=== PATIENT | female | born 1950 | race Caucasian/White ===

== ENCOUNTER 2020-05-18 09:02 | Inpatient (IN) | payer MEDICARE, SELFPAY ==
[2020-05-18] VITALS (15 sets, daily range): BP systolic 73–100; BP diastolic 46–66; PULSE 64–98; RESP 16–19; TEMP 36.2–36.8; O2SAT 96–100; BMI 17.2; BMI 20.5
--- NOTE | 2020-05-18 09:06 | ED_ITS ---
HPI - Syncope General Chief Complaint: Fall Stated Complaint: DIZZY W/FALL, ? LOC Time Seen by Provider: 05/18/20 09:06 Source: patient and EMS Mode of arrival: EMS Limitations: no limitations History of Present Illness MD complaint: loss of consciousness, felt faint and collapsed Onset (ago): minute(s) -: second(s) Prodromal symptoms: vision changes and lightheaded Witnessed: Yes - by Bystander Context: standing up (went to answer door and felt dizzy syncopized) Injuries sustained associated with event: head (bump from 2 weeks ago after recent fall) Current symptoms: lightheaded and headache History: previous syncopal episode and other (UC flare with increased diarrhea and nausea) Treatments prior to arrival: IV fluids Related Data Allergies Allergy/AdvReac Type Severity Reaction Status Date / Time strawberry [[place]] Allergy Intermediate HIVES Verified 05/18/20 10:34 Sulfa (Sulfonamide Allergy Intermediate RASH Verified 05/18/20 10:34 Antibiotics) morphine Allergy Unknown itching Verified 05/18/20 10:34 Strawberries Allergy Unknown Unknown Uncoded 05/18/20 10:34 [place] C Allergy Unknown rash Uncoded 12/07/14 00:00 Review of Systems Review of Systems: Constitutional : No Fever, No Chills, pos Fatigue, No Malaise ENT/Mouth : No sore throat, No Rhinorrhea Eyes: No Eye Pain, No Swelling, No Redness Cardiovascular : No Chest Pain, No SOB, No Dyspnea on Exertion, No Orthopnea, No Edema, No Palpitations Respiratory : No Cough, No Sputum, No Wheezing Gastrointestinal : pos Nausea, No Vomiting, pos Diarrhea, No Constipation, No abdominal Pain, pos mild chronic intermittent Hematochezia, No Melena Genitourinary : No Dysuria, No Urinary Frequency, No Hematuria, Musculoskeletal : No joint pain, No Myalgias, No Joint Swelling Skin : No Skin Lesions, No rash Neuro : No Weakness, No Numbness, No Dizziness, pos Headache Psych : No Anxiety/Panic, No Depression All other systems reviewed and are negative [facility] Past Medical History Medical History (Updated 05/18/20 @ 12:23 by Alina Neal DO) Anemia Anxiety Ulcerative colitis Surgical History (Updated 05/18/20 @ 09:33 by Ivy Willard) Hx of tubal ligation Social History Social History (Reviewed 05/18/20 @ 10:31 by LOC Andersen Smoking Status: Former smoker Use of substances other than those prescribed or required for medical reasons: No Advance Directives: No Advance Directives Information Provided: No Physical Exam Vital Signs: Vital Signs: Vital Signs Temp Pulse Resp BP Pulse Ox 05/18/20 13:04 95/50 L 05/18/20 12:22 97.6 F 93 16 99 05/18/20 12:17 98 73/49 L 05/18/20 12:14 95 89/46 L 05/18/20 12:12 86 77/46 L 05/18/20 10:30 97/64 05/18/20 10:13 95 16 93/66 05/18/20 09:05 98.2 F 81 16 99/59 L 99 Body Mass Index 17.2 Appearance: Alert. Oriented X3. No acute distress. Eyes: Pupils equal, round and reactive to light. ENT: Pharynx normal. contusion to left occiput no laceration Neck: Normal inspection. Neck supple. in collar CVS: tachycardic heart rate and rhythm. Pulses normal. Respiratory: No respiratory distress. Breath sounds normal. Abdomen: Soft and nontender. Skin: Skin warm and dry. Normal skin color. Normal skin turgor. Extremities: No lower extremity edema. No calf ttp Neuro: Oriented X 3. No motor deficit. No sensory deficit. Course Course Course Narrative: I suspect lactic acidosis and hypotension is due to dehydration and not infection or severe sepsis. repeat IVF bolus ordered still dizzy and still orthostatic will admit for further workup repeat bolus and midodrine ordered MDM - Syncope MDM Narrative Medical decision making narrative: 69 yo female with UC has had a frequent bouts of diarrhea due to recent flare and poor appetite stood up and felt dizzy then syncopized - 2nd time in 2 weeks per her will need labs, ortho VS, IVF, CT scan of head/neck, dispo per results and findings Lab Data Result diagrams: 05/18/20 09:45 05/18/20 09:46 Labs: Lab Results 05/18/20 05/18/20 05/18/20 Range/Units 09:45 09:45 09:45 WBC 5.8 (4.8-10.8) X10*3/uL RBC 3.05 L (4.20-5.50) X10*6/uL Hgb 10.3 L (12.0-16.0) g/dl Hct 30.0 L (37-47) % MCV 98.4 H (80-98) fL MCH 33.8 H (27.0-33.0) pg MCHC 34.3 (31.0-35.0) g/dl RDW 14.6 (11.0-16.0) % Plt Count 499 H (160-400) X10*3/uL MPV 8.4 L (9.4-12.3) fL Immature Gran % (Auto) 0.7 H (0.0-0.4) % Neut % (Auto) 66.9 (45-73) % Lymph % (Auto) 20.2 (20-40) % Meagher % (Auto) 11.2 H (2-11) % Eos % (Auto) 0.3 (0-4) % Baso % (Auto) 0.7 (0-2) % Lymph # (Auto) 1.2 (1.2-4.9) X10*3/uL Meagher # (Auto) 0.7 (0.1-1.2) X10*3/uL Eos # (Auto) 0.0 (0.0-0.4) X10*3/uL Baso # (Auto) 0.0 (0.0-0.2) X10*3/uL Abs Immat Gran (auto) 0.04 H (0.00-0.03) X10*3/uL Absolute Neuts (auto) 3.9 (2.0-8.3) X10*3/uL Absolute Nucleated RBC 0.000 (0.0-0.012) X10*3/uL Nucleated RBC % (auto) 0.0 (0.0-0.2) /100WBC Hold Blue Top SEE NOTE Sodium (135-145) mmol/L Potassium (3.3-5.1) mmol/l Chloride (96-108) mmol/L Carbon Dioxide (22-29) mmol/L Anion Gap (12-20) BUN (9-16) mg/dL Creatinine (0.5-1.4) mg/dL Estim Creat Clear Calc Estimated GFR Random Glucose (60-115) mg/dL Lactic Acid (0.5-2.0) mmol/L Lactic Acid Fup @ 2Hr (0.5-2.0) mmol/L Calcium (8.4-10.2) mg/dL Magnesium 1.3 L* (1.6-2.6) mg/dL Total Bilirubin 0.2 (0.0-1.0) mg/dL Direct Bilirubin 0.2 (0.0-0.5) mg/dL AST 26 (5-31) U/L ALT 19 (0-31) U/L Alkaline Phosphatase 177 H (39-117) U/L Troponin I High Sens (<3.5-17.0) ng/L Total Protein 5.3 L (6.5-8.0) g/dL Albumin 2.2 L (3.5-5.0) g/dL Lipase 10 (8-78) U/L 05/18/20 05/18/20 05/18/20 Range/Units 09:45 09:45 09:46 WBC (4.8-10.8) X10*3/uL RBC (4.20-5.50) X10*6/uL Hgb (12.0-16.0) g/dl Hct (37-47) % MCV (80-98) fL MCH (27.0-33.0) pg MCHC (31.0-35.0) g/dl RDW (11.0-16.0) % Plt Count (160-400) X10*3/uL MPV (9.4-12.3) fL Immature Gran % (Auto) (0.0-0.4) % Neut % (Auto) (45-73) % Lymph % (Auto) (20-40) % Meagher % (Auto) (2-11) % Eos % (Auto) (0-4) % Baso % (Auto) (0-2) % Lymph # (Auto) (1.2-4.9) X10*3/uL Meagher # (Auto) (0.1-1.2) X10*3/uL Eos # (Auto) (0.0-0.4) X10*3/uL Baso # (Auto) (0.0-0.2) X10*3/uL Abs Immat Gran (auto) (0.00-0.03) X10*3/uL Absolute Neuts (auto) (2.0-8.3) X10*3/uL Absolute Nucleated RBC (0.0-0.012) X10*3/uL Nucleated RBC % (auto) (0.0-0.2) /100WBC Hold Blue Top Sodium 131 L (135-145) mmol/L Potassium 3.6 (3.3-5.1) mmol/l Chloride 97 (96-108) mmol/L Carbon Dioxide 22 (22-29) mmol/L Anion Gap 16 (12-20) BUN 18 H (9-16) mg/dL Creatinine 1.01 (0.5-1.4) mg/dL Estim Creat Clear Calc 36.5 Estimated GFR 55 Random Glucose 90 (60-115) mg/dL Lactic Acid 2.9 H* (0.5-2.0) mmol/L Lactic Acid Fup @ 2Hr (0.5-2.0) mmol/L Calcium 6.7 L (8.4-10.2) mg/dL Magnesium (1.6-2.6) mg/dL Total Bilirubin (0.0-1.0) mg/dL Direct Bilirubin (0.0-0.5) mg/dL AST (5-31) U/L ALT (0-31) U/L Alkaline Phosphatase (39-117) U/L Troponin I High Sens < 3.5 (<3.5-17.0) ng/L Total Protein (6.5-8.0) g/dL Albumin (3.5-5.0) g/dL Lipase (8-78) U/L 05/18/20 Range/Units 12:41 WBC (4.8-10.8) X10*3/uL RBC (4.20-5.50) X10*6/uL Hgb (12.0-16.0) g/dl Hct (37-47) % MCV (80-98) fL MCH (27.0-33.0) pg MCHC (31.0-35.0) g/dl RDW (11.0-16.0) % Plt Count (160-400) X10*3/uL MPV (9.4-12.3) fL Immature Gran % (Auto) (0.0-0.4) % Neut % (Auto) (45-73) % Lymph % (Auto) (20-40) % Meagher % (Auto) (2-11) % Eos % (Auto) (0-4) % Baso % (Auto) (0-2) % Lymph # (Auto) (1.2-4.9) X10*3/uL Meagher # (Auto) (0.1-1.2) X10*3/uL Eos # (Auto) (0.0-0.4) X10*3/uL Baso # (Auto) (0.0-0.2) X10*3/uL Abs Immat Gran (auto) (0.00-0.03) X10*3/uL Absolute Neuts (auto) (2.0-8.3) X10*3/uL Absolute Nucleated RBC (0.0-0.012) X10*3/uL Nucleated RBC % (auto) (0.0-0.2) /100WBC Hold Blue Top Sodium (135-145) mmol/L Potassium (3.3-5.1) mmol/l Chloride (96-108) mmol/L Carbon Dioxide (22-29) mmol/L Anion Gap (12-20) BUN (9-16) mg/dL Creatinine (0.5-1.4) mg/dL Estim Creat Clear Calc Estimated GFR Random Glucose (60-115) mg/dL Lactic Acid (0.5-2.0) mmol/L Lactic Acid Fup @ 2Hr 2.0 (0.5-2.0) mmol/L Calcium (8.4-10.2) mg/dL Magnesium (1.6-2.6) mg/dL Total Bilirubin (0.0-1.0) mg/dL Direct Bilirubin (0.0-0.5) mg/dL AST (5-31) U/L ALT (0-31) U/L Alkaline Phosphatase (39-117) U/L Troponin I High Sens (<3.5-17.0) ng/L Total Protein (6.5-8.0) g/dL Albumin (3.5-5.0) g/dL Lipase (8-78) U/L ECG Data Attestation: I personally reviewed and interpreted this ECG as follows: ECG interpretation date: 05/18/20 ECG interpretation time: 09:24 Interpretation: Rate: 115 Rhythm: sinus tachycardia wtih PACs [place]: left Normal P waves. Normal MIKI. Normal QRS complex. ST T wave : nonspecific, no CHELSIE qTC: prolonged prior studies: none The study has been interpreted contemporaneously by me. . Critical Care Time Critical Care Time Critical Care Time: Yes Total Critical Care Time: 60 Attestation: 3L of IVF rescuscitation for dehydration I personally attest to this time spent taking care of the patient Discharge Plan Discharge Clinical Impression: Orthostatic hypotension Syncope Qualifiers: Syncope type: unspecified Qualified Code(s): R55 - Syncope and collapse Patient Disposition: Admitted As Inpatient
--- NOTE | 2020-05-18 09:09 | CT_ITS ---
EXAMINATION: CT HEAD WITHOUT CONTRAST CLINICAL INFORMATION: Fall COMPARISON: March 22, 2020 TECHNIQUE: Contiguous axial imaging was performed from the skull base to vertex without intravenous administration of contrast. This CT examination was performed using dose optimization techniques as appropriate, variously including the following: *Automated exposure control *Adjustment of mA and/or kV according to patient size (this includes techniques or standardized protocols for targeted exams where dose is matched to indication/reason for exam; i.e. extremities or head) *Use of iterative reconstruction technique DLP: 643 mGy-cm FINDINGS: There is no evidence of acute intracranial hemorrhage or territorial infarction. No abnormal mass effect or midline shift is seen. Anderson to white matter differentiation is well preserved. No extra-axial fluid collections are identified. There is mild prominence of the ventricles, sulci, and cisterns consistent with generalized atrophy. There is an old infarct seen involving the left frontal lobe. There is periventricular white matter low density consistent with microangiopathy. The osseous structures and soft tissues are normal. The mastoid air cells and visualized portions of the paranasal sinuses are well aerated. IMPRESSION: No acute intracranial pathology. 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
--- NOTE | 2020-05-18 09:09 | CT_ITS ---
EXAMINATION: CT CERVICAL SPINE WITHOUT CONTRAST CLINICAL INFORMATION: Fall, trauma, pain COMPARISON: CT cervical spine 03/22/2020 TECHNIQUE: Multidetector volumetric CT imaging of the cervical spine is performed without contrast in the axial plane. Additional 2D reformatted coronal and sagittal images are generated on the CT workstation and uploaded to PACS. DOSE LOWERING TECHNIQUES: This CT examination was performed using dose optimization techniques as appropriate, variously including the following: *Automated exposure control *Adjustment of mA and/or kV according to patient size (this includes techniques or standardized protocols for targeted exams where dose is matched to indication/reason for exam; i.e. extremities or head) *Use of iterative reconstruction technique DLP: 217 mGy-cm FINDINGS: There is no cervical vertebral fracture or vertebral compression. The craniocervical junction is normal. The odontoid appears. There is no prevertebral soft tissue swelling. No destructive process. There is normal lordosis with mild leftward tilting again seen on coronal imaging. There are degenerative disc changes C5-C6 with disc narrowing and vertebral spurring. Lesser degenerative disc changes are present at C6-C7 and C4-C5. There is variable bilateral facet degeneration, greatest C7-T1. Degenerative disc changes also present upper thoracic spine T1-T2. Again, there is borderline spondylolisthesis at C7-T1 similar to prior studies, likely related to the degenerative facet changes. No perched facet. Lung apices show no pneumothorax. There is some stable scarring right lung apex. Some opacified lower left mastoid air cells are again noted. No destructive process or air-fluid level. IMPRESSION: 1. No acute bony abnormality or prevertebral soft tissue swelling. 2. Variable degenerative disc and degenerative facet changes with borderline spondylolisthesis C7-T1 similar to prior imaging.
--- NOTE | 2020-05-18 09:09 | XR_ITS ---
EXAMINATION: XR CHEST CLINICAL INFORMATION: Cough COMPARISON: CT scan of March 22, 2020 and chest x-ray of May 11, 2019 TECHNIQUE: AP portable view of the chest was obtained. FINDINGS: No significant abnormality is noted involving the heart, lungs, mediastinum, bony thorax or soft tissues. There is some scarring lung bases bilaterally. IMPRESSION: No significant acute parenchymal disease.
--- NOTE | 2020-05-18 09:10 | ECG_ITS ---
Test Reason : FALL Blood Pressure : / mmHG Vent. Rate : 115 BPM Atrial Rate : 115 BPM P-R Int : 148 ms QRS Dur : 068 ms QT Int : 354 ms P-R-T Axes : 057 -26 066 degrees QTc Int : 489 ms Sinus tachycardia with frequent Premature atrial complexes Low voltage QRS Left axis deviation Nonspecific ST abnormality Abnormal ECG Compare to previous EKG Premature atrial complexes are new ST more depressed Anterolateral leads Referred By: Alina Neal Electronically Signed By:BHUPINDER WILSON MD
[2020-05-18] MEDS: 0.9 % Sodium Chloride 500 ML 999 ML IVCONT ×2 (09:26)
[2020-05-18] MEDS: Acetaminophen 325 MG TABLET 650 MG PO (09:30)
[2020-05-18 09:52] LABS: MANUAL DIFF FLAG NO
[2020-05-18 09:55] LABS: Basophils Percent Auto 0.7 % (0-2); Eosinophils Percent Auto 0.3 % (0-4); Hemoglobin 10.3 g/dl (12.0-16.0); Imm Gran Abs Auto 0.04 X10*3/uL (0.00-0.03); Imm Gran Pct Auto 0.7 % (0.0-0.4); Lymphocytes Absolute Auto 1.2 X10*3/uL (1.2-4.9); Lymphocytes Percent Auto 20.2 % (20-40); Mean Corpuscular HGB Conc 34.3 g/dl (31.0-35.0); Mean Corpuscular Hemoglobin 33.8 pg (27.0-33.0); Mean Corpuscular Volume 98.4 fL (80-98); Mean Platelet Volume 8.4 fL (9.4-12.3); Monocytes Absolute Auto 0.7 X10*3/uL (0.1-1.2); Monocytes Percent Auto 11.2 % (2-11); Neutrophils Absolute Auto 3.9 X10*3/uL (2.0-8.3); Neutrophils Percent Auto 66.9 % (45-73); Platelet Count 499 X10*3/uL (160-400); Red Blood Count 3.05 X10*6/uL (4.20-5.50); Red Cell Distribution Width 14.6 % (11.0-16.0); White Blood Count 5.8 X10*3/uL (4.8-10.8)
[2020-05-18 10:12] LABS: Lactic Acid 2.9 mmol/L (0.5-2.0)
[2020-05-18 10:14] LABS: Blood Urea Nitrogen 18 mg/dL (9-16); Creatinine Clr Calc Pharmacy 36.5; Estimated Glomerular Filt Rate 55; Glucose Random 90 mg/dL (60-115)
[2020-05-18 10:21] LABS: Alanine Aminotransferase 19 U/L (0-31); Albumin Level 2.2 g/dL (3.5-5.0); Alkaline Phosphatase 177 U/L (39-117); Aspartate Amino Transferase 26 U/L (5-31); Bilirubin Direct 0.2 mg/dL (0.0-0.5); Bilirubin Total 0.2 mg/dL (0.0-1.0); Lipase 10 U/L (8-78); Magnesium 1.3 mg/dL (1.6-2.6); Total Protein 5.3 g/dL (6.5-8.0); Troponin-I High Sensitivity < 3.5 ng/L (<3.5-17.0)
[2020-05-18 10:32] LABS: Anion Gap 16 (12-20); Calcium 6.7 mg/dL (8.4-10.2); Carbon Dioxide 22 mmol/L (22-29); Chloride 97 mmol/L (96-108); Potassium 3.6 mmol/l (3.3-5.1); Sodium 131 mmol/L (135-145)
[2020-05-18] MEDS: Magnesium Sulfate/H2O 2 GM/50 ML PIGGYBACK IV (10:35)
[2020-05-18] MEDS: 0.9 % Sodium Chloride 1,000 ML 999 ML IVCONT ×3 (11:11→14:06)
[2020-05-18 11:51] LABS: Reflex Lactate? Lactic Acid Added
--- NOTE | 2020-05-18 12:22 | PC.NURSE ---
MD AWARE OF POSITIVE ORTHO BP. PLAN FOR ADMISSION TO HOSPITAL. PT AWARE.
[2020-05-18] MEDS: Midodrine HCl 5 MG TABLET PO ×2 (14:05→15:38)
--- NOTE | 2020-05-18 14:07 | PC.NURSE ---
HOSPITALIST IN TO SEE PT FOR ADMISSION. PT BP 80'S SOMETIMES 70'S SYSTOLICALY. P REPORTS DIZZINESS WHEN SHE IS LAYED DOWN. ANOTHER LITER OF NS HUNG. ALSO ORDER FOR MIDRODRINE GIVEN. PT ALERT AND ORIENTED X 3.
[2020-05-18 14:08] LABS: SARS COV2 PCR INHOUSE NEGATIVE (Negative)
--- NOTE | 2020-05-18 16:27 | CT_ITS ---
EXAMINATION: CT ABDOMEN AND PELVIS WITHOUT CONTRAST CLINICAL INFORMATION: 69-year-old female patient with flare of ulcerative colitis. COMPARISON: Last CT of the abdomen and pelvis on 03/22/2020. ([place] ulcerative colitis. Fatty liver). TECHNIQUE: Multidetector volumetric imaging was performed from the superior aspect of the liver through the pubic symphysis. Sagittal and coronal reformatted images were obtained on the technologist's workstation. This CT examination was performed using dose optimization techniques as appropriate, variously including the following: *Automated exposure control *Adjustment of mA and/or kV according to patient size (this includes techniques or standardized protocols for targeted exams where dose is matched to indication/reason for exam; i.e. extremities or head) *Use of iterative reconstruction technique DLP: 1467 mGy-cm FINDINGS: [employer] LIBRARIAN: Air filled transverse and descending colon or ahaustral diagnostic for the patient's diagnosis of ulcerative colitis. There is no evidence of toxic megacolon. LUNG BASES: Mild dependent atelectasis involves both lower lobes. LIVER, GALLBLADDER, AND BILIARY TREE: The liver is normal in size and shape showing diffuse fatty infiltration. The bile ducts are not dilated. No focal lesions are seen. The gallbladder is normal in size. PANCREAS: Unremarkable. SPLEEN: Unremarkable. A 0.5 cm accessory spleen lies medial to the spleen. ADRENAL GLANDS: Unremarkable. KIDNEYS AND URETERS: The kidneys are normal in size, shape, and attenuation. No hydronephrosis, hydroureter, or calculi seen. A punctate calculus near the right renal hilum is felt to be vascular in origin. No acute perinephric stranding. BLADDER: Unremarkable. The hutch diverticulum on the right side is filled with urine. GASTROINTESTINAL TRACT: Again there is universal ulcerative colitis with loss of the haustral markings, and circumferential spiculation of the colonic wall. Hyperemia of the colonic wall is manifested by proliferation of the vasa rectae. There is no evidence of free air or toxic megacolon. ABDOMINAL WALL: No significant hernia is appreciated. LYMPH NODES: Normal. VASCULAR: Unremarkable. PELVIC VISCERA: Unremarkable. There is diffuse calcification of the vas deferens. OSSEOUS STRUCTURES: Degenerative disc disease involves the lumbar spine. Large Schmorl's node involves the superior endplate of L1. There is generalized facet arthropathy of the lumbar spine. IMPRESSION: 1. [place] ulcerative colitis. 2. No evidence of perforation or toxic microcolon. 3. Diffuse fatty infiltration of the liver.
--- NOTE | 2020-05-18 16:29 | P.HPIM_ITS ---
History of Present Illness Date of Service: 05/18/20 Chief Complaint: syncope this is a 69-year-old female with a past medical history of ulcerative colitis, CAD, hyperlipidemia, anemia, anxiety, alcohol abuse and dependence who presents to the hospital with complaints of a syncopal episode on the morning of adm ission. Patient reports that her home nurse was there to administer her daily medications and when the patient stood up from a supine position, she had a syncopal episode and subsequently was brought to the emergency room. Upon further questioning, the patient denies any chest pain or shortness of breath prior to this. She denies any dizziness prior to this. She does endorse that for the last 3 weeks she has had 10-15 bowel movements per day and some mild right-sided abdominal pain. She reports that she is having a ulcerative colitis flare, however she has not seen her client account specialist Dr. Tello because I've has had this problem for 20 years. in the emergency room, patient was found to be significantly hypotensive with blood pressures ranging from the 70s to 90s systolic without any symptoms of hypotension. She was given 3 L of intravenous fluids a dose of Tylenol and magnesium, 10 mg of midodrine with improvement in her blood pressure readings and subsequently admission to the floor was requested. Patient is seen and examined the emergency room. She denies any dizziness or chest pain. She reports feeling back to her baseline self and reports feeling no symptoms of hypotension. Review of Systems Review of Systems: General - no fevers or chills, no malaise HEENT - No MORALES, no dizziness Cardiovascular - no chest pain, no edema, no orthopnea Respiratory - no shortness of breath or cough, Abdominal- +N/V/D for 3 weeks, mild abdominal pain, tolerating diet at home Neuro - +weakness MSK - no MSK pain [facility] Medical History (Updated 05/18/20 @ 16:37 by Cj Jaramillo MD) Alcohol abuse Anemia Anxiety CAD (coronary artery disease) Hyperlipidemia Ulcerative colitis Family History (Updated 05/18/20 @ 16:39 by Cj Jaramillo MD) Father Liver cancer Alcoholism Surgical History (Updated 05/18/20 @ 09:33 by Ivy Willard) Hx of tubal ligation Social History Smoking Status: Former smoker Use of substances other than those prescribed or required for medical reasons: No Advance Directives: No Advance Directives Information Provided: No Meds Allergies Allergy/AdvReac Type Severity Reaction Status Date / Time strawberry [[place]] Allergy Intermediate HIVES Verified 05/18/20 10:34 Sulfa (Sulfonamide Allergy Intermediate RASH Verified 05/18/20 10:34 Antibiotics) morphine Allergy Unknown itching Verified 05/18/20 10:34 Strawberries Allergy Unknown Unknown Uncoded 05/18/20 10:34 [place] C Allergy Unknown rash Uncoded 12/07/14 00:00 Home Medications Medication Instructions Recorded Confirmed Type ascorbic acid (vitamin C) 250 mg PO DAILY 05/18/20 05/18/20 History atorvastatin 40 mg PO BEDTIME 05/18/20 05/18/20 History cyanocobalamin (vitamin B-12) 1 tab PO DAILY 05/18/20 05/18/20 History dicyclomine 20 mg PO QIDACHS PRN 05/18/20 05/18/20 History escitalopram oxalate 5 mg PO DAILY 05/18/20 05/18/20 History ferrous sulfate 325 mg PO BIDWM 05/18/20 05/18/20 History fluticasone propion-salmeterol 1 puff PO Q12H 05/18/20 05/18/20 History [Wixela Inhub] folic acid 1 mg PO DAILY 05/18/20 05/18/20 History hydroxyzine HCl 25 mg PO DAILY PRN 05/18/20 05/18/20 History loratadine 10 mg PO DAILY PRN 05/18/20 05/18/20 History mesalamine 400 mg PO QID 05/18/20 05/18/20 History nabumetone 750 mg PO BID 05/18/20 05/18/20 History omega-3 acid ethyl esters 1 g PO DAILY 05/18/20 05/18/20 History Physical Exam Vital Signs and Narrative: Vital Signs: Last Vital Signs Temp 97.6 F 05/18/20 12:22 Pulse 78 05/18/20 15:38 Resp 16 05/18/20 12:22 BP 92/55 L 05/18/20 15:38 Pulse Ox 99 05/18/20 12:22 Body Mass Index 17.2 General - no acute distress, appears comfortable HEENT - EOMI Cardiovascular - regular rate and rhythm, S1-S2 Lungs - normal respiratory effort, clear to auscultation bilaterally, no wheezing Abdomen - soft without rebound or guarding, R sided tenderness; +BS Extremities - no edema bilaterally Neuro - awake and alert, no focal deficits Skin - Warm/Dry Results Labs Labs: Laboratory Tests 05/18/20 05/18/20 05/18/20 09:45 09:45 09:45 WBC 5.8 RBC 3.05 L Hgb 10.3 L Hct 30.0 L MCV 98.4 H MCH 33.8 H MCHC 34.3 RDW 14.6 Plt Count 499 H MPV 8.4 L Immature Gran % (Auto) 0.7 H Neut % (Auto) 66.9 Lymph % (Auto) 20.2 [place] % (Auto) 11.2 H Eos % (Auto) 0.3 Baso % (Auto) 0.7 Lymph # (Auto) 1.2 [place] # (Auto) 0.7 Eos # (Auto) 0.0 Baso # (Auto) 0.0 Abs Immat Gran (auto) 0.04 H Absolute Neuts (auto) 3.9 Absolute Nucleated RBC 0.000 Nucleated RBC % (auto) 0.0 Hold Blue Top SEE NOTE Sodium Potassium Chloride Carbon Dioxide Anion Gap BUN Creatinine Estim Creat Clear Calc Estimated GFR Random Glucose Lactic Acid Lactic Acid Fup @ 2Hr Calcium Magnesium 1.3 L* Total Bilirubin 0.2 Direct Bilirubin 0.2 AST 26 ALT 19 Alkaline Phosphatase 177 H Troponin I High Sens Total Protein 5.3 L Albumin 2.2 L Lipase 10 Coronavirus (PCR) 05/18/20 05/18/20 05/18/20 09:45 09:45 09:46 WBC RBC Hgb Hct MCV MCH MCHC RDW Plt Count MPV Immature Gran % (Auto) Neut % (Auto) Lymph % (Auto) [place] % (Auto) Eos % (Auto) Baso % (Auto) Lymph # (Auto) [place] # (Auto) Eos # (Auto) Baso # (Auto) Abs Immat Gran (auto) Absolute Neuts (auto) Absolute Nucleated RBC Nucleated RBC % (auto) Hold Blue Top Sodium 131 L Potassium 3.6 Chloride 97 Carbon Dioxide 22 Anion Gap 16 BUN 18 H Creatinine 1.01 Estim Creat Clear Calc 36.5 Estimated GFR 55 Random Glucose 90 Lactic Acid 2.9 H* Lactic Acid Fup @ 2Hr Calcium 6.7 L Magnesium Total Bilirubin Direct Bilirubin AST ALT Alkaline Phosphatase Troponin I High Sens < 3.5 Total Protein Albumin Lipase Coronavirus (PCR) 05/18/20 05/18/20 12:38 12:41 WBC RBC Hgb Hct MCV MCH MCHC RDW Plt Count MPV Immature Gran % (Auto) Neut % (Auto) Lymph % (Auto) [place] % (Auto) Eos % (Auto) Baso % (Auto) Lymph # (Auto) [place] # (Auto) Eos # (Auto) Baso # (Auto) Abs Immat Gran (auto) Absolute Neuts (auto) Absolute Nucleated RBC Nucleated RBC % (auto) Hold Blue Top Sodium Potassium Chloride Carbon Dioxide Anion Gap BUN Creatinine Estim Creat Clear Calc Estimated GFR Random Glucose Lactic Acid Lactic Acid Fup @ 2Hr 2.0 Calcium Magnesium Total Bilirubin Direct Bilirubin AST ALT Alkaline Phosphatase Troponin I High Sens Total Protein Albumin Lipase Coronavirus (PCR) NEGATIVE Assessment and Plan (1) Orthostatic hypotension: Status: Acute (2) Ulcerative colitis: Status: Acute This is a 69 F with a PMH of UC, previous alcohol use (reports last drink >1 months ago) who presents to the hospital after a syncopal episode which she sustained after attempting to get up from a sitting/ supine position at home today. Upon further questioning, the patient reports that she has had right- sided abdominal pain and worsening of her chronic diarrhea, 10-15 bowel movements a day. She is admitted for significant dehydration, hypotension and ulcerative colitis flare. 1.Severe dehydration secondary to UC flare start solu-cortef aggresstive fluid resuscitation GI consult Continue her baseline for UC medications 2. hypotension No evidence of infection at this time, has improved with resuscitation. Will continue with IVF Lactate resolved with fluids alone 3. orthostasis Again suspect secondary to dehydration, will recheck an ambulate as her symptoms improved 4. previous alcohol abuse and dependence Patient reports no drink for the last 1 month Monitor with CIWA for the time being Full Code DVT pptx -- high risk, subcut. heparin
--- NOTE | 2020-05-18 17:20 | PC.NURSE ---
called to [facility] for report. waiting call back
--- NOTE | 2020-05-18 18:02 | PC.NURSE ---
CALL AGAIN TO [facility] FOR REPORT, NO ANSWER FROM RN.
[2020-05-18 18:31] LABS: C Reactive Protein 2.89 mg/dL (< or = 0.50)
[2020-05-18] MEDS: Lactated Ringers 1,000 ML 100 ML IVCONT (19:30)
[2020-05-18] MEDS: Atorvastatin Calcium 40 MG TABLET PO (21:37)
[2020-05-18] MEDS: Mesalamine 400 MG CAP.DRTAB. PO (21:37)
[2020-05-18] MEDS: Heparin Sodium,Porcine 5,000 UNIT/ML VIAL 5000 UNIT SUBCUT (21:38)
[2020-05-18] MEDS: 0.9 % Sodium Chloride Flush 3 ML SYRINGE IVFLUSH (22:23)
[2020-05-19] VITALS (13 sets, daily range): BP systolic 80–181; BP diastolic 42–92; PULSE 64–94; RESP 18–20; TEMP 36.2–36.9; O2SAT 92–99
[2020-05-19] MEDS: 0.9 % Sodium Chloride 500 ML 999 ML IVCONT ×2 (04:24→05:29)
--- NOTE | 2020-05-19 04:54 | PC.NURSE ---
Addendum entered by Danni Aguero 05/19/20 07:17: new order for midodrine 5mg po received & administered @ 0700 approx, next shift to follow Original Note: 0302 bp 82/60 manual hr 66 rr 18 asymptomatic with 10 repeat 84/52,hr 6, rr18 asymptomatic, wants tea. tiger connect to hospitalist Dr Thomas & NS 500ml NS @ 999ml/h given as ordered. Also new order obtained for regular diet & tea given as requested. s/p bolus bp repeat 82/52 on right manual and 80/48left manual @0505, re-tigerconnect texted hospitalist
[2020-05-19] MEDS: Lactated Ringers 1,000 ML 100 ML IVCONT (05:33)
[2020-05-19 06:34] LABS: Hematocrit 25.2 % (37-47); Hemoglobin 8.3 g/dl (12.0-16.0); Mean Corpuscular HGB Conc 32.9 g/dl (31.0-35.0); Mean Corpuscular Hemoglobin 33.2 pg (27.0-33.0); Mean Corpuscular Volume 100.8 fL (80-98); Mean Platelet Volume 8.7 fL (9.4-12.3); Platelet Count 373 X10*3/uL (160-400); Red Cell Distribution Width 15.3 % (11.0-16.0); White Blood Count 2.7 X10*3/uL (4.8-10.8)
[2020-05-19] MEDS: Midodrine HCl 5 MG TABLET PO (06:54)
[2020-05-19 07:02] LABS: Anion Gap 15 (12-20); Blood Urea Nitrogen 10 mg/dL (9-16); Carbon Dioxide 14 mmol/L (22-29); Chloride 108 mmol/L (96-108); Creatinine Clr Calc Pharmacy 69.6; Estimated Glomerular Filt Rate > 60; Glucose Random 119 mg/dL (60-115); Magnesium 1.7 mg/dL (1.6-2.6); Potassium 3.6 mmol/l (3.3-5.1); Sodium 133 mmol/L (135-145)
[2020-05-19 07:54] LABS: Calcium 5.4 mg/dL (8.4-10.2)
[2020-05-19] MEDS: Mesalamine 400 MG CAP.DRTAB. PO ×4 (07:55→20:53)
[2020-05-19] MEDS: Escitalopram Oxalate 5 MG TABLET PO (07:55)
[2020-05-19] MEDS: Folic Acid 1 MG TABLET PO (07:56)
[2020-05-19] MEDS: Cyanocobalamin (Vitamin B-12) 1,000 MCG TABLET 1000 MCG PO (07:56)
--- NOTE | 2020-05-19 08:06 | P.CDIC_ITS ---
CDI Concurrent Query Service Date: 05/19/20 Documentation Clarification: Please clarify if you are treating a proba ble/suspected/likely or confirmed: LAB FINDINGS: Hyponatremia Please specify if known Provider Response: Other Other Diagnosis: Hyponatremia PLEASE DO NOT DELETE/MODIFY EXISTING CONTENT Additional information is needed in order to code to the highest accuracy and appropriate Severity of Illness (SOI). Please clarify the information noted below in your progress notes and discharge summary. Risk Factors/Clinical Indicators/Treatments LABS: sodium 131 L IV fluids, severe dehydration CDS: Tamar Garcia CCS, CDIS Contact Number: [phone] Please Review the information above and exercise your independent professional judgment in responding to the query. If you concur, pleas document in the PROGRESS NOTES and DISCHARGE SUMMARY. If you do not agree with the query, please document in the query above. THIS QUERY IS PART OF THE PERMANENT MEDICAL RECORD
--- NOTE | 2020-05-19 08:11 | P.CDIC_ITS ---
CDI Concurrent Query Service Date: 05/19/20 Documentation Clarification: Please clarify if you are treating a proba ble/suspected/likely or confirmed: LABS: Hypomagnesemia Please specify if known Provider Response: Other Other Diagnosis: Hypomagnesemia PLEASE DO NOT DELETE/MODIFY EXISTING CONTENT Additional information is needed in order to code to the highest accuracy and appropriate Severity of Illness (SOI). Please clarify the information noted below in your progress notes and discharge summary. Risk Factors/Clinical Indicators/Treatments LABS: magnesium 1.3 IV fluids, magnesium Severe dehydration CDS: Tamar Garcia CCS, CDIS Contact Number: [phone] Please Review the information above and exercise your independent professional judgment in responding to the query. If you concur, pleas document in the PROGRESS NOTES and DISCHARGE SUMMARY. If you do not agree with the query, please document in the query above. THIS QUERY IS PART OF THE PERMANENT MEDICAL RECORD
[2020-05-19 08:47] LABS: Alanine Aminotransferase 13 U/L (0-31); Albumin Level 1.5 g/dL (3.5-5.0); Alkaline Phosphatase 127 U/L (39-117); Aspartate Amino Transferase 25 U/L (5-31); Bilirubin Direct < 0.2 mg/dL (0.0-0.5); Bilirubin Total 0.2 mg/dL (0.0-1.0); Total Protein 3.8 g/dL (6.5-8.0)
[2020-05-19 08:54] LABS: Band Neutrophils Percent 16 % (3-5); Basophils Percent Manual 1 % (0-1); Lymphocytes Absolute Manual 0.3 X10*3/uL (0.6-4.8); Lymphocytes Percent Manual 12 % (20-40); Neutrophils Absolute Manual 2.3 X10*3/uL (2.2-7.9); Neutrophils Percent Manual 71 % (45-73)
[2020-05-19 08:55] LABS: Macrocytosis 2+; Platelet Estimate NORMAL (NORMAL); Platelet Morphology Comment NORMAL; RBC Morphology NOTED
[2020-05-19 08:56] LABS: Hypochromasia 1+
--- NOTE | 2020-05-19 09:04 | MHC.CM.PN ---
CM met with patient at the bedside who reports she amb with a cane, lives alone and is independent. Patient states she does have a HCP, son Anshul, copy requested. Discussed discharge plan, home with resumption of services with [facility]. [facility]. CM will continue to follow for discharge needs.
--- NOTE | 2020-05-19 10:09 | P.CDIC_ITS ---
CDI Concurrent Query Service Date: 05/19/20 Documentation Clarification: Please clarify if you are treating a proba ble/suspected/likely or confirmed: Consistency: Cachexia Malnutrition, mild, moderate or severe Please specify if known or other Provider Response: Severe Protein-Calorie Malnutrition Other Diagnosis: Severe Protein-Calorie Malnutrition PLEASE DO NOT DELETE/MODIFY EXISTING CONTENT Additional information is needed in order to code to the highest accuracy and appropriate Severity of Illness (SOI). Please clarify the information noted below in your progress notes and discharge summary. Risk Factors/Clinical Indicators/Treatments BMI 17.2 Ed Total protein 5.3 3.8 Albumin 2.2 1.5 Dehydration, chronic diarrhea, poor appetite, hypotensive. IV fluids CDS: Tamar Garcia CCS, CDIS Contact Number: [phone] Please Review the information above and exercise your independent professional judgment in responding to the query. If you concur, pleas document in the PROGRESS NOTES and DISCHARGE SUMMARY. If you do not agree with the query, please document in the query above. THIS QUERY IS PART OF THE PERMANENT MEDICAL RECORD
[2020-05-19 11:10] LABS: Hematocrit 27.4 % (37-47); Hemoglobin 8.9 g/dl (12.0-16.0)
--- NOTE | 2020-05-19 11:41 | MHC.CLN ---
WILL START 2GM NA DIET R/T HX CAD WILL ALSO START ENSURE BID R/T POOR PO INTAKE FOLLOWING
[2020-05-19 12:23] LABS: Folate 17.3 ng/mL (> or = 4.0); Vitamin B12 > 2000 pg/mL (200-900)
[2020-05-19 12:34] LABS: Lactic Acid 5.1 mmol/L (0.5-2.0)
[2020-05-19 13:04] LABS: Reflex Lactate? Lactic Acid Added
--- NOTE | 2020-05-19 13:21 | CONS_ITS ---
DATE OF SERVICE: 05/19/2020 REFERRING PHYSICIAN: Cj Jaramillo MD REASON FOR CONSULTATION: Ulcerative colitis exacerbation. HISTORY OF PRESENT ILLNESS: The patient is a 69-year-old woman with longstanding history of ulcerative colitis, who was admitted to the hospital on May 18 after a syncopal episode. She reports symptoms of diarrhea with occasional bleeding over the last 3 to 4 weeks with 10 to 15 bowel movements and some mild generalized abdominal pain. Stools are described as watery with occasional red blood. She was evaluated in the emergency department with laboratory studies and noted to have hyponatremia with a mild elevation of her alkaline phosphatase. Imaging was undertaken with CT scanning of the abdomen and pelvis. This is reviewed and is interpreted as showing changes consistent with her known history of ulcerative colitis. No perforation was noted. She was admitted to the hospital and started on IV steroids and has had improvement in her diarrhea with less watery stools, only 2 this morning by her report. She reports that she has had 10 to 15 loose watery bowel movements daily over the past 3 to 4 weeks, but did not call Dr. Tello because she noted that was always Saturday when she thought to call. She last underwent colonoscopy on January 15, 2018 and had a changes of active disease with pseudopolyps and scarring. Pathology showed mild to moderate active chronic colitis without dysplasia. She has been maintained on mesalamine 1600 mg t.i.d. with Imodium. It has been recommended that she consider Humira treatment or another biologic, but she has been refractory to considering this. PAST MEDICAL HISTORY: 1. Ulcerative colitis. 2. Coronary artery disease with history of CA and negative cardiac cath. 3. Hyperlipidemia. 4. Anemia. 5. Anxiety. 6. Alcohol abuse. CURRENT MEDICATIONS: Her current medication list is reviewed in the chart. ALLERGIES: MULTIPLE MEDICATION ALLERGIES AND FOOD ALLERGIES REVIEWED. FAMILY HISTORY: This is reviewed with the patient and is noncontributory. SOCIAL HISTORY: There is no current substance abuse, she formally smoked. REVIEW OF SYSTEMS: SKIN: No pruritus. HEENT: Negative. CARDIOPULMONARY: She denies shortness of breath or chest pain. GASTROINTESTINAL: As above. GENITOURINARY: Negative. NEUROPSYCHIATRIC: Negative. PHYSICAL EXAMINATION: GENERAL: Shows a pleasant female, sitting comfortably in bed. She appears to be tolerating a diet. VITAL SIGNS: Reviewed in electronic medical record and are stable. SKIN: Anicteric. HEENT: No scleral icterus. NECK: Without lymphadenopathy or thyromegaly. LUNGS: Clear. HEART: Regular rate and rhythm. S1, S2. No murmur. ABDOMEN: Soft without focal masses or tenderness. Bowel sounds are present. No organomegaly is noted. EXTREMITIES: Without edema. LABORATORY DATA: Shows a white blood cell count of 2.7, hematocrit 25.2. IMPRESSION: Ulcerative colitis. She appears to have had an exacerbation of her symptoms over the past month and I agree with treating her with steroids as you are doing. I discussed with her the need to consider more aggressive therapy given her frequent hospitalizations in need for prednisone. She should follow up after discharge with Dr. Tello for consideration of possible biologic agent such as Humira. Thanks for asking me to see her. I will follow her in the hospital with you. MD LENI Faith/GLADYS / [phone]
[2020-05-19] MEDS: Piperacillin Sodium/Tazobactam 3.375 GM in 0.9 % Sodium Chloride 50 ML IV ×2 (13:42→20:53)
--- NOTE | 2020-05-19 14:00 | CA_ITS ---
Transthoracic Echocardiogram Patient (Last, First, Middle): Kasandra Mendez M Gender: Female Date of : 1950 Age: 69 Procedure Date: 05/19/2020 Procedure Type: Transthoracic Echocardiogram Location: [facility] Height: 157.48 cm Weight: 50.35 kg BSA: 1.49 m2 Heart Rate: bpm BP: 84 / 68 mmHg Lag Screwer: Referring MD: Cj Jaramillo MD Symptoms: ITS.REASON Conclusions: - Limited echo. - Hyperdynamic LV function. - Normal PA pressures. Findings Left Ventricle Normal left ventricular cavity size. There is mildly increased left ventricular wall thickness. The left ventricular systolic function is hyperdynamic. The visually estimated ejection fraction is >70%. There is no evidence of regional wall motion abnormalities. Diastolic function is indeterminate on the basis of available data. Right Ventricle Normal right ventricular cavity size and systolic function. Atria The left atrium is normal in size. Aortic Valve The aortic valve was not well visualized. There is mild calcification of the aortic valve. Tricuspid Valve Normal right atrial pressure. There is no evidence of pulmonary hypertension. Great Vessels All visible segments of the aorta are normal in size. Venous The inferior vena cava is normal in size and collapses greater than 50% with inspiration. Pericardium/Pleural There is no evidence of pericardial effusion. Prior Study Comparison No significant change compared to prior study dated: 07/26/2018. Measurements 2D Linear Measurements LVIDd: 3.54 3.9-5.3/4.2-5.9 cm LVIDd Index: 2.38 2.4-3.2/2.2-3.1 cm/m2 LVIDs: 2.52 2.0-3.6 cm 2D Systolic Function EF 4C: 73.90 >55% EF 2C: 75.70 >55% EF BiP: 73.80 >55% Tricuspid Valve TR Pk Juan: 2.59 TR Pk Grad: 27.00 RA Press: 3.00 RVSP: 30.00 Updated in Other Vendor System with Status of Final Jordan Barton MD electronically signed on 05/19/2020 4:47:35 PM with status of Final
[2020-05-19 14:51] LABS: ~Lactic Acid-LAB USE ONLY 5.1 mmol/L (0.5-2.0)
[2020-05-19] MEDS: Albumin Human 25 % 100 ML IV ×3 (14:55→21:16)
--- NOTE | 2020-05-19 15:53 | HO.PM.IMPN ---
Subjective Subjective Date of Service: 05/19/20 Interval History: pt seen and examined multiple times a day today. case d/w the ICU due to lactate and low bp she reports feeling much better. she reports less diarrhea this AM and less abdominal pain. reports eating for the first time in 3 days. denies fevers or chills denies dizziness at rest Review of Systems General - no fevers or chills Cardiovascular - no chest pain Respiratory - no shortness of breath or cough Abdominal- +abd pain (improved); + diarrhea Physical Exam Vital Signs: Vital Signs: Vital Signs Temp Pulse Resp BP Pulse Ox 05/19/20 12:58 84/68 L 05/19/20 12:16 97.7 F 81 18 84/58 L 98 05/19/20 08:21 97.2 F 70 18 94/55 L 98 05/19/20 06:28 97.8 F 68 20 80/42 L 05/19/20 05:08 82/52 L 05/19/20 03:31 97.7 F 64 18 83/55 L 99 05/18/20 23:32 97.7 F 67 19 93/60 100 05/18/20 18:46 97.2 F 69 16 100/55 L 97 05/18/20 17:48 64 94/62 96 05/18/20 17:34 97.6 F 74 16 96/59 L 99 Body Mass Index 20.5 General - no acute distress, appears comfortable Cardiovascular - regular rate and rhythm, S1-S2 Lungs - normal respiratory effort, clear to auscultation bilaterally, no wheezing Abdomen - soft, mild R sided tenderness without rebound or guarding, +bs Extremities - no edema bilaterally Neuro - awake and alert, no focal deficits sepsis focus exam completed Objective Data Current Medications Generic Name Dose Route Start Last Admin Trade Name Freq PRN Reason Stop Dose Admin Atorvastatin Calcium 40 mg 05/18/20 21:00 05/18/20 21:37 Atorvastatin Calcium 40 Mg Tablet PO 40 mg BEDTIME BRYANNA Administration Calcium Carbonate 500 mg 05/19/20 09:00 05/19/20 09:21 Calcium Carbonate 500 Mg Tablet PO 500 mg BID BRYANNA Administration Cyanocobalamin 1,000 mcg 05/19/20 09:00 05/19/20 07:56 Cyanocobalamin (Vitamin B-12) 1,000 Mcg Tablet PO 1,000 mcg DAILY BRYANNA Administration Escitalopram Oxalate 5 mg 05/19/20 09:00 05/19/20 07:55 Escitalopram Oxalate 5 Mg Tablet PO 5 mg DAILY BRYANNA Administration Folic Acid 1 mg 05/19/20 09:00 05/19/20 07:56 Folic Acid 1 Mg Tablet PO 1 mg DAILY BRYANNA Administration Hydroxyzine HCl 25 mg 05/18/20 18:26 Hydroxyzine Hcl 25 Mg Tablet PO DAILY PRN Weight Gain Hydrocortisone Sodium 100 mls @ 200 mls/hr 05/18/20 20:00 05/19/20 14:39 Succinate 100 mg/ Sodium IV Not Given Chloride Q8H BRYANNA Lactated Ringer's 1,000 mls @ 50 mls/hr 05/18/20 18:26 05/19/20 05:33 Lr IVCONT 100 mls/hr .Q20H BRYANNA Administration Piperacillin Sod/Tazobactam 50 mls @ 100 mls/hr 05/19/20 14:00 05/19/20 14:27 Sod 3.375 gm/ Sodium Chloride IV Infused Q6H [facility] Infusion Albumin Human 100 mls @ 100 mls/hr 05/19/20 18:00 Kedbumin 25 % IV 05/19/20 19:59 Q1H BRYANNA Loratadine 10 mg 05/18/20 18:26 Loratadine 10 Mg Tablet PO DAILY PRN allergies Mesalamine 400 mg 05/18/20 21:00 05/19/20 13:17 Mesalamine 400 Mg Cap.Drtab. PO 400 mg QID BRYANNA Administration Pharmacy Consult 1 each 05/18/20 16:19 Consult Rx Perform Med Rec MISCELLANE ONCE PRN Consult order Sodium Chloride 3 ml 05/19/20 00:00 05/19/20 07:58 0.9 % Sodium Chloride Flush 3 Ml Syringe IVFLUSH Not Given QSHIFT [facility] Labs CBC & Chem 7: 05/19/20 10:49 05/19/20 05:24 Microbiology Microbiology Results: Microbiology 05/19/20 02:35 Stool Stool Culture - Final Assessment and Plan (1) Orthostatic hypotension: Status: Acute Assessment and Plan: This is a 69 F with a PMH of UC, previous alcohol use (reports last drink >1 months ago) who presents to the hospital after a syncopal episode which she sustained after attempting to get up from a sitting/ supine position at home today. Upon further questioning, the patient reports that she has had right-sided abdominal pain and worsening of her chronic diarrhea, 10-15 bowel movements a day. She is admitted for significant dehydration, hypotension and ulcerative colitis flare. 1.UC flare, leading to severe dehydration, hypotension, LA GI and critical care input appreciated continue steroids will decrease LR to 50, use albumin although patient is hypotensive with a significant lactate -- clinically she does not appear septic and these are likely secondary to . Nonetheless, septic fluid bolus/blood cx/antibitoics and focus exam all completed. Empiric zoysn to be started. 2. hypotension see above 3. orthostasis see abbove 4. previous alcohol abuse and dependence Patient reports no drink for the last 1 month Monitor with CIWA for the time being 5. Severe protein-calorie malutrition likely 2/2 to her UC 6. HypoMg repleted 7. HypoNa hypovoluemic Full Code DVT pptx -- stop heparin (having blood in stool from UC flare), use mech. device (2) Ulcerative colitis: Status: Acute
[2020-05-19 16:00] LABS: Reflex Lactate? 2 Y
[2020-05-19] MEDS: Calcium Gluconate/NaCl,Iso-Osm 2 GM/100 ML PLAST..BAG IV (17:35)
[2020-05-19 17:50] LABS: Cancel Lactic Acid Canceled
--- NOTE | 2020-05-19 18:14 | PC.NURSE ---
Patient noted to be hypotensive, BP on right arm manually checked, 86/68. MD notifed of hypotension, at bedside to evaluate patient. Patient does c/o dizziness with movement and oob to commode. Lactic acid 5.1, MD notified. Sepsis protocol started. 1545ml NS administered, IV zosyn administered, blood cultures pending, repeat lactic acid 5.1. 2 bags IV albumin administered. Repeat BP 90/61 manually at 1750. Patient only has one IV access site, unable to obtain second one after multiple attempts. MD notified. MD order, to hold iv solucortef and LR while other medications are infusing. Patient alert and oriented, bed alarm in place for safety.
[2020-05-19] MEDS: Lactated Ringers 1,000 ML 50 ML IVCONT (20:52)
[2020-05-19] MEDS: Atorvastatin Calcium 40 MG TABLET PO (20:53)
[2020-05-19] MEDS: Acetaminophen 325 MG TABLET 650 MG PO (20:56)
[2020-05-20] VITALS (12 sets, daily range): BP systolic 87–138; BP diastolic 58–93; PULSE 69–84; RESP 16–20; TEMP 36.3–37; O2SAT 94–99
[2020-05-20] MEDS: Piperacillin Sodium/Tazobactam 3.375 GM in 0.9 % Sodium Chloride 50 ML IV ×4 (02:10→20:53)
[2020-05-20 06:29] LABS: Hematocrit 21.1 % (37-47); Imm Gran Abs Auto 0.04 X10*3/uL (0.00-0.03); Imm Gran Pct Auto 0.9 % (0.0-0.4); Lymphocytes Absolute Auto 0.6 X10*3/uL (1.2-4.9); Lymphocytes Percent Auto 14.4 % (20-40); MANUAL DIFF FLAG SCAN; Mean Corpuscular HGB Conc 32.7 g/dl (31.0-35.0); Mean Corpuscular Hemoglobin 33.2 pg (27.0-33.0); Mean Corpuscular Volume 101.4 fL (80-98); Mean Platelet Volume 8.5 fL (9.4-12.3); Monocytes Absolute Auto 0.2 X10*3/uL (0.1-1.2); Neutrophils Absolute Auto 3.6 X10*3/uL (2.0-8.3); Neutrophils Percent Auto 80.7 % (45-73); Platelet Count 366 X10*3/uL (160-400); Red Blood Count 2.08 X10*6/uL (4.20-5.50); Red Cell Distribution Width 15.6 % (11.0-16.0); SCAN SMEAR FLAG 1; White Blood Count 4.5 X10*3/uL (4.8-10.8)
[2020-05-20 06:47] LABS: Lactic Acid 2.6 mmol/L (0.5-2.0)
[2020-05-20 06:54] LABS: Anion Gap 12 (12-20); Blood Urea Nitrogen 6 mg/dL (9-16); Carbon Dioxide 16 mmol/L (22-29); Chloride 111 mmol/L (96-108); Creatinine Clr Calc Pharmacy 65.4; Estimated Glomerular Filt Rate > 60; Glucose Random 139 mg/dL (60-115); Potassium 3.4 mmol/l (3.3-5.1); Sodium 136 mmol/L (135-145)
[2020-05-20 06:57] LABS: Magnesium 1.5 mg/dL (1.6-2.6)
[2020-05-20 07:11] LABS: Calcium 6.9 mg/dL (8.4-10.2)
[2020-05-20 07:38] LABS: Hemoglobin 6.9 g/dl (12.0-16.0)
[2020-05-20 07:52] LABS: SLIDE REVIEW VERIFIED
[2020-05-20] MEDS: Acetaminophen 325 MG TABLET 650 MG PO ×3 (08:08→20:54)
[2020-05-20] MEDS: Folic Acid 1 MG TABLET PO (08:08)
[2020-05-20] MEDS: Cyanocobalamin (Vitamin B-12) 1,000 MCG TABLET 1000 MCG PO (08:09)
[2020-05-20] MEDS: Escitalopram Oxalate 5 MG TABLET PO (08:09)
[2020-05-20] MEDS: Mesalamine 400 MG CAP.DRTAB. PO ×2 (08:09→12:18)
[2020-05-20 08:11] LABS: Reflex Lactate? Lactic Acid Added
[2020-05-20] MEDS: 0.9 % Sodium Chloride Flush 3 ML SYRINGE IVFLUSH ×3 (08:13→20:19)
[2020-05-20 08:48] LABS: Cancel Lactic Acid Canceled
[2020-05-20] MEDS: Magnesium Sulfate/H2O 2 GM/50 ML PIGGYBACK IV (08:50)
[2020-05-20 09:07] LABS: Albumin Level 2.7 g/dL (3.5-5.0)
[2020-05-20] MEDS: hydrOXYzine HCL 25 MG TABLET PO (14:10)
--- NOTE | 2020-05-20 14:26 | MHC.CM.PN ---
CM spoke to [facility] Transitions of Care nurse, Angeles ([phone]) who reports she was contacted by [facility] who expressed concerns regarding pts safety. Angeles reports the pts care is externally managed by [facility] and she has asphalt tile floor layer daily. Angeles reports the asphalt tile floor layer have complained that they have not been able to provide care for the pt because she is either too hung over or vomiting every day when they go in. Angeles reports the care team members have discussed the concerns with the pts son and encouraged him to complete a section 35 however he was not comfortable doing this. Angeles reports they then requested the pts PCP follow up on this and were hoping that they would section the pt. They are now asking if the pt could be sectioned by providers here. Angeles also asks that the pt have a PT eval due to a recent fall and hopes that the pt will at least agree to inpt rehab if indicated. MATTIE will discuss concerns with hospitalist.
[2020-05-20] MEDS: Morphine Sulfate 2 MG/ML CARTRIDGE IVPUSH (14:44)
--- NOTE | 2020-05-20 15:21 | P.PNIM_ITS ---
Subjective Subjective Interval History: seen and examined report still diarrhea but feels abd pain slightly better and reports tolerating diet continues to deny alcohol use at home Physical Exam Vital Signs: Vital Signs: Vital Signs Temp Pulse Resp BP Pulse Ox 05/20/20 15:14 98.4 F 05/20/20 14:31 98.0 F 84 18 128/82 05/20/20 14:13 97.8 F 20 129/82 05/20/20 13:36 80 113/80 05/20/20 11:32 98.0 F 74 119/68 05/20/20 11:11 97.5 F 80 16 101/69 05/20/20 08:00 97.4 F 83 20 103/75 99 05/20/20 07:58 116/78 05/20/20 04:00 97.6 F 79 16 87/58 L 94 05/19/20 23:22 97.8 F 86 18 90/54 L 96 05/19/20 19:43 98.1 F 85 18 91/55 L 98 05/19/20 17:41 78 90/61 05/19/20 16:00 98.2 F 76 18 86/60 L 05/19/20 15:58 98.0 F 87 18 82/55 L 99 05/19/20 15:30 86/68 L Body Mass Index 20.5 General - no acute distress, appears comfortable Cardiovascular - regular rate and rhythm, S1-S2 Lungs - normal respiratory effort, clear to auscultation bilaterally, no wheezing Abdomen - soft, tenerness improving Extremities - no edema bilaterally Neuro - awake and alert, no focal deficits Objective Data Current Medications Generic Name Dose Route Start Last Admin Trade Name Jefferson PRN Reason Stop Dose Admin Acetaminophen 650 mg 05/19/20 17:59 05/20/20 14:02 Acetaminophen 325 Mg Tablet PO 650 mg Q6H PRN Administration Pain and Fever Atorvastatin Calcium 40 mg 05/18/20 21:00 05/19/20 20:53 Atorvastatin Calcium 40 Mg Tablet PO 40 mg BEDTIME BRYANNA Administration Calcium Carbonate 500 mg 05/19/20 09:00 05/20/20 08:09 Calcium Carbonate 500 Mg Tablet PO 500 mg BID BRYANNA Administration Cyanocobalamin 1,000 mcg 05/19/20 09:00 05/20/20 08:09 Cyanocobalamin (Vitamin B-12) 1,000 Mcg Tablet PO 1,000 mcg DAILY BRYANNA Administration Escitalopram Oxalate 5 mg 05/19/20 09:00 05/20/20 08:09 Escitalopram Oxalate 5 Mg Tablet PO 5 mg DAILY BRYANNA Administration Folic Acid 1 mg 05/19/20 09:00 05/20/20 08:08 Folic Acid 1 Mg Tablet PO 1 mg DAILY BRYANNA Administration Hydroxyzine HCl 25 mg 05/18/20 18:26 05/20/20 14:10 Hydroxyzine Hcl 25 Mg Tablet PO 25 mg DAILY PRN Administration Weight Gain Hydrocortisone Sodium 100 mls @ 200 mls/hr 05/18/20 20:00 05/20/20 12:49 Succinate 100 mg/ Sodium IV Infused Chloride Q8H BRYANNA Infusion Lactated Ringer's 1,000 mls @ 50 mls/hr 05/18/20 18:26 05/19/20 20:52 Lr IVCONT 50 mls/hr .Q20H BRYANNA Administration Piperacillin Sod/Tazobactam 50 mls @ 100 mls/hr 05/19/20 14:00 05/20/20 15:06 Sod 3.375 gm/ Sodium Chloride IV Infused Q6H BRYANNA Infusion Loratadine 10 mg 05/18/20 18:26 Loratadine 10 Mg Tablet PO DAILY PRN allergies Mesalamine 400 mg 05/18/20 21:00 05/20/20 12:18 Mesalamine 400 Mg Cap.Drtab. PO 400 mg QID BRYANNA Administration Pharmacy Consult 1 each 05/18/20 16:19 Consult Rx Perform Med Rec MISCELLANE ONCE PRN Consult order Sodium Chloride 3 ml 05/19/20 00:00 05/20/20 08:13 0.9 % Sodium Chloride Flush 3 Ml Syringe IVFLUSH 3 ml QSHIFT BRYANNA Administration Labs CBC & Chem 7: 05/20/20 05:52 05/20/20 05:52 Microbiology Microbiology Results: Microbiology 05/19/20 02:50 Stool Stool Culture - Preliminary Normal so far. 05/19/20 02:35 Stool Stool Culture - Final Assessment and Plan (1) Orthostatic hypotension: Status: Acute (2) Ulcerative colitis: Status: Acute Assessment and Plan: This is a 69 F with a PMH of UC, previous alcohol use (reports last drink >1 months ago) who presents to the hospital after a syncopal episode which she sustained after attempting to get up from a sitting/ supine position at home today. Upon further questioning, the patient reports that she has had right- sided abdominal pain and worsening of her chronic diarrhea, 10-15 bowel movements a day. She is admitted for significant dehydration, hypotension and ulcerative colitis flare. 1.UC flare, leading to severe dehydration, hypotension, LA GI and critical care input appreciated continue steroids, increase Mesalamine to 1200mg TID (D/w Dr. Meraz re: dosing) stop albumin / LR (giving PRBC) continue zosyn for now, empiric LA continues to improve as volume status improves -- no need to trend, not due to severe sepsis 2. hypotension / orthostasis improved 3. Acute on chronic blood loss anemia hb less than 7, transfuse trend h/h q6 hours post tranfusion empiric prilosec d/w GI today -- transfuse and monitor; no urgent need for scopes 4. previous alcohol abuse and dependence Patient reports no drink for the last 1 month Monitor with CIWA for the time being 5. Severe protein-calorie malutrition likely 2/2 to her UC 6. HypoMg replete 2gm iv 7. HypoNa resolved Full Code DVT pptx -- stop heparin (having blood in stool from UC flare), use mech. device
[2020-05-20 15:39] LABS: Glucose Urine UA NEG (NEG); Leukocyte Esterase Urine NEG (NEG); Nitrite Urine NEG (NEG); PH 5.5 (5.0-8.0); Specific Gravity - Urine >= 1.030 (1.005-1.025); Urine Blood NEG (NEG); Urine Ketones NEG (NEG); Urine Protein NEG (NEG-TRACE)
[2020-05-20 15:40] LABS: Appearance Urine CLEAR; Color Urine YELLOW
[2020-05-20 15:47] LABS: Bacteria Urine TRACE /LPF; RBC Urine 0 /HPF (0); Squamous Epithelial Cell Urine 1+ /LPF; WBC Urine 0 /HPF (0-4)
[2020-05-20] MEDS: Omeprazole 20 MG CAPSULE.DR PO (17:09)
[2020-05-20] MEDS: Mesalamine 400 MG CAP.DRTAB. 1200 MG PO ×2 (17:09→20:09)
--- NOTE | 2020-05-20 19:45 | MHC.CARE ---
CARE Team meets with patient after receiving a consult, indicating that pt may need additional supports when she returns home. Pt states that she lives along and often feels lonely and wants someone to talk to. CARE Team discusses the benefits of outpatient therapy with pt, however, pt declines offer of referral at this time. Pt states that she has been drinking approx 3 beers twice per week. She states I like my beer and she identifies feeling reluctant about no longer drinking. Pt identifies feeling concerned about the cost associated with drinking alcohol, and the potential from medications negatively interacting with alcohol. CARE Team uses motivation interviewing strategies when speaking with pt. She appears to be in the precontemplative phase of change. She does identify that it would be difficult to stop drinking on her own, and she agrees to speak further with a student success coach from [employer]. CARE Team provides brochure for [employer], and will refer pt to be seen by field hockey coach. The next time a field hockey coach will be present at [facility] will be this Saturday; pt reports being told that she would be here through the weekend. CARE Team speaks with JUAN CARLOS Robles regarding these interventions/recommendations.
[2020-05-20] MEDS: Atorvastatin Calcium 40 MG TABLET PO (20:10)
[2020-05-20 20:13] LABS: Hematocrit 36.4 % (37-47); Hemoglobin 12.5 g/dl (12.0-16.0)
--- NOTE | 2020-05-21 | CT_ITS ---
EXAMINATION: CT ABDOMEN AND PELVIS WITH CONTRAST CLINICAL INFORMATION: Renal impairment. COMPARISON: CT abdomen and pelvis 05/18/2020. TECHNIQUE: Multidetector volumetric images were obtained from the superior aspect of the liver through the pubic symphysis following administration 85 mL of Omnipaque 350 intravenous contrast. Sagittal and coronal reformatted images were obtained on the technologist's workstation. Oral contrast: No. This CT examination was performed using dose optimization techniques as appropriate, variously including the following: Automated exposure control. Adjustment of mA and/or kV according to patient size (this includes techniques or standardized protocols for targeted exams where dose is matched to indication/reason for exam; i.e. extremities or head). Use of iterative reconstruction technique. DLP: 358 mGy-cm FINDINGS: LUNG BASES: There is bilateral pleural effusions with bibasilar consolidation/atelectasis. The heart size is normal. LIVER, GALLBLADDER, AND BILIARY TREE: The liver is normal in size, shape, and hypoattenuation. No focal hepatic lesion or biliary ductal dilatation is present. There is mild perihepatic fluid collection There is enhancing gallbladder wall with surrounding pericholecystic fluid collection suspicious for acalculus cholecystitis. This is a new finding compared to recent CT. No radiopaque gallstones seen. PANCREAS: Unremarkable. SPLEEN: Unremarkable. ADRENAL GLANDS: Unremarkable. KIDNEYS AND URETERS: The kidneys are normal in size, shape, and attenuation. No hydronephrosis, hydroureter, or calculi seen. No perinephric stranding. BLADDER: Unremarkable. GASTROINTESTINAL TRACT: The colon and small bowel loops are normal caliber. Appendix is not visualized and no inflammatory changes in the abdomen. ABDOMINAL WALL: There is diffuse abdominal edema, new since the previous study. LYMPH NODES: Normal. VASCULAR: Unremarkable. PELVIC VISCERA: Unremarkable. OSSEOUS STRUCTURES: There are degenerative disc changes of L2-L3, L3-L4, L4-L5 and L5-S1 disc levels with posterior bulge/spondylosis L2-L3 through L5-S1 disc levels. No lytic process seen. CT/CT abdomen pelvis w con IMPRESSION: Moderate bilateral pleural effusions with underlying atelectasis. Mild ascites. Fluid surrounding the gallbladder, question acalculous cholecystitis. Correlate with clinical exam. Diffuse fatty infiltration of liver without focal lesion. Diffuse abdominal wall edema/cellulitis.
[2020-05-21] MEDS: Piperacillin Sodium/Tazobactam 3.375 GM in 0.9 % Sodium Chloride 50 ML IV ×2 (01:30→07:41)
[2020-05-21 03:19] LABS: Leukocytes Stool Qualitative NEGATIVE (NEGATIVE)
[2020-05-21 03:27] VITALS: BP 130/93; PULSE 66; RESP 18; TEMP 36.6; O2SAT 95
[2020-05-21] MEDS: Omeprazole 20 MG CAPSULE.DR PO (05:17)
[2020-05-21 07:10] VITALS: BP 126/93; PULSE 75; RESP 18; TEMP 36.4; O2SAT 99
[2020-05-21] MEDS: Acetaminophen 325 MG TABLET 650 MG PO ×2 (07:39→20:06)
[2020-05-21] MEDS: 0.9 % Sodium Chloride Flush 3 ML SYRINGE IVFLUSH ×3 (07:42→19:58)
[2020-05-21 09:10] LABS: MANUAL DIFF FLAG NO
[2020-05-21 09:17] LABS: Basophils Percent Auto 0.4 % (0-2); Hematocrit 38.5 % (37-47); Hemoglobin 13.1 g/dl (12.0-16.0); Imm Gran Abs Auto 0.25 X10*3/uL (0.00-0.03); Imm Gran Pct Auto 3.1 % (0.0-0.4); Lymphocytes Percent Auto 11.8 % (20-40); Mean Corpuscular Hemoglobin 32.7 pg (27.0-33.0); Mean Platelet Volume 8.6 fL (9.4-12.3); Monocytes Absolute Auto 0.4 X10*3/uL (0.1-1.2); Monocytes Percent Auto 4.8 % (2-11); Neutrophils Absolute Auto 6.4 X10*3/uL (2.0-8.3); Neutrophils Percent Auto 79.9 % (45-73); Platelet Count 337 X10*3/uL (160-400); Red Blood Count 4.01 X10*6/uL (4.20-5.50); Red Cell Distribution Width 16.3 % (11.0-16.0); White Blood Count 8.1 X10*3/uL (4.8-10.8)
[2020-05-21] MEDS: Morphine Sulfate 2 MG/ML CARTRIDGE IVPUSH ×2 (09:56→14:53)
[2020-05-21] MEDS: Mesalamine 400 MG CAP.DRTAB. 1200 MG PO ×4 (09:56→19:58)
[2020-05-21] MEDS: Cyanocobalamin (Vitamin B-12) 1,000 MCG TABLET 1000 MCG PO (09:56)
[2020-05-21] MEDS: Folic Acid 1 MG TABLET PO (09:56)
[2020-05-21] MEDS: Escitalopram Oxalate 5 MG TABLET PO (09:57)
[2020-05-21 10:09] LABS: Anion Gap 16 (12-20); Blood Urea Nitrogen 8 mg/dL (9-16); Calcium 7.1 mg/dL (8.4-10.2); Carbon Dioxide 15 mmol/L (22-29); Chloride 111 mmol/L (96-108); Creatinine Clr Calc Pharmacy 69.6; Estimated Glomerular Filt Rate > 60; Glucose Random 141 mg/dL (60-115); Magnesium 1.9 mg/dL (1.6-2.6); Potassium 3.9 mmol/l (3.3-5.1); Sodium 138 mmol/L (135-145)
[2020-05-21 11:12] VITALS: BP 117/88; PULSE 71; RESP 18; TEMP 36.4; O2SAT 99
--- NOTE | 2020-05-21 11:21 | P.PNIM_ITS ---
Subjective Subjective Date of Service: 05/21/20 Interval History: seen and examined. complaining of abdominal pain this AM. wasnt able to eat due to this still having diarrhea Review of Systems General - no fevers or chills Cardiovascular - no chest pain Respiratory - no shortness of breath or cough Abdominal- +pain, +diarrhea Physical Exam Vital Signs: Vital Signs: Vital Signs Temp Pulse Resp BP Pulse Ox 05/21/20 11:12 97.5 F 71 18 117/88 99 05/21/20 07:10 97.6 F 75 18 126/93 H 99 05/21/20 03:27 97.9 F 66 18 130/93 H 95 05/20/20 23:52 97.5 F 75 18 138/93 H 98 05/20/20 19:39 98.6 F 78 18 136/93 H 98 05/20/20 16:42 98.0 F 69 18 126/93 H 05/20/20 15:14 98.4 F 05/20/20 14:31 98.0 F 84 18 128/82 05/20/20 14:13 97.8 F 20 129/82 05/20/20 13:36 80 113/80 05/20/20 11:32 98.0 F 74 119/68 Body Mass Index 20.5 General - no acute distress, appears comfortable Cardiovascular - regular rate and rhythm, S1-S2 Lungs - normal respiratory effort, clear to auscultation bilaterally, no wheezing Abdomen - soft, diffuse tenderness without rebound or guarding Extremities - no edema bilaterally Neuro - awake and alert, no focal deficits Objective Data Current Medications Generic Name Dose Route Start Last Admin Trade Name Jefferson PRN Reason Stop Dose Admin Acetaminophen 650 mg 05/19/20 17:59 05/21/20 07:39 Acetaminophen 325 Mg Tablet PO 650 mg Q6H PRN Administration Pain and Fever Atorvastatin Calcium 40 mg 05/18/20 21:00 05/20/20 20:10 Atorvastatin Calcium 40 Mg Tablet PO 40 mg BEDTIME BRYANNA Administration Calcium Carbonate 500 mg 05/19/20 09:00 05/21/20 09:57 Calcium Carbonate 500 Mg Tablet PO 500 mg BID BRYANNA Administration Cyanocobalamin 1,000 mcg 05/19/20 09:00 05/21/20 09:56 Cyanocobalamin (Vitamin B-12) 1,000 Mcg Tablet PO 1,000 mcg DAILY BRYANNA Administration Escitalopram Oxalate 5 mg 05/19/20 09:00 05/21/20 09:57 Escitalopram Oxalate 5 Mg Tablet PO 5 mg DAILY BRYANNA Administration Folic Acid 1 mg 05/19/20 09:00 05/21/20 09:56 Folic Acid 1 Mg Tablet PO 1 mg DAILY BRYANNA Administration Hydroxyzine HCl 25 mg 05/18/20 18:26 05/20/20 14:10 Hydroxyzine Hcl 25 Mg Tablet PO 25 mg DAILY PRN Administration Weight Gain Hydrocortisone Sodium 100 mls @ 200 mls/hr 05/18/20 20:00 05/21/20 06:08 Succinate 100 mg/ Sodium IV Infused Chloride Q8H BRYANNA Infusion Piperacillin Sod/Tazobactam 50 mls @ 100 mls/hr 05/19/20 14:00 05/21/20 08:12 Sod 3.375 gm/ Sodium Chloride IV Infused Q6H BRYANNA Infusion Loratadine 10 mg 05/18/20 18:26 Loratadine 10 Mg Tablet PO DAILY PRN allergies Mesalamine 1,200 mg 05/20/20 17:00 05/21/20 09:56 Mesalamine 400 Mg Cap.Drtab. PO 1,200 mg QID BRYANNA Administration Morphine Sulfate 2 mg 05/21/20 09:29 05/21/20 09:56 Morphine Sulfate 2 Mg/Ml Cartridge IVPUSH 2 mg Q4H PRN Administration Pain, Severe (Pain Scale 7-10) Omeprazole 20 mg 05/20/20 15:45 05/21/20 05:17 Omeprazole 20 Mg Capsule.Dr PO 20 mg DAILY@0630 [facility] Administration Pharmacy Consult 1 each 05/18/20 16:19 Consult Rx Perform Med Rec MISCELLANE ONCE PRN Consult order Sodium Chloride 3 ml 05/19/20 00:00 05/21/20 07:42 0.9 % Sodium Chloride Flush 3 Ml Syringe IVFLUSH 3 ml QSHIFT [facility] Administration Labs CBC & Chem 7: 05/21/20 08:24 05/21/20 08:24 Microbiology Microbiology Results: Microbiology 05/19/20 02:50 Stool Stool Culture - Preliminary Normal so far. 05/19/20 13:50 Blood - Venous Blood Culture - Preliminary No growth after 24 hours. 05/19/20 13:47 Blood - Venous Blood Culture - Preliminary No growth after 24 hours. 10/22/20 02:35 Stool Stool Culture - Final Assessment and Plan (1) Orthostatic hypotension: Status: Acute (2) Ulcerative colitis: Status: Acute Assessment and Plan: This is a 69 F with a PMH of UC, previous alcohol use (reports last drink >1 months ago) who presents to the hospital after a syncopal episode which she sustained after attempting to get up from a sitting/ supine position at home today. Upon further questioning, the patient reports that she has had right- sided abdominal pain and worsening of her chronic diarrhea, 10-15 bowel movements a day. She is admitted for significant dehydration, hypotension and ulcerative colitis flare. 1.UC flare, leading to severe dehydration, hypotension, LA was doing better yesterday, now worsened in regards to her pain. Elvin check CT abd/pelvis with contrast GI follow up today Continue with steroids for the time being blood cx negative at 24 hours -- stop zosyn 2. hypotension resolved 3. Acute on chronic blood loss anemia s/p 2 units prbc with improvement in h/h 4. previous alcohol abuse and dependence Patient reports no drink for the last 1 month Monitor with CIWA for the time being 5. Severe protein-calorie malutrition likely 2/2 to her UC 6. HypoMg / hypoNa resolved Full Code DVT pptx -- stop heparin (having blood in stool from UC flare), use mech. device
--- NOTE | 2020-05-21 14:28 | PC.NURSE ---
Pt with 1 small liquid brown stool today. Awaitning CT scan
[2020-05-21] MEDS: iohexoL 350 MG/ML 100 ML INFUS..BTL IV (15:16)
[2020-05-21 16:00] VITALS: BP 145/98; PULSE 79; RESP 18; TEMP 36.2; O2SAT 98
[2020-05-21] MEDS: Atorvastatin Calcium 40 MG TABLET PO (19:58)
[2020-05-21 20:00] VITALS: BP 116/68; PULSE 75; RESP 18; TEMP 36.4; O2SAT 95
[2020-05-22] VITALS: BP 106/75; PULSE 75; RESP 20; TEMP 37; O2SAT 96
[2020-05-22] MEDS: Morphine Sulfate 2 MG/ML CARTRIDGE IVPUSH ×5 (02:27→22:14)
[2020-05-22 04:00] VITALS: BP 97/67; PULSE 77; RESP 18; TEMP 36.5; O2SAT 78
[2020-05-22] MEDS: Omeprazole 20 MG CAPSULE.DR PO (05:25)
[2020-05-22] MEDS: Acetaminophen 325 MG TABLET 650 MG PO (05:30)
[2020-05-22 06:50] LABS: MANUAL DIFF FLAG NO
[2020-05-22 07:16] LABS: Basophils Percent Auto 0.2 % (0-2); Hematocrit 37.5 % (37-47); Hemoglobin 12.5 g/dl (12.0-16.0); Imm Gran Pct Auto 1.8 % (0.0-0.4); Lymphocytes Absolute Auto 1.1 X10*3/uL (1.2-4.9); Lymphocytes Percent Auto 9.8 % (20-40); Mean Corpuscular HGB Conc 33.3 g/dl (31.0-35.0); Mean Corpuscular Hemoglobin 32.8 pg (27.0-33.0); Mean Corpuscular Volume 98.4 fL (80-98); Mean Platelet Volume 8.6 fL (9.4-12.3); Monocytes Absolute Auto 0.7 X10*3/uL (0.1-1.2); Monocytes Percent Auto 6.4 % (2-11); Neutrophils Absolute Auto 9.3 X10*3/uL (2.0-8.3); Neutrophils Percent Auto 81.8 % (45-73); Platelet Count 355 X10*3/uL (160-400); Red Blood Count 3.81 X10*6/uL (4.20-5.50); Red Cell Distribution Width 16.6 % (11.0-16.0); White Blood Count 11.3 X10*3/uL (4.8-10.8)
[2020-05-22 07:35] VITALS: BP 128/64; PULSE 88; RESP 18; TEMP 37; O2SAT 98
[2020-05-22 08:12] LABS: Anion Gap 15 (12-20); Blood Urea Nitrogen 8 mg/dL (9-16); Calcium 6.8 mg/dL (8.4-10.2); Carbon Dioxide 20 mmol/L (22-29); Chloride 109 mmol/L (96-108); Creatinine Clr Calc Pharmacy 74.4; Estimated Glomerular Filt Rate > 60; Glucose Random 97 mg/dL (60-115); Potassium 3.6 mmol/l (3.3-5.1); Sodium 140 mmol/L (135-145)
[2020-05-22] MEDS: Mesalamine 400 MG CAP.DRTAB. 1200 MG PO ×4 (08:18→20:55)
[2020-05-22] MEDS: Folic Acid 1 MG TABLET PO (08:18)
[2020-05-22] MEDS: Cyanocobalamin (Vitamin B-12) 1,000 MCG TABLET 1000 MCG PO (08:18)
[2020-05-22] MEDS: Escitalopram Oxalate 5 MG TABLET PO (08:18)
[2020-05-22] MEDS: 0.9 % Sodium Chloride Flush 3 ML SYRINGE IVFLUSH ×3 (08:19→20:55)
--- NOTE | 2020-05-22 11:25 | P.PNIM_ITS ---
Subjective Subjective Date of Service: 05/22/20 Interval History: seen and examined. better today tolerated breakfast back pain, chronic abdominal pain less Review of Systems General - no fevers or chills Cardiovascular - no chest pain Respiratory - no shortness of breath or cough Abdominal- +abd pain/diarrhea -- both improving Physical Exam Vital Signs: Vital Signs: Vital Signs Temp Pulse Resp BP Pulse Ox 05/22/20 07:35 98.6 F 88 18 128/64 98 05/22/20 04:00 97.7 F 77 18 97/67 78 L 05/22/20 00:00 98.6 F 75 20 106/75 96 05/21/20 20:00 97.6 F 75 18 116/68 95 05/21/20 16:00 97.2 F 79 18 145/98 H 98 Body Mass Index 20.5 General - no acute distress, appears comfortable Cardiovascular - regular rate and rhythm, S1-S2 Lungs - normal respiratory effort, clear to auscultation bilaterally, no wheezing Abdomen - soft, diffuse tenderness without rebound or guarding Extremities - no edema bilaterally Neuro - awake and alert, no focal deficits Objective Data Current Medications Generic Name Dose Route Start Last Admin Trade Name Freq PRN Reason Stop Dose Admin Acetaminophen 650 mg 05/19/20 17:59 05/22/20 05:30 Acetaminophen 325 Mg Tablet PO 650 mg Q6H PRN Administration Pain and Fever Atorvastatin Calcium 40 mg 05/18/20 21:00 05/21/20 19:58 Atorvastatin Calcium 40 Mg Tablet PO 40 mg BEDTIME BRYANNA Administration Calcium Carbonate 500 mg 05/19/20 09:00 05/22/20 08:18 Calcium Carbonate 500 Mg Tablet PO 500 mg BID BRYANNA Administration Cyanocobalamin 1,000 mcg 05/19/20 09:00 05/22/20 08:18 Cyanocobalamin (Vitamin B-12) 1,000 Mcg Tablet PO 1,000 mcg DAILY BRYANNA Administration Escitalopram Oxalate 5 mg 05/19/20 09:00 05/22/20 08:18 Escitalopram Oxalate 5 Mg Tablet PO 5 mg DAILY BRYANNA Administration Folic Acid 1 mg 05/19/20 09:00 05/22/20 08:18 Folic Acid 1 Mg Tablet PO 1 mg DAILY BRYANNA Administration Hydroxyzine HCl 25 mg 05/18/20 18:26 05/20/20 14:10 Hydroxyzine Hcl 25 Mg Tablet PO 25 mg DAILY PRN Administration Weight Gain Hydrocortisone Sodium 100 mls @ 200 mls/hr 05/18/20 20:00 05/22/20 06:31 Succinate 100 mg/ Sodium IV Infused Chloride Q8H BRYANNA Infusion Loperamide HCl 4 mg 05/21/20 11:22 Loperamide Hcl 2 Mg Capsule PO Q6H PRN Diarrhea Loratadine 10 mg 05/18/20 18:26 Loratadine 10 Mg Tablet PO DAILY PRN allergies Mesalamine 1,200 mg 05/20/20 17:00 05/22/20 08:18 Mesalamine 400 Mg Cap.Drtab. PO 1,200 mg QID BRYANNA Administration Morphine Sulfate 2 mg 05/21/20 09:29 05/22/20 08:18 Morphine Sulfate 2 Mg/Ml Cartridge IVPUSH 2 mg Q4H PRN Administration Pain, Severe (Pain Scale 7-10) Omeprazole 20 mg 05/20/20 15:45 05/22/20 05:25 Omeprazole 20 Mg Capsule.Dr PO 20 mg DAILY@0630 [facility] Administration Pharmacy Consult 1 each 05/18/20 16:19 Consult Rx Perform Med Rec MISCELLANE ONCE PRN Consult order Sodium Chloride 3 ml 05/19/20 00:00 05/22/20 08:19 0.9 % Sodium Chloride Flush 3 Ml Syringe IVFLUSH 3 ml QSHIFT COUNT INCLUDES THE [facility] Administration Labs CBC & Chem 7: 05/22/20 06:13 05/22/20 06:13 Microbiology Microbiology Results: Microbiology 05/19/20 02:50 Stool Stool Culture - Final 05/19/20 13:50 Blood - Venous Blood Culture - Preliminary No growth after 48 hours. 05/19/20 13:47 Blood - Venous Blood Culture - Preliminary No growth after 48 hours. 05/19/20 02:35 Stool Stool Culture - Final Assessment and Plan (1) Orthostatic hypotension: Status: Acute (2) Ulcerative colitis: Status: Acute Assessment and Plan: This is a 69 F with a PMH of UC, previous alcohol use (reports last drink >1 months ago) who presents to the hospital after a syncopal episode which she sustained after attempting to get up from a sitting/ supine position at home today. Upon further questioning, the patient reports that she has had right- sided abdominal pain and worsening of her chronic diarrhea, 10-15 bowel movements a day. She is admitted for significant dehydration, hypotension and ulcerative colitis flare. 1.UC flare, leading to severe dehydration, hypotension, LA improved again today -- repeat ct scan from yesterday reading pending continue iv steriods and if continued to improve -- change to PO by tomorrow 2. hypotension resolved 3. Acute on chronic blood loss anemia h/h stable 4. previous alcohol abuse and dependence Patient reports no drink for the last 1 month no signs of withdrawal during this hospitalization 5. Severe protein-calorie malutrition likely 2/2 to her UC supplements 6. HypoMg / hypoNa resolved 7. Generalized weakness will get pt to see her tomorrow Full Code DVT pptx -- mech device due to anemia / rectal bleeding
[2020-05-22 12:00] VITALS: BP 128/97; PULSE 69; RESP 18; TEMP 36.6; O2SAT 100
[2020-05-22 14:00] LABS: Alanine Aminotransferase 17 U/L (0-31); Albumin Level 2.9 g/dL (3.5-5.0); Alkaline Phosphatase 96 U/L (39-117); Aspartate Amino Transferase 23 U/L (5-31); Bilirubin Direct < 0.2 mg/dL (0.0-0.5); Bilirubin Total 0.4 mg/dL (0.0-1.0); Total Protein 5.3 g/dL (6.5-8.0)
[2020-05-22 16:29] VITALS: BP 131/94; PULSE 75; RESP 18; TEMP 36.2; O2SAT 96
[2020-05-22 19:07] VITALS: BP 137/93; PULSE 67; RESP 18; TEMP 36.2; O2SAT 99
[2020-05-22] MEDS: Atorvastatin Calcium 40 MG TABLET PO (20:55)
[2020-05-23] VITALS (11 sets, daily range): BP systolic 109–139; BP diastolic 66–88; PULSE 65–95; RESP 14–20; TEMP 36.3–36.8; O2SAT 95–99
[2020-05-23] MEDS: Morphine Sulfate 2 MG/ML CARTRIDGE IVPUSH ×4 (02:02→20:10)
--- NOTE | 2020-05-23 02:17 | PC.NURSE ---
Pt had episode of bright red watery stool, with bright red blood on pants. Pt states she occasionally has bloody stools. VSS. notified. H&H ordered and collected. Will continue to monitor.
[2020-05-23 02:27] LABS: Hematocrit 35.4 % (37-47); Hemoglobin 12.3 g/dl (12.0-16.0)
[2020-05-23] MEDS: Omeprazole 20 MG CAPSULE.DR PO (05:03)
[2020-05-23] MEDS: 0.9 % Sodium Chloride Flush 3 ML SYRINGE IVFLUSH ×3 (07:18→20:11)
--- NOTE | 2020-05-23 09:05 | MHC.CM.PN ---
Female 69 DX Syncope DP Resume homecare services with [facility], Family transport. CM will follow.
[2020-05-23] MEDS: Escitalopram Oxalate 5 MG TABLET PO (10:10)
[2020-05-23] MEDS: Mesalamine 400 MG CAP.DRTAB. 1200 MG PO ×4 (10:10→20:10)
[2020-05-23] MEDS: Folic Acid 1 MG TABLET PO (10:10)
[2020-05-23] MEDS: Cyanocobalamin (Vitamin B-12) 1,000 MCG TABLET 1000 MCG PO (10:10)
--- NOTE | 2020-05-23 11:59 | HO.PM.IMPN ---
Subjective Subjective Interval History: seen and examined this AM overnight had a bloody bm and again this am tolerating diet and abd pain minimal looking to go home today Physical Exam Vital Signs: Vital Signs: Vital Signs Temp Pulse Resp BP Pulse Ox 05/23/20 11:22 97.7 F 76 18 138/87 95 05/23/20 10:37 72 132/88 99 05/23/20 08:00 97.5 F 72 18 132/88 99 05/23/20 06:01 14 05/23/20 03:31 97.7 F 65 18 139/88 98 05/23/20 02:02 18 05/23/20 00:00 98.0 F 80 20 116/66 96 05/22/20 19:07 97.2 F 67 18 137/93 H 99 05/22/20 16:29 97.1 F 75 18 131/94 H 96 05/22/20 12:00 98 F 69 18 128/97 H 100 Body Mass Index 20.5 General - no acute distress, appears comfortable Cardiovascular - regular rate and rhythm, S1-S2 Lungs - normal respiratory effort, clear to auscultation bilaterally, no wheezing Abdomen - soft, diffuse tenderness without rebound or guarding Extremities - no edema bilaterally Neuro - awake and alert, no focal deficits Objective Data Current Medications Generic Name Dose Route Start Last Admin Trade Name Rufinoq PRN Reason Stop Dose Admin Acetaminophen 650 mg 05/19/20 17:59 05/22/20 05:30 Acetaminophen 325 Mg Tablet PO 650 mg Q6H PRN Administration Pain and Fever Atorvastatin Calcium 40 mg 05/18/20 21:00 05/22/20 20:55 Atorvastatin Calcium 40 Mg Tablet PO 40 mg BEDTIME BRYANNA Administration Calcium Carbonate 500 mg 05/19/20 09:00 05/23/20 10:10 Calcium Carbonate 500 Mg Tablet PO 500 mg BID BRYANNA Administration Cyanocobalamin 1,000 mcg 05/19/20 09:00 05/23/20 10:10 Cyanocobalamin (Vitamin B-12) 1,000 Mcg Tablet PO 1,000 mcg DAILY BRYANNA Administration Escitalopram Oxalate 5 mg 05/19/20 09:00 05/23/20 10:10 Escitalopram Oxalate 5 Mg Tablet PO 5 mg DAILY BRYANNA Administration Folic Acid 1 mg 05/19/20 09:00 05/23/20 10:10 Folic Acid 1 Mg Tablet PO 1 mg DAILY BRYANNA Administration Hydroxyzine HCl 25 mg 05/18/20 18:26 05/20/20 14:10 Hydroxyzine Hcl 25 Mg Tablet PO 25 mg DAILY PRN Administration Weight Gain Hydrocortisone Sodium 100 mls @ 200 mls/hr 05/18/20 20:00 05/23/20 05:33 Succinate 100 mg/ Sodium IV Infused Chloride Q8H BRYANNA Infusion Loperamide HCl 4 mg 05/21/20 11:22 Loperamide Hcl 2 Mg Capsule PO Q6H PRN Diarrhea Loratadine 10 mg 05/18/20 18:26 Loratadine 10 Mg Tablet PO DAILY PRN allergies Mesalamine 1,200 mg 05/20/20 17:00 05/23/20 10:10 Mesalamine 400 Mg Cap.Drtab. PO 1,200 mg QID [facility] Administration Morphine Sulfate 2 mg 05/21/20 09:29 05/23/20 06:01 Morphine Sulfate 2 Mg/Ml Cartridge IVPUSH 2 mg Q4H PRN Administration Pain, Severe (Pain Scale 7-10) Omeprazole 20 mg 05/20/20 15:45 05/23/20 05:03 Omeprazole 20 Mg Capsule.Dr PO 20 mg DAILY@0630 [facility] Administration Pharmacy Consult 1 each 05/18/20 16:19 Consult Rx Perform Med Rec MISCELLANE ONCE PRN Consult order Sodium Chloride 3 ml 05/19/20 00:00 05/23/20 07:18 0.9 % Sodium Chloride Flush 3 Ml Syringe IVFLUSH 3 ml QSHIFT [facility] Administration Labs CBC & Chem 7: 05/23/20 02:20 05/22/20 06:13 Microbiology Microbiology Results: Microbiology 05/19/20 02:50 Stool Stool Culture - Final 05/19/20 13:50 Blood - Venous Blood Culture - Preliminary No growth after 48 hours. 05/19/20 13:47 Blood - Venous Blood Culture - Preliminary No growth after 48 hours. 05/19/20 02:35 Stool Stool Culture - Final Assessment and Plan (1) Orthostatic hypotension: Status: Acute (2) Ulcerative colitis: Status: Acute Assessment and Plan: This is a 69 F with a PMH of UC, previous alcohol use (reports last drink >1 months ago) who presents to the hospital after a syncopal episode which she sustained after attempting to get up from a sitting/ supine position at home today. Upon further questioning, the patient reports that she has had right-sided abdominal pain and worsening of her chronic diarrhea, 10-15 bowel movements a day. She is admitted for significant dehydration, hypotension and ulcerative colitis flare. 1.UC flare, leading to severe dehydration, hypotension, LA pain has improved, but having diarrhea with some blood intermittently h/h overnight stable, f/u this AM to discuss with GI regarding furhter care 2. hypotension resolved 3. Acute on chronic blood loss anemia h/h stable overnight, check one now 4. previous alcohol abuse and dependence Patient reports no drink for the last 1 month no signs of withdrawal during this hospitalization 5. Severe protein-calorie malutrition likely 2/2 to her UC supplements 6. HypoMg / hypoNa resolved 7. Generalized weakness seen by PT -- home with +/- PT Full Code DVT pptx -- [facility] device due to anemia / rectal bleeding
[2020-05-23 15:02] LABS: Hematocrit 35.5 % (37-47); Hemoglobin 12.1 g/dl (12.0-16.0)
--- NOTE | 2020-05-23 16:32 | P.PNGI_ITS ---
Subjective Subjective Interval History: Hx via patient, RN, and EMR. Patient has some abdominal cramps and has continued bloody diarrhea. She has had approx 5 BM's today with BRB. She denies abdominal pain nor vomiting. She thinks she is definitely better than when she first came in, but still symptomatic. She is eating only fair Physical Exam Vital Signs: Vital Signs: Vital Signs Temp Pulse Resp BP Pulse Ox 05/23/20 15:08 98.2 F 95 18 131/85 99 05/23/20 13:08 18 05/23/20 11:22 97.7 F 76 18 138/87 95 05/23/20 10:37 72 132/88 99 05/23/20 08:00 97.5 F 72 18 132/88 99 05/23/20 06:01 14 05/23/20 03:31 97.7 F 65 18 139/88 98 05/23/20 02:02 18 05/23/20 00:00 98.0 F 80 20 116/66 96 05/22/20 19:07 97.2 F 67 18 137/93 H 99 Body Mass Index 20.5 Const: General: cooperative, comfortable and no acute distress Eyes: Sclerae: sclerae normal GI: Inspection: Yes normal to inspection Palpation (GI): Soft to palpation (Nontender, no mass) and No hepatosplenomegaly present Percussion: Yes normal to percussion Auscultation: normal bowel sounds Objective Data Labs CBC & Chem 7: 05/23/20 14:52 05/22/20 06:13 Labs: Laboratory Results - last 24 hr 05/20/20 05/23/20 05/23/20 05:52 02:20 13:05 Hgb 12.3 Cancelled Hct 35.4 L Cancelled Smear Path Review SEE NOTE 05/23/20 14:52 Hgb 12.1 Hct 35.5 L Smear Path Review Microbiology Microbiology Results: Microbiology 05/19/20 02:50 Stool Stool Culture - Final 05/19/20 13:50 Blood - Venous Blood Culture - Preliminary No growth after 48 hours. 05/19/20 13:47 Blood - Venous Blood Culture - Preliminary No growth after 48 hours. 05/19/20 02:35 Stool Stool Culture - Final Progress Note: A&P Assessment and plan (1) Ulcerative colitis: Status: Acute Assessment and Plan: Still having active symptoms of ulcerative colitis, although seemingly improved from admission. Her abdominal exam is benign. I'm concerned she doesn't have much insight into her illness. We did review the need for a biologic agent such as Humira given her refractory symptoms and relapses. I will order a PPD while she is here. She presently states that she is agreeable to that. I would recommend continuing the IV steroids for another 24-48 hours, along with the mesalamine. I shall add dicyclomine as well. I shall also check stool for Cdiff, and check a sed rate and CRP for the AM. D/W patient and RN. Thanks Fall Risk Details Current Medications: Current Medications Generic Name Dose Route Start Last Admin Trade Name Freq PRN Reason Stop Dose Admin Acetaminophen 650 mg 05/19/20 17:59 05/22/20 05:30 Acetaminophen 325 Mg Tablet PO 650 mg Q6H PRN Administration Pain and Fever Atorvastatin Calcium 40 mg 05/18/20 21:00 05/22/20 20:55 Atorvastatin Calcium 40 Mg Tablet PO 40 mg BEDTIME BRYANNA Administration Calcium Carbonate 500 mg 05/19/20 09:00 05/23/20 10:10 Calcium Carbonate 500 Mg Tablet PO 500 mg BID BRYANNA Administration Cyanocobalamin 1,000 mcg 05/19/20 09:00 05/23/20 10:10 Cyanocobalamin (Vitamin B-12) 1,000 Mcg Tablet PO 1,000 mcg DAILY BRYANNA Administration Escitalopram Oxalate 5 mg 05/19/20 09:00 05/23/20 10:10 Escitalopram Oxalate 5 Mg Tablet PO 5 mg DAILY BRYANNA Administration Folic Acid 1 mg 05/19/20 09:00 05/23/20 10:10 Folic Acid 1 Mg Tablet PO 1 mg DAILY BRYANNA Administration Hydroxyzine HCl 25 mg 05/18/20 18:26 05/20/20 14:10 Hydroxyzine Hcl 25 Mg Tablet PO 25 mg DAILY PRN Administration Weight Gain Hydrocortisone Sodium 100 mls @ 200 mls/hr 05/18/20 20:00 05/23/20 14:55 Succinate 100 mg/ Sodium IV Infused Chloride Q8H BRYANNA Infusion Loperamide HCl 4 mg 05/21/20 11:22 Loperamide Hcl 2 Mg Capsule PO Q6H PRN Diarrhea Loratadine 10 mg 05/18/20 18:26 Loratadine 10 Mg Tablet PO DAILY PRN allergies Mesalamine 1,200 mg 05/20/20 17:00 05/23/20 16:26 Mesalamine 400 Mg Cap.Drtab. PO 1,200 mg QID [facility]ANNA Administration Morphine Sulfate 2 mg 05/21/20 09:29 05/23/20 13:08 Morphine Sulfate 2 Mg/Ml Cartridge IVPUSH 2 mg Q4H PRN Administration Pain, Severe (Pain Scale 7-10) Omeprazole 20 mg 05/20/20 15:45 05/23/20 05:03 Omeprazole 20 Mg Capsule.Dr PO 20 mg DAILY@0630 [facility] Administration Pharmacy Consult 1 each 05/18/20 16:19 Consult Rx Perform Med Rec MISCELLANE ONCE PRN Consult order Sodium Chloride 3 ml 05/19/20 00:00 05/23/20 16:27 0.9 % Sodium Chloride Flush 3 Ml Syringe IVFLUSH 3 ml QSHIFT [facility] Administration Time Spent With Patient Time: Total time spent is greater than 50% in coordination of care (as documented) at patient's floor/unit and/or counseling patient: Time with patient: 15 - 24 minutes
[2020-05-23] MEDS: Atorvastatin Calcium 40 MG TABLET PO (20:10)
[2020-05-24] MEDS: Loperamide HCl 2 MG CAPSULE 4 MG PO (01:46)
[2020-05-24] MEDS: Morphine Sulfate 2 MG/ML CARTRIDGE IVPUSH ×2 (01:46→09:45)
[2020-05-24 02:54] VITALS: BP 138/83; PULSE 74; RESP 19; TEMP 36.5; O2SAT 97
[2020-05-24] MEDS: Omeprazole 20 MG CAPSULE.DR PO (05:20)
[2020-05-24 07:18] LABS: Alanine Aminotransferase 31 U/L (0-31); Albumin Level 2.7 g/dL (3.5-5.0); Alkaline Phosphatase 82 U/L (39-117); Aspartate Amino Transferase 40 U/L (5-31); Bilirubin Direct 0.2 mg/dL (0.0-0.5); Bilirubin Total 0.5 mg/dL (0.0-1.0); Blood Urea Nitrogen 5 mg/dL (9-16); C Reactive Protein 0.23 mg/dL (< or = 0.50); Creatinine Clr Calc Pharmacy 75.7; Estimated Glomerular Filt Rate > 60; Glucose Fasting 117 mg/dL (60-99); Total Protein 5.1 g/dL (6.5-8.0)
[2020-05-24 07:25] LABS: Anion Gap 15 (12-20); Calcium 6.4 mg/dL (8.4-10.2); Carbon Dioxide 26 mmol/L (22-29); Chloride 104 mmol/L (96-108); Potassium 2.8 mmol/l (3.3-5.1); Sodium 142 mmol/L (135-145)
[2020-05-24 07:35] LABS: Baso%MD 0.2 %; Hematocrit 37.4 % (37-47); Hemoglobin 12.6 g/dl (12.0-16.0); IG%MD 1.2 %; Lymph%MD 9.9 %; Mean Corpuscular HGB Conc 33.7 g/dl (31.0-35.0); Mean Corpuscular Hemoglobin 33.2 pg (27.0-33.0); Mean Corpuscular Volume 98.7 fL (80-98); Mean Platelet Volume 8.8 fL (9.4-12.3); Mono%MD 5.3 %; Neut%MD 83.4 %; Platelet Count 342 X10*3/uL (160-400); Red Blood Count 3.79 X10*6/uL (4.20-5.50); Red Cell Distribution Width 16.6 % (11.0-16.0); White Blood Count 10.3 X10*3/uL (4.8-10.8)
[2020-05-24 07:59] VITALS: BP 136/91; PULSE 70; RESP 18; TEMP 37.2; O2SAT 100
[2020-05-24] MEDS: Mesalamine 400 MG CAP.DRTAB. 1200 MG PO ×4 (09:45→21:23)
[2020-05-24] MEDS: Cyanocobalamin (Vitamin B-12) 1,000 MCG TABLET 1000 MCG PO (09:45)
[2020-05-24] MEDS: Escitalopram Oxalate 5 MG TABLET PO (09:45)
[2020-05-24] MEDS: Folic Acid 1 MG TABLET PO (09:46)
[2020-05-24 10:20] LABS: Lymphocytes Absolute Manual 1.6 X10*3/uL (0.6-4.8); Lymphocytes Percent Manual 16 % (20-40); Monocytes Absolute Manual 0.7 X10*3/uL (0.0-1.2); Monocytes Percent Manual 7 % (2-11); Myelocytes Absolute 0.1 X10*/uL; Myelocytes Percent 1 %; Neutrophils Percent Manual 76 % (45-73)
[2020-05-24 10:21] LABS: Band Neutrophils Percent 0 % (3-5); Neutrophils Absolute Manual 7.8 X10*3/uL (2.2-7.9); Platelet Estimate NORMAL (NORMAL); Platelet Morphology Comment NORM; RBC Morphology NORMAL
[2020-05-24] MEDS: predniSONE 20 MG TABLET 40 MG PO (10:34)
[2020-05-24] MEDS: Potassium Chloride ER 20 MEQ TAB.ER.PRT 40 MEQ PO ×2 (11:05→21:22)
[2020-05-24 11:06] LABS: Potassium 2.5 mmol/l (3.3-5.1)
[2020-05-24 11:39] VITALS: BP 113/78; PULSE 85; RESP 18; TEMP 36.3; O2SAT 98
[2020-05-24 15:26] VITALS: BP 114/79; PULSE 87; RESP 18; TEMP 36.8; O2SAT 97
--- NOTE | 2020-05-24 15:45 | P.PNIM_ITS ---
Subjective Subjective Date of Service: 05/24/20 Interval History: Patient complaining of lower abdominal pain and persistent diarrhea, no blood noted this morning, hematocrit is stable, patient tolerating diet with no nausea vomiting , noted to have low potassium of 2.5 and albumin of 2.7. Review of Systems General no headache, no dizziness, no fever, no chills. CVS no chest pain, no palpitation. Respiratory no cough,no sputum production, no respiratory distress. Physical Exam Vital Signs: Vital Signs: Vital Signs Temp Pulse Resp BP Pulse Ox 05/24/20 15:26 98.2 F 87 18 114/79 97 05/24/20 11:39 97.3 F 85 18 113/78 98 05/24/20 07:59 98.9 F 70 18 136/91 H 100 05/24/20 02:54 97.7 F 74 19 138/83 97 05/23/20 23:42 97.4 F 93 19 109/84 96 05/23/20 19:07 97.8 F 79 18 136/79 95 Body Mass Index 20.5 General patient resting comfortably ,no acute distress. Neck supple CVS regular rate rhythm, Respiratory lungs clear to auscultation, no respiratory distress, no wheeze, no rhonchi. Gastrointestinal mild abdominal discomfort to palpation mid abdomen, abdomen soft, bowel sounds audible, no guarding , no rigidity. Extremities no clubbing cyanosis or edema. Neuro nonfocal patient moving all 4 extremity, speech clear. Skin no rash Objective Data Current Medications Generic Name Dose Route Start Last Admin Trade Name Freq PRN Reason Stop Dose Admin Acetaminophen 650 mg 05/19/20 17:59 05/22/20 05:30 Acetaminophen 325 Mg Tablet PO 650 mg Q6H PRN Administration Pain and Fever Atorvastatin Calcium 40 mg 05/18/20 21:00 05/23/20 20:10 Atorvastatin Calcium 40 Mg Tablet PO 40 mg BEDTIME BRYANNA Administration Calcium Carbonate 500 mg 05/19/20 09:00 05/24/20 09:45 Calcium Carbonate 500 Mg Tablet PO 500 mg BID BRYANNA Administration Cyanocobalamin 1,000 mcg 05/19/20 09:00 05/24/20 09:45 Cyanocobalamin (Vitamin B-12) 1,000 Mcg Tablet PO 1,000 mcg DAILY BRYANNA Administration Dicyclomine HCl 10 mg 05/23/20 16:50 Dicyclomine Hcl 10 Mg Capsule PO TIDAC PRN abdominal cramps Escitalopram Oxalate 5 mg 05/19/20 09:00 05/24/20 09:45 Escitalopram Oxalate 5 Mg Tablet PO 5 mg DAILY BRYANNA Administration Folic Acid 1 mg 05/19/20 09:00 05/24/20 09:46 Folic Acid 1 Mg Tablet PO 1 mg DAILY BRYANNA Administration Hydroxyzine HCl 25 mg 05/18/20 18:26 05/20/20 14:10 Hydroxyzine Hcl 25 Mg Tablet PO 25 mg DAILY PRN Administration Weight Gain Loperamide HCl 4 mg 05/21/20 11:22 05/24/20 01:46 Loperamide Hcl 2 Mg Capsule PO 4 mg Q6H PRN Administration Diarrhea Loratadine 10 mg 05/18/20 18:26 Loratadine 10 Mg Tablet PO DAILY PRN allergies Mesalamine 1,200 mg 05/20/20 17:00 05/24/20 14:12 Mesalamine 400 Mg Cap.Drtab. PO 1,200 mg QID BRYANNA Administration Omeprazole 20 mg 05/20/20 15:45 05/24/20 05:20 Omeprazole 20 Mg Capsule.Dr PO 20 mg DAILY@0630 [facility] Administration Oxycodone HCl 2.5 mg 05/24/20 15:26 Oxycodone Hcl Immed Release 5 Mg Tablet PO Q6H PRN Pain and Fever Pharmacy Consult 1 each 05/18/20 16:19 Consult Rx Perform Med Rec MISCELLANE ONCE PRN Consult order Potassium Chloride 40 meq 05/24/20 11:00 05/24/20 11:05 Potassium Chloride Er 20 Meq Tab.Er.Prt PO 40 meq BID BRYANNA Administration Prednisone 40 mg 05/24/20 09:00 05/24/20 10:34 Prednisone 20 Mg Tablet PO 40 mg DAILY [facility] Administration Sodium Chloride 3 ml 05/19/20 00:00 05/24/20 07:26 0.9 % Sodium Chloride Flush 3 Ml Syringe IVFLUSH Not Given QSHIFT [facility] Labs CBC & Chem 7: 05/24/20 05:59 05/24/20 09:57 Microbiology Microbiology Results: Microbiology 05/19/20 02:50 Stool Stool Culture - Final 05/19/20 13:50 Blood - Venous Blood Culture - Preliminary No growth after 48 hours. 05/19/20 13:47 Blood - Venous Blood Culture - Preliminary No growth after 48 hours. 05/19/20 02:35 Stool Stool Culture - Final Assessment and Plan (1) Ulcerative colitis: Status: Acute (2) Orthostatic hypotension: Status: Acute (3) Syncope: Status: Acute (4) Anemia: Status: Acute (5) Anxiety: Status: Acute Assessment and Plan: 69 F with a PMH of UC, previous alcohol use (reports last drink >1 months ago) who presents to the hospital after a syncopal episode which she sustained after attempting to get up from a sitting/ supine position at home today. Upon further questioning, the patient reports that she has had right-sided abdominal pain and worsening of her chronic diarrhea, 10-15 bowel movements a day. She is admitted for significant dehydration, hypotension and ulcerative colitis flare. 1.UC flare, leading to severe dehydration, hypotension, LA persistent diarrhea nonbloody hematocrit stable, patient seen by Dr. Tello he recommended to continue IV steroids but patient has poor IV access therefore transition to by mouth steroids, continue mesalamine, CRP not elevated, patient agreed for Humira as an outpatient, T spot test obtained, C diff test not collected. Will encourage by mouth fluids 2. hypotension resolved, BP stable 3. Acute on chronic blood loss anemia h/h stable this a.m. 4. previous alcohol abuse and dependence Patient reports no drink for the last 1 month,no signs of withdrawal noted during this hospitalization 5. Severe protein-calorie malutrition likely 2/2 to her UC, continue Ensure supplements 6. HypoMg / hypoNa resolved 7. Generalized weakness seen by PT Due to low potassium was unable to have PT today, will discuss DC plan with PT tomorrow 8 hypokalemia due to GI loss will aggressively replete potassium by mouth, due to poor IV access,follow BMP today and tomorrow. Full Code DVT pptx -- mech device due to anemia / rectal bleeding
[2020-05-24] MEDS: oxyCODONE HCl Immed Release 5 MG TABLET 2.5 MG PO ×2 (15:55→21:23)
[2020-05-24] MEDS: Potassium Chloride ER 20 MEQ TAB.ER.PRT PO (15:55)
[2020-05-24] MEDS: 0.9 % Sodium Chloride Flush 3 ML SYRINGE IVFLUSH ×2 (15:56→21:26)
[2020-05-24 17:08] LABS: Anion Gap 15 (12-20); Carbon Dioxide 25 mmol/L (22-29); Chloride 105 mmol/L (96-108); Sodium 142 mmol/L (135-145)
[2020-05-24 19:50] VITALS: BP 149/90; PULSE 66; RESP 18; TEMP 36.6; O2SAT 96
[2020-05-24] MEDS: Atorvastatin Calcium 40 MG TABLET PO (21:23)
[2020-05-24 22:54] VITALS: BP 141/92; PULSE 80; RESP 19; TEMP 36; O2SAT 96
[2020-05-25 03:01] VITALS: BP 111/79; PULSE 69; RESP 19; TEMP 35.9; O2SAT 95
[2020-05-25] MEDS: oxyCODONE HCl Immed Release 5 MG TABLET 2.5 MG PO ×3 (04:36→18:19)
[2020-05-25] MEDS: Omeprazole 20 MG CAPSULE.DR PO (06:06)
[2020-05-25 06:21] LABS: MANUAL DIFF FLAG NO
[2020-05-25 06:42] LABS: Basophils Percent Auto 0.2 % (0-2); Eosinophils Percent Auto 0.1 % (0-4); Hematocrit 36.6 % (37-47); Hemoglobin 12.5 g/dl (12.0-16.0); Imm Gran Pct Auto 0.9 % (0.0-0.4); Lymphocytes Absolute Auto 1.3 X10*3/uL (1.2-4.9); Mean Corpuscular HGB Conc 34.2 g/dl (31.0-35.0); Mean Corpuscular Hemoglobin 32.6 pg (27.0-33.0); Mean Corpuscular Volume 95.6 fL (80-98); Mean Platelet Volume 8.3 fL (9.4-12.3); Monocytes Absolute Auto 0.6 X10*3/uL (0.1-1.2); Monocytes Percent Auto 5.2 % (2-11); Neutrophils Absolute Auto 9.1 X10*3/uL (2.0-8.3); Neutrophils Percent Auto 81.6 % (45-73); Platelet Count 373 X10*3/uL (160-400); Red Blood Count 3.83 X10*6/uL (4.20-5.50); Red Cell Distribution Width 16.3 % (11.0-16.0); White Blood Count 11.1 X10*3/uL (4.8-10.8)
[2020-05-25 06:58] LABS: Anion Gap 13 (12-20); Blood Urea Nitrogen 6 mg/dL (9-16); Calcium 6.4 mg/dL (8.4-10.2); Carbon Dioxide 28 mmol/L (22-29); Chloride 104 mmol/L (96-108); Creatinine Clr Calc Pharmacy 84.6; Estimated Glomerular Filt Rate > 60; Glucose Random 65 mg/dL (60-115); Potassium 3.3 mmol/l (3.3-5.1); Sodium 142 mmol/L (135-145)
[2020-05-25 07:36] VITALS: BP 128/74; PULSE 69; RESP 18; TEMP 36.2; O2SAT 97
--- NOTE | 2020-05-25 08:47 | MHC.CM.PN ---
dc plan is home c [facility] and [facility] [employer] [facility]. cm to cont. to follow.
[2020-05-25] MEDS: Escitalopram Oxalate 5 MG TABLET PO (08:50)
[2020-05-25] MEDS: predniSONE 20 MG TABLET 40 MG PO (08:51)
[2020-05-25] MEDS: Cyanocobalamin (Vitamin B-12) 1,000 MCG TABLET 1000 MCG PO (08:51)
[2020-05-25] MEDS: Potassium Chloride ER 20 MEQ TAB.ER.PRT 40 MEQ PO (08:51)
[2020-05-25] MEDS: Folic Acid 1 MG TABLET PO (08:51)
[2020-05-25] MEDS: 0.9 % Sodium Chloride Flush 3 ML SYRINGE IVFLUSH ×3 (08:58→20:40)
[2020-05-25 09:32] VITALS: BP 128/74; PULSE 69; O2SAT 97
[2020-05-25] MEDS: Mesalamine 400 MG CAP.DRTAB. 1200 MG PO ×4 (10:05→20:38)
[2020-05-25 11:23] VITALS: BP 109/58; PULSE 74; RESP 18; TEMP 36.6; O2SAT 97
[2020-05-25] MEDS: Loperamide HCl 2 MG CAPSULE 4 MG PO (13:13)
[2020-05-25 15:43] VITALS: BP 107/75; PULSE 85; RESP 18; O2SAT 95
--- NOTE | 2020-05-25 16:33 | HO.PM.IMPN ---
Subjective Subjective Interval History: Patient complaining of left-sided lower abdominal pain and persistent diarrhea, no blood noted in stools, patient tolerating diet with no nausea vomiting. General no headache no dizziness no fever chills. CVS no chest pain, no palpitation. Respiratory no cough,no respiratory distress. Gastrointestinal no nausea, no vomiting, complaining of left-sided lower abdominal pain and diarrhea Physical Exam Vital Signs: Vital Signs: Vital Signs Temp Pulse Resp BP Pulse Ox 05/25/20 15:43 85 18 107/75 95 05/25/20 11:23 97.8 F 74 18 109/58 L 97 05/25/20 09:32 69 128/74 97 05/25/20 07:36 97.2 F 69 18 128/74 97 05/25/20 03:01 96.6 F L 69 19 111/79 95 05/24/20 22:54 96.8 F 80 19 141/92 H 96 05/24/20 19:50 97.9 F 66 18 149/90 H 96 Body Mass Index 20.5 General patient resting comfortably ,no acute distress. Neck supple CVS regular rate rhythm, Respiratory lungs clear to auscultation, no respiratory distress, no wheeze, no rhonchi. Gastrointestinal mild abdominal discomfort to palpation left lower quadrant, bowel sounds audible, no guarding , no rigidity. Extremities no clubbing cyanosis or edema. Neuro nonfocal patient moving all 4 extremity, speech clear. Skin no rash Objective Data Current Medications Generic Name Dose Route Start Last Admin Trade Name Freq PRN Reason Stop Dose Admin Acetaminophen 650 mg 05/19/20 17:59 05/22/20 05:30 Acetaminophen 325 Mg Tablet PO 650 mg Q6H PRN Administration Pain and Fever Atorvastatin Calcium 40 mg 05/18/20 21:00 05/24/20 21:23 Atorvastatin Calcium 40 Mg Tablet PO 40 mg BEDTIME BRYANNA Administration Calcium Carbonate 500 mg 05/19/20 09:00 05/25/20 08:51 Calcium Carbonate 500 Mg Tablet PO 500 mg BID BRYANNA Administration Cyanocobalamin 1,000 mcg 05/19/20 09:00 05/25/20 08:51 Cyanocobalamin (Vitamin B-12) 1,000 Mcg Tablet PO 1,000 mcg DAILY [facility]YANNA Administration Dicyclomine HCl 10 mg 05/23/20 16:50 Dicyclomine Hcl 10 Mg Capsule PO TIDAC PRN abdominal cramps Escitalopram Oxalate 5 mg 05/19/20 09:00 05/25/20 08:50 Escitalopram Oxalate 5 Mg Tablet PO 5 mg DAILY BRYANNA Administration Folic Acid 1 mg 05/19/20 09:00 05/25/20 08:51 Folic Acid 1 Mg Tablet PO 1 mg DAILY [facility]NA Administration Hydroxyzine HCl 25 mg 05/18/20 18:26 05/20/20 14:10 Hydroxyzine Hcl 25 Mg Tablet PO 25 mg DAILY PRN Administration Weight Gain Loperamide HCl 4 mg 05/21/20 11:22 05/25/20 13:13 Loperamide Hcl 2 Mg Capsule PO 4 mg Q6H PRN Administration Diarrhea Loratadine 10 mg 05/18/20 18:26 Loratadine 10 Mg Tablet PO DAILY PRN allergies Mesalamine 1,200 mg 05/20/20 17:00 05/25/20 13:13 Mesalamine 400 Mg Cap.Drtab. PO 1,200 mg QID BRYANNA Administration Omeprazole 20 mg 05/20/20 15:45 05/25/20 06:06 Omeprazole 20 Mg Capsule.Dr PO 20 mg DAILY@0630 [facility] Administration Oxycodone HCl 2.5 mg 05/24/20 15:26 05/25/20 13:16 Oxycodone Hcl Immed Release 5 Mg Tablet PO 2.5 mg Q6H PRN Administration Pain and Fever Pharmacy Consult 1 each 05/18/20 16:19 Consult Rx Perform Med Rec MISCELLANE ONCE PRN Consult order Potassium Chloride 40 meq 05/24/20 11:00 05/25/20 08:51 Potassium Chloride Er 20 Meq Tab.Er.Prt PO 40 meq BID BRYANNA Administration Prednisone 40 mg 05/24/20 09:00 05/25/20 08:51 Prednisone 20 Mg Tablet PO 40 mg DAILY [facility] Administration Sodium Chloride 3 ml 05/19/20 00:00 05/25/20 13:17 0.9 % Sodium Chloride Flush 3 Ml Syringe IVFLUSH 3 ml QSHIFT [facility] Administration Labs CBC & Chem 7: 05/25/20 06:08 05/25/20 06:08 Microbiology Microbiology Results: Microbiology 05/19/20 13:50 Blood - Venous Blood Culture - Final No growth after 5 days. 05/19/20 13:47 Blood - Venous Blood Culture - Final No growth after 5 days. 05/19/20 02:50 Stool Stool Culture - Final 05/19/20 02:35 Stool Stool Culture - Final Assessment and Plan (1) Ulcerative colitis: Status: Acute (2) Orthostatic hypotension: Status: Acute (3) Syncope: Status: Acute (4) Anemia: Status: Acute (5) Anxiety: Status: Acute Assessment and Plan: 69 F with a PMH of UC, previous alcohol use (reports last drink >1 months ago) who presents to the hospital after a syncopal episode which she sustained after attempting to get up from a sitting/ supine position at home today. Upon further questioning, the patient reports that she has had right-sided abdominal pain and worsening of her chronic diarrhea, 10-15 bowel movements a day. She is admitted for significant dehydration, hypotension and ulcerative colitis flare. 1.UC flare, leading to severe dehydration, hypotension, LA persistent diarrhea but less frequent and nonbloody hematocrit stable, case discussed with Dr. Tello he agrees with above treatment he recommend to gradually taper steroids 5 mg Q weekly and he will arrange for outpatient Humira, continue mesalamine and Bentyl, 2. hypotension resolved, BP stable 3. Acute on chronic blood loss anemia h/h stable 4. previous alcohol abuse and dependence Patient reports no drink for the last 1 month,no signs of withdrawal noted during this hospitalization 5. Severe protein-calorie malutrition likely 2/2 to her UC, continue Ensure supplements 6. HypoMg / hypoNa resolved 7. Generalized weakness seen by PT patient declined out of bed and activity due to not feeling well and persistent diarrhea PT continue to recommend home with home PT 8 hypokalemia due to GI loss potassium improved to 3.3 will follow BMP closely. Full Code DVT pptx -- mech device due to anemia / rectal bleeding
[2020-05-25 19:22] VITALS: BP 140/89; PULSE 102; RESP 20; TEMP 36.4; O2SAT 95
[2020-05-25] MEDS: Atorvastatin Calcium 40 MG TABLET PO (20:38)
[2020-05-26] VITALS: BP 127/73; PULSE 73; RESP 18; TEMP 36.7; O2SAT 94
[2020-05-26] MEDS: oxyCODONE HCl Immed Release 5 MG TABLET 2.5 MG PO ×3 (00:15→13:27)
[2020-05-26 04:00] VITALS: BP 140/77; PULSE 69; RESP 18; TEMP 36.6; O2SAT 99
[2020-05-26] MEDS: Omeprazole 20 MG CAPSULE.DR PO (06:14)
[2020-05-26 07:08] LABS: Anion Gap 17 (12-20); Blood Urea Nitrogen 6 mg/dL (9-16); Calcium 6.5 mg/dL (8.4-10.2); Carbon Dioxide 24 mmol/L (22-29); Chloride 102 mmol/L (96-108); Creatinine Clr Calc Pharmacy 95.9; Estimated Glomerular Filt Rate > 60; Glucose Random 59 mg/dL (60-115); Potassium 3.6 mmol/l (3.3-5.1); Sodium 139 mmol/L (135-145)
[2020-05-26 07:26] VITALS: BP 147/91; PULSE 79; RESP 18; TEMP 37; O2SAT 98
[2020-05-26] MEDS: Escitalopram Oxalate 5 MG TABLET PO (09:00)
[2020-05-26] MEDS: Mesalamine 400 MG CAP.DRTAB. 1200 MG PO ×2 (09:00→13:24)
[2020-05-26] MEDS: predniSONE 20 MG TABLET 40 MG PO (09:01)
[2020-05-26] MEDS: Cyanocobalamin (Vitamin B-12) 1,000 MCG TABLET 1000 MCG PO (09:01)
[2020-05-26] MEDS: Folic Acid 1 MG TABLET PO (09:01)
[2020-05-26] MEDS: Loperamide HCl 2 MG CAPSULE 4 MG PO (09:02)
[2020-05-26] MEDS: 0.9 % Sodium Chloride Flush 3 ML SYRINGE IVFLUSH (09:06)
[2020-05-26 11:24] VITALS: BP 145/89; PULSE 95; RESP 18; TEMP 36.8; O2SAT 95
--- NOTE | 2020-05-26 11:31 | MHC.CM.PN ---
Per ROUNDS discussion, Patient will be medically cleared for dc to home today, with [facility]. Patient is active with [facility], who has been notified of today's dc. Secondd IMM addressed with Patient and the original has been given to her and a copy has been placed on the chart. Patient's daily [employer] services should resume as before.Patient is aware of and pleased with this dc plan.
--- NOTE | 2020-05-26 13:26 | PM.DS ---
DS: Providers Provider Date of admission: 05/18/20 16:27 Primary care physician: Unknown Physician Consults: 05/18/20 18:26 Consult to Gastroenterology Routine Consulting Provider: Mateus Tello Reason for consultation: diarrhea, pain, ? UC flare 05/20/20 15:08 Consult to Care Team Routine Comment: Reason for consultation: eval for home safety / support needs DS: Diagnosis Discharge Diagnosis (1) Anemia: Status: Acute (2) Anxiety: Status: Acute (3) Ulcerative colitis: Status: Acute DS: Summary Hospital Course Hospital Course: 69-year-old female with a past medical history of ulcerative colitis, CAD, hyperlipidemia, anemia, anxiety, alcohol abuse and dependence who presents to the hospital with complaints of a syncopal episode on the morning of admission. Patient reports that her home nurse was there to administer her daily medications and when the patient stood up from a supine position, she had a syncopal episode and subsequently was brought to the emergency room. Upon further questioning, the patient denies any chest pain or shortness of breath prior to this. She denies any dizziness prior to this. She does endorse that for the last 3 weeks she has had 10-15 bowel movements per day and some mild right-sided abdominal pain. 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 Tello because I've has had this problem for 20 years. in the emergency room, patient was found to be significantly hypotensive with blood pressures ranging from the 70s to 90s systolic without any symptoms of hypotension. She was given 3 L of intravenous fluids a dose of Tylenol and magnesium, 10 mg of midodrine with improvement in her blood pressure readings and subsequently admission to the floor was requested. hospital course patient admitted with a diagnosis of UC flare, leading to severe dehydration, hypotension, LA, patient treated with prednisone, mesalamine and dicyclomine patient's symptoms are gradually improving currently she is having less diarrhea no further bloody stools hematocrit remains stable case discussed with Dr. Tello he recommend to gradually taper steroids starting from 40 mg with 5 mg Q weekly taper he will arrange for outpatient Humira since patient today is feeling better therefore being discharged home with VNA and PT services. Patient also noted to have hypokalemia due to GI loss therefore 10 mEq of potassium is being dispensed currently potassium is stable, patient has been recommended to follow a low residue lactose-free diet patient was initially noted to have low blood pressure that has since stabilized. Patient hyponatremia and hypo magnesemia has also improved Time Spent with Patient Time attestation: Total time spent providing and/or coordinating discharge services: Physical Exam Vital Signs: Vital Signs: Vital Signs Temp Pulse Resp BP Pulse Ox 05/26/20 11:24 98.2 F 95 18 145/89 H 95 05/26/20 07:26 98.6 F 79 18 147/91 H 98 05/26/20 04:00 98 F 69 18 140/77 H 99 05/26/20 00:00 98.0 F 73 18 127/73 94 05/25/20 19:22 97.5 F 102 H 20 140/89 H 95 05/25/20 15:43 85 18 107/75 95 Body Mass Index 20.5 eneral patient resting comfortably in no acute distress. Neck is supple no JVD. CVS regular rate rhythm, Respiratory lungs clear to auscultation, no respiratory distress, no wheeze, no rhonchi. Gastrointestinal abdomen soft, mild left lower quadrant tenderness, with no guarding, no rigidity bowel sounds are audible Extremities no clubbing cyanosis or edema. Neuro nonfocal Skin no rash DS: Data Data Completed and Pending Labs on day of discharge: Labs from last 24 hours 05/26/20 06:02 Sodium 139 Potassium 3.6 Chloride 102 Carbon Dioxide 24 Anion Gap 17 BUN 6 L Creatinine 0.45 L Estim Creat Clear Calc 95.9 Estimated GFR > 60 Random Glucose 59 L* Calcium 6.5 L Discharge Plan Discharge Patient Disposition: Home Health Service Referrals: [facility] [Outside] Physician,Unknown [Primary Care Provider] - Discharge Medications: New dicyclomine 10 mg capsule 10 mg PO .tid prn Qty: 90 RF: 0 prednisone 5 mg tablet 5 mg PO DAILY Qty: 250 RF: 0 potassium chloride 10 mEq tablet extended release 10 meq PO DAILY Qty: 14 RF: 0 Continued atorvastatin 40 mg tablet 40 mg PO BEDTIME RF: 0 fluticasone propion-salmeterol [Wixela Inhub] 250-50 mcg/dose blister with device 1 puff PO Q12H RF: 0 cyanocobalamin (vitamin B-12) 1,000 mcg tablet 1 tab PO DAILY RF: 0 ascorbic acid (vitamin C) 250 mg tablet,chewable 250 mg PO DAILY RF: 0 ferrous sulfate 325 mg (65 mg iron) tablet 325 mg PO BIDWM RF: 0 folic acid 1 mg tablet 1 mg PO DAILY RF: 0 hydroxyzine HCl 25 mg tablet 25 mg PO DAILY PRN (Reason: Weight Gain) RF: 0 loratadine 10 mg tablet 10 mg PO DAILY PRN (Reason: allergies) RF: 0 escitalopram oxalate 5 mg tablet 5 mg PO DAILY RF: 0 omega-3 acid ethyl esters 1 gram capsule 1 g PO DAILY RF: 0 mesalamine 400 mg capsule (with del rel tablets) 400 mg PO QID RF: 0 Discontinued nabumetone 750 mg tablet 750 mg PO BID RF: 0 dicyclomine 20 mg tablet 20 mg PO QIDACHS PRN (Reason: Indigestion) RF: 0 Discharge Orders: Discharge Order (Routine); Ordered 05/26/20 Ordered By: Janes Olson Diet: low fat, low cholesterol and other Activity on Discharge: As tolerated Visit Report Forms: Patient Portal Discharge page Care Plan Goals: continue all medications as prescribed follow instructions to taper prednisone,follow lactose free low residue diet Health Concerns: follow-up with visiting services and physical therapy instructions Plan of Treatment: follow-up with Dr. Tello in 2 weeks as well as primary care physician.
--- NOTE | 2020-05-26 13:44 | PC.NURSE ---
pt continued to have some soft bowel movements this am - pt says its related to drinking milk- but continues to drink milk after MD and RN said to not at this time. Pt says I cant help it its just so good Educated pt and her son - son already knew about issues and questions why she keeps drinking milk/ Will re-educate upon todays d/c
[2020-05-26 13:46] VITALS: BP 145/89; PULSE 95; O2SAT 95
--- NOTE | 2020-05-26 13:57 | MHC.CM.PN ---
DC summary has been successfully faxed to [facility] and uploaded into [employer].
== END 2020-05-26 14:37 | disposition home health service (06) | DRG 386 ==
LOC: HO.ED 12:24 → HO.IMC 17:07
PROVIDERS: Anesthesiology; Internal Medicine; Student in an Organized Health Care Education/Training Program; Admitting Provider Family Medicine; Emergency Provider Emergency Medicine; Visit Provider Hospitalist
DX: K51.90 Ulcerative colitis, unspecified, without complications (principal); E87.1 Hypo-osmolality and hyponatremia; I95.1 Orthostatic hypotension; I25.10 Atherosclerotic heart disease of native coronary artery without angina pectoris; E83.42 Hypomagnesemia; Z68.20 Body mass index [BMI] 20.0-20.9, adult; F41.9 Anxiety disorder, unspecified; E86.0 Dehydration; F10.21 Alcohol dependence, in remission; Z20.828 Contact with and (suspected) exposure to other viral communicable diseases; Z88.2 Allergy status to sulfonamides; Z88.5 Allergy status to narcotic agent; Z87.891 Personal history of nicotine dependence; Z79.899 Other long term (current) drug therapy
CPT/HCPCS: 36415; 70450; 71045; 72125; 74176; 74177; 80048; 80051; 80076; 81003; 81015; 82040; 82607; 82746; 83605; 83690; 83735; 84132; 84484; 85007; 85014; 85018; 85025; 85027; 85060; 85652; 86140; 86481; 86850; 86900; 86901; 86920; 86923; 87040; 87045; 87046; 87635; 89055; 93005; 93308; 96361; 96365; 96366; 97110; 97116; 97162; 99232; 99284; 99285; C1758; J0610; J2270; J3475; P9016; P9047

== ENCOUNTER 2020-05-31 10:08 | Emergency (ER) | payer MEDICARE, SELFPAY ==
[2020-05-31 10:13] VITALS: BP 91/62; BP 94/54; PULSE 78; PULSE 94; RESP 16; TEMP 36.8; O2SAT 99; BMI 20.4
--- NOTE | 2020-05-31 10:14 | ED_ITS ---
HPI - Weakness General Chief complaint: Fall Stated complaint: FALL/ETOH Time Seen by Provider: 05/31/20 10:14 Source: patient, EMS and old records reviewed Mode of arrival: EMS Limitations: other (agitated at times, appears intoxicated ) History of Present Illness HPI Narrative: 69 yo female with hx of UC, ETOH abuse, anemia, orthostatic hypotension here and appears intoxicated, found down on the floor by caregiver covered in feces, denies ETOH use, states she is fine. 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 covered in feces and suspects ETOH) Associated symptoms: denies other symptoms Related Data Home Medications Medication Instructions Recorded Confirmed ascorbic acid (vitamin C) 250 mg PO DAILY 05/18/20 05/18/20 atorvastatin 40 mg PO BEDTIME 05/18/20 05/18/20 cyanocobalamin (vitamin B-12) 1 tab PO DAILY 05/18/20 05/18/20 escitalopram oxalate 5 mg PO DAILY 05/18/20 05/18/20 ferrous sulfate 325 mg PO BIDWM 05/18/20 05/18/20 fluticasone propion-salmeterol 1 puff PO Q12H 05/18/20 05/18/20 [Wixela Inhub] folic acid 1 mg PO DAILY 05/18/20 05/18/20 hydroxyzine HCl 25 mg PO DAILY PRN 05/18/20 05/18/20 loratadine 10 mg PO DAILY PRN 05/18/20 05/18/20 mesalamine 400 mg PO QID 05/18/20 05/18/20 omega-3 acid ethyl esters 1 g PO DAILY 05/18/20 05/18/20 Previous Rx's Medication Instructions Recorded dicyclomine 10 mg PO .tid prn #90 cap 05/26/20 potassium chloride 10 meq PO DAILY #14 tab 05/26/20 prednisone 5 mg PO DAILY #250 tab 05/26/20 Allergies Allergy/AdvReac Type Severity Reaction Status Date / Time strawberry [[place]] Allergy Intermediate HIVES Verified 05/18/20 10:34 Sulfa (Sulfonamide Allergy Intermediate RASH Verified 05/18/20 10:34 Antibiotics) morphine Allergy Unknown itching Verified 05/18/20 10:34 Strawberries Allergy Unknown Unknown Uncoded 05/18/20 10:34 [place] C Allergy Unknown rash Uncoded 12/07/14 00:00 Review of Systems Review of Systems: Constitutional : No Weight loss, No Fever, No Chills ENT/Mouth : No sore throat, No Rhinorrhea Eyes: No Eye Pain, No Swelling, No Redness Cardiovascular : No Chest Pain, No SOB, No Dyspnea on Exertion, No Orthopnea, No Edema, No Palpitations Respiratory : No Cough, No Sputum, No Wheezing Gastrointestinal : No Nausea, No Vomiting, pos Diarrhea, No Constipation, No abdominal Pain, No Hematochezia, No Melena Genitourinary : No Dysuria, No Urinary Frequency, No Hematuria, Musculoskeletal : No joint pain, No Myalgias, No Joint Swelling Skin : No Skin Lesions, No rash, pos bruising Neuro : No Weakness, No Numbness, No Dizziness, No Headache Psych : No Anxiety/Panic, No Depression Heme/Lymph: No Bruising, No Bleeding,No Lymphadenopathy Endocrine : No Polyuria, No Polydipsia All other systems reviewed and are negative [facility] Past Medical History Medical History Alcohol abuse Anemia Anxiety CAD (coronary artery disease) Hyperlipidemia Ulcerative colitis Surgical History Hx of tubal ligation Family History Family History (Updated 05/18/20 @ 16:39 by Cj Jaramillo MD) Father Liver cancer Alcoholism Social History Social History Household Members: None Housing: House Alcohol intake: current Smoking Status: Former smoker Second Hand Smoke Exposure: No Advance Directives: No Advance Directives Information Provided: No service: No Current occupational status: retired Physical Exam Vital Signs: Vital Signs: Vital Signs Temp Pulse Resp BP 05/31/20 10:13 98.2 F 78 16 91/62 Body Mass Index 20.4 Course Course Course Narrative: lactic acidosis due to ETOH and not infection or severe sepsis, self removed c collar, screaming at staff. up and walking refusing to stay, on phone with son very angry with us, clinically sober MDM - Weakness MDM Narrative Medical decision making narrative: 69 yo female with UC, orthostatic hypotension, CAD, ETOH abuse here after being found down covered in stool last seen yesterday, likely ETOH intoxication, will need IVF, CT head/cspine, labs, dispo per results and findings, the patient is agitated and rude at this time. denies need for detox. Lab Data Result diagrams: 05/31/20 10:49 05/31/20 10:48 Labs: Lab Results 05/31/20 05/31/20 05/31/20 Range/Units 10:47 10:48 10:48 WBC (4.8-10.8) X10*3/uL RBC (4.20-5.50) X10*6/uL Hgb (12.0-16.0) g/dl Hct (37-47) % MCV (80-98) fL MCH (27.0-33.0) pg MCHC (31.0-35.0) g/dl RDW (11.0-16.0) % Plt Count (160-400) X10*3/uL MPV (9.4-12.3) fL Immature Gran % (Auto) (0.0-0.4) % Neut % (Auto) (45-73) % Lymph % (Auto) (20-40) % [place] % (Auto) (2-11) % Eos % (Auto) (0-4) % Baso % (Auto) (0-2) % Lymph # (Auto) (1.2-4.9) X10*3/uL [place] # (Auto) (0.1-1.2) X10*3/uL Eos # (Auto) (0.0-0.4) X10*3/uL Baso # (Auto) (0.0-0.2) X10*3/uL Abs Immat Gran (auto) (0.00-0.03) X10*3/uL Absolute Neuts (auto) (2.0-8.3) X10*3/uL Absolute Nucleated RBC (0.0-0.012) X10*3/uL Nucleated RBC % (auto) (0.0-0.2) /100WBC PT 11.8 (10.8-13.0) SEC INR 1.0 (0.9-1.1) APTT 26.6 (24.1-38.0) SEC Sodium 144 (135-145) mmol/L Potassium 3.6 (3.3-5.1) mmol/l Chloride 106 (96-108) mmol/L Carbon Dioxide 23 (22-29) mmol/L Anion Gap 19 (12-20) BUN 11 D (9-16) mg/dL Creatinine 0.65 (0.5-1.4) mg/dL Estim Creat Clear Calc 66.4 Estimated GFR > 60 Random Glucose 69 (60-115) mg/dL Lactic Acid 2.9 H* (0.5-2.0) mmol/L Calcium 8.8 (8.4-10.2) mg/dL Magnesium (1.6-2.6) mg/dL Total Bilirubin 0.3 (0.0-1.0) mg/dL Direct Bilirubin 0.2 (0.0-0.5) mg/dL AST 53 H (5-31) U/L ALT 52 H (0-31) U/L Alkaline Phosphatase 79 (39-117) U/L Total Creatine Kinase 37 (26-140) U/L Troponin I High Sens (<3.5-17.0) ng/L Total Protein 6.3 L D (6.5-8.0) g/dL Albumin 3.3 L D (3.5-5.0) g/dL Lipase 43 (8-78) U/L TSH (0.32-4.0) mIU/mL Ethyl Alcohol mg/dL 05/31/20 05/31/20 05/31/20 Range/Units 10:48 10:48 10:49 WBC 7.0 (4.8-10.8) X10*3/uL RBC 3.30 L (4.20-5.50) X10*6/uL Hgb 10.8 L (12.0-16.0) g/dl Hct 32.8 L (37-47) % MCV 99.4 H (80-98) fL MCH 32.7 (27.0-33.0) pg MCHC 32.9 (31.0-35.0) g/dl RDW 16.2 H (11.0-16.0) % Plt Count 359 (160-400) X10*3/uL MPV 8.3 L (9.4-12.3) fL Immature Gran % (Auto) 0.9 H (0.0-0.4) % Neut % (Auto) 77.4 H (45-73) % Lymph % (Auto) 15.0 L (20-40) % [place] % (Auto) 6.3 (2-11) % Eos % (Auto) 0.3 (0-4) % Baso % (Auto) 0.1 (0-2) % Lymph # (Auto) 1.1 L (1.2-4.9) X10*3/uL [place] # (Auto) 0.4 (0.1-1.2) X10*3/uL Eos # (Auto) 0.0 (0.0-0.4) X10*3/uL Baso # (Auto) 0.0 (0.0-0.2) X10*3/uL Abs Immat Gran (auto) 0.06 H (0.00-0.03) X10*3/uL Absolute Neuts (auto) 5.4 (2.0-8.3) X10*3/uL Absolute Nucleated RBC 0.000 (0.0-0.012) X10*3/uL Nucleated RBC % (auto) 0.0 (0.0-0.2) /100WBC PT (10.8-13.0) SEC INR (0.9-1.1) APTT (24.1-38.0) SEC Sodium (135-145) mmol/L Potassium (3.3-5.1) mmol/l Chloride (96-108) mmol/L Carbon Dioxide (22-29) mmol/L Anion Gap (12-20) BUN (9-16) mg/dL Creatinine (0.5-1.4) mg/dL Estim Creat Clear Calc Estimated GFR Random Glucose (60-115) mg/dL Lactic Acid (0.5-2.0) mmol/L Calcium (8.4-10.2) mg/dL Magnesium 1.6 (1.6-2.6) mg/dL Total Bilirubin (0.0-1.0) mg/dL Direct Bilirubin (0.0-0.5) mg/dL AST (5-31) U/L ALT (0-31) U/L Alkaline Phosphatase (39-117) U/L Total Creatine Kinase (26-140) U/L Troponin I High Sens 5.1 (<3.5-17.0) ng/L Total Protein (6.5-8.0) g/dL Albumin (3.5-5.0) g/dL Lipase (8-78) U/L TSH 1.46 (0.32-4.0) mIU/mL Ethyl Alcohol mg/dL 05/31/20 Range/Units 10:49 WBC (4.8-10.8) X10*3/uL RBC (4.20-5.50) X10*6/uL Hgb (12.0-16.0) g/dl Hct (37-47) % MCV (80-98) fL MCH (27.0-33.0) pg MCHC (31.0-35.0) g/dl RDW (11.0-16.0) % Plt Count (160-400) X10*3/uL MPV (9.4-12.3) fL Immature Gran % (Auto) (0.0-0.4) % Neut % (Auto) (45-73) % Lymph % (Auto) (20-40) % [place] % (Auto) (2-11) % Eos % (Auto) (0-4) % Baso % (Auto) (0-2) % Lymph # (Auto) (1.2-4.9) X10*3/uL [place] # (Auto) (0.1-1.2) X10*3/uL Eos # (Auto) (0.0-0.4) X10*3/uL Baso # (Auto) (0.0-0.2) X10*3/uL Abs Immat Gran (auto) (0.00-0.03) X10*3/uL Absolute Neuts (auto) (2.0-8.3) X10*3/uL Absolute Nucleated RBC (0.0-0.012) X10*3/uL Nucleated RBC % (auto) (0.0-0.2) /100WBC PT (10.8-13.0) SEC INR (0.9-1.1) APTT (24.1-38.0) SEC Sodium (135-145) mmol/L Potassium (3.3-5.1) mmol/l Chloride (96-108) mmol/L Carbon Dioxide (22-29) mmol/L Anion Gap (12-20) BUN (9-16) mg/dL Creatinine (0.5-1.4) mg/dL Estim Creat Clear Calc Estimated GFR Random Glucose (60-115) mg/dL Lactic Acid (0.5-2.0) mmol/L Calcium (8.4-10.2) mg/dL Magnesium (1.6-2.6) mg/dL Total Bilirubin (0.0-1.0) mg/dL Direct Bilirubin (0.0-0.5) mg/dL AST (5-31) U/L ALT (0-31) U/L Alkaline Phosphatase (39-117) U/L Total Creatine Kinase (26-140) U/L Troponin I High Sens (<3.5-17.0) ng/L Total Protein (6.5-8.0) g/dL Albumin (3.5-5.0) g/dL Lipase (8-78) U/L TSH (0.32-4.0) mIU/mL Ethyl Alcohol 293 mg/dL ECG Data Attestation: I personally reviewed and interpreted this ECG as follows: ECG interpretation date: 05/31/20 ECG interpretation time: 11:01 Interpretation: Rate: 82 Rhythm: NSR [place]: normal Normal P waves. Normal MIKI. Normal QRS complex. ST T wave : normal qTC: normal prior studies: some artifact, no acute ischemia The study has been interpreted contemporaneously by me. . Discharge Plan Discharge Clinical Impression: Alcohol intoxication Patient Disposition: Home, Self-Care Instructions: Abuse of Alcohol (ED) Additional Instructions: return to ED for any worsening symptoms or concerns Prescriptions: No Action atorvastatin 40 mg tablet 40 mg PO BEDTIME RF: 0 fluticasone propion-salmeterol [Wixela Inhub] 250-50 mcg/dose blister with device 1 puff PO Q12H RF: 0 cyanocobalamin (vitamin B-12) 1,000 mcg tablet 1 tab PO DAILY RF: 0 ascorbic acid (vitamin C) 250 mg tablet,chewable 250 mg PO DAILY RF: 0 ferrous sulfate 325 mg (65 mg iron) tablet 325 mg PO BIDWM RF: 0 folic acid 1 mg tablet 1 mg PO DAILY RF: 0 hydroxyzine HCl 25 mg tablet 25 mg PO DAILY PRN (Reason: Weight Gain) RF: 0 loratadine 10 mg tablet 10 mg PO DAILY PRN (Reason: allergies) RF: 0 escitalopram oxalate 5 mg tablet 5 mg PO DAILY RF: 0 omega-3 acid ethyl esters 1 gram capsule 1 g PO DAILY RF: 0 mesalamine 400 mg capsule (with del rel tablets) 400 mg PO QID RF: 0 dicyclomine 10 mg capsule 10 mg PO .tid prn Qty: 90 RF: 0 prednisone 5 mg tablet 5 mg PO DAILY Qty: 250 RF: 0 potassium chloride 10 mEq tablet extended release 10 meq PO DAILY Qty: 14 RF: 0 Referrals: Physician,Unknown [Primary Care Provider] - 2 days (if not better)
--- NOTE | 2020-05-31 10:15 | CT_ITS ---
EXAMINATION: HEAD CT WITHOUT CONTRAST CLINICAL INFORMATION: Fall COMPARISON: Previous head CT scans most recent 05/18/2020 TECHNIQUE: Axial images through the brain without contrast. Sagittal and coronal reconstructions on the technologist workstation were performed. Patient dose 596 mg/cm. FINDINGS: There is no evidence of an extra-axial collection. There is no evidence of intra-axial or extra-axial hemorrhage. Ventricles and extra-axial CSF spaces are prominent suggestive of generalized atrophy. There is low-attenuation seen in the inferior left frontal lobe suggestive of encephalomalacia from previous hemorrhage similar to previous April 2020 exam. There is mild nonspecific periventricular white matter disease changes. No mass, mass effect or acute infarct is seen. Review at bone windows demonstrates no skull fracture. Visualized paranasal sinuses, mastoid air cells and middle ears are clear. CT/CT cervical spine wo con IMPRESSION: Generalized atrophy and nonspecific periventricular white matter disease. EXAMINATION: Cervical spine CT CLINICAL INFORMATION: Fall COMPARISON: Previous exam February 2020 TECHNIQUE: Axial images through the cervical spine without contrast. Sagittal and coronal reconstructions on the technologist workstation were performed. Patient dose 2 9 6 mgy/cm. FINDINGS: Bone alignment is normal. No fracture or dislocation is seen. There is multilevel degenerative spondylosis and degenerative disc disease from C4-C5 to C6-C7 and at T1 to. There is bilateral multilevel facet arthritis, left greater than right, greatest at C7-T1. Prevertebral soft tissues are normal. There is a small 3 mm calcified right upper lobe nodule. The visualized lung apices are otherwise clear. There are small bilateral pleural effusions new prior exam. There is question of mild wall thickening of the visualized proximal thoracic esophagus. IMPRESSION: Degenerative changes. No fracture or dislocation seen. New small bilateral pleural effusions. Question wall thickening of the proximal cervical esophagus.
--- NOTE | 2020-05-31 10:15 | ECG_ITS ---
Test Reason : FALL Blood Pressure : / mmHG Vent. Rate : 082 BPM Atrial Rate : 082 BPM P-R Int : 128 ms QRS Dur : 068 ms QT Int : 388 ms P-R-T Axes : 036 020 040 degrees QTc Int : 453 ms Normal sinus rhythm Low voltage QRS Borderline ECG When compared with ECG of 18-MAY-2020 09:16, Premature atrial complexes are no longer Present Heart rate has decreased Referred By: Alina Neal Electronically Signed By:BHUPINDER WILSON MD
--- NOTE | 2020-05-31 10:16 | XR_ITS ---
EXAMINATION: XR CHEST CLINICAL INFORMATION: Fall. COMPARISON: Chest 05/18/2020 TECHNIQUE: Frontal view of the chest was obtained. FINDINGS: Lungs are well-expanded with increased findings interstitial markings in both lungs but no consolidation seen. There is mild blunting of bilateral CP angle from pleural thickening or effusion. The heart size and pulmonary vascularity is normal. There is mild spondylosis dorsal spine. No lytic process. XR/XR chest 1V IMPRESSION: Mild increased fine interstitial markings likely chronic changes with with bilateral pleural effusion or pleural thickening. There is no pneumothorax.
[2020-05-31 10:59] LABS: MANUAL DIFF FLAG NO
[2020-05-31 11:00] LABS: Basophils Percent Auto 0.1 % (0-2); Eosinophils Percent Auto 0.3 % (0-4); Hematocrit 32.8 % (37-47); Hemoglobin 10.8 g/dl (12.0-16.0); Imm Gran Abs Auto 0.06 X10*3/uL (0.00-0.03); Imm Gran Pct Auto 0.9 % (0.0-0.4); Lymphocytes Absolute Auto 1.1 X10*3/uL (1.2-4.9); Mean Corpuscular HGB Conc 32.9 g/dl (31.0-35.0); Mean Corpuscular Hemoglobin 32.7 pg (27.0-33.0); Mean Corpuscular Volume 99.4 fL (80-98); Mean Platelet Volume 8.3 fL (9.4-12.3); Monocytes Absolute Auto 0.4 X10*3/uL (0.1-1.2); Monocytes Percent Auto 6.3 % (2-11); Neutrophils Absolute Auto 5.4 X10*3/uL (2.0-8.3); Neutrophils Percent Auto 77.4 % (45-73); Platelet Count 359 X10*3/uL (160-400); Red Cell Distribution Width 16.2 % (11.0-16.0)
[2020-05-31 11:09] LABS: Prothrombin Time 11.8 SEC (10.8-13.0)
[2020-05-31 11:12] LABS: Partial Thromboplastin Time 26.6 SEC (24.1-38.0)
[2020-05-31] MEDS: 0.9 % Sodium Chloride 1,000 ML 999 ML IVCONT (11:28)
[2020-05-31 11:32] LABS: Ethanol 293 mg/dL
--- NOTE | 2020-05-31 11:33 | PC.NURSE ---
pt yelling at this rn that she wants a peanut butter and jelly sandwich, pt educated that at this time she can't eat because of the c-collar and we need to wait till the ct results come back. pt continuos on yelling at this rn and will not let me hook the fluids up. md aware
[2020-05-31 11:35] LABS: Alanine Aminotransferase 52 U/L (0-31); Albumin Level 3.3 g/dL (3.5-5.0); Alkaline Phosphatase 79 U/L (39-117); Anion Gap 19 (12-20); Aspartate Amino Transferase 53 U/L (5-31); Bilirubin Direct 0.2 mg/dL (0.0-0.5); Bilirubin Total 0.3 mg/dL (0.0-1.0); Blood Urea Nitrogen 11 mg/dL (9-16); Calcium 8.8 mg/dL (8.4-10.2); Carbon Dioxide 23 mmol/L (22-29); Chloride 106 mmol/L (96-108); Creatinine Clr Calc Pharmacy 66.4; Estimated Glomerular Filt Rate > 60; Glucose Random 69 mg/dL (60-115); Lipase 43 U/L (8-78); Potassium 3.6 mmol/l (3.3-5.1); Sodium 144 mmol/L (135-145); Total Protein 6.3 g/dL (6.5-8.0)
[2020-05-31 11:36] LABS: Lactic Acid 2.9 mmol/L (0.5-2.0)
[2020-05-31 11:40] LABS: Magnesium 1.6 mg/dL (1.6-2.6)
--- NOTE | 2020-05-31 11:43 | PC.NURSE ---
pt rips her c-collar off and throws it down, attempting to swing at this rn, when trying to place it back. md aware, and this rn instructed to not attempt to put the c-collar back on
[2020-05-31 11:47] LABS: Troponin-I High Sensitivity 5.1 ng/L (<3.5-17.0)
[2020-05-31 12:00] LABS: Thyroid Stimulating Hormone 1.46 mIU/mL (0.32-4.0)
--- NOTE | 2020-05-31 12:15 | PC.NURSE ---
pt given a sandwich
--- NOTE | 2020-05-31 12:42 | PC.NURSE ---
attempted to clean up the pt, because pt is full of feces, pt swinging and yelling at this rn, states get the F away from by body . unable to clean her at this time.
[2020-05-31 12:54] LABS: Reflex Lactate? Lactic Acid Added
--- NOTE | 2020-05-31 16:42 | PC.NURSE ---
patient is refusing all treament. as per provider patient to be picked up by son.
== END 2020-05-31 17:29 | disposition home or self-care (01) ==
PROVIDERS: Emergency Provider Emergency Medicine
DX: F10.129 Alcohol abuse with intoxication, unspecified (principal); Y90.8 Blood alcohol level of 240 mg/100 ml or more; Z71.41 Alcohol abuse counseling and surveillance of alcoholic; Z87.891 Personal history of nicotine dependence; Z79.899 Other long term (current) drug therapy
CPT/HCPCS: 36415; 70450; 71045; 72125; 80048; 80076; 80320; 82550; 83605; 83690; 83735; 84443; 84484; 85025; 85610; 85730; 87040; 93005; 96360; 99284

== ENCOUNTER 2020-06-13 07:21 | Inpatient (IN) | payer MEDICARE, SELFPAY ==
[2020-06-13] VITALS (10 sets, daily range): BP systolic 118–145; BP diastolic 73–84; PULSE 71–115; RESP 14–23; TEMP 36.2–37.9; O2SAT 96–100; BMI 19.7
--- NOTE | 2020-06-13 07:27 | ED.CHESTPAIN ---
HPI - Chest Pain General Chief Complaint: Chest Pain Stated Complaint: CHEST PAIN Time Seen by Provider: 06/13/20 07:27 Source: patient, EMS and old records reviewed Mode of arrival: EMS Limitations: no limitations History of Present Illness MD complaint: chest pain Onset (ago): day(s) (yesterday) Timing of current episode: constant Prior episodes: No Onset: during rest and during exertion Pain location: substernal Pain radiation: none Severity: moderate Quality: aching and heaviness Relieving factors: nothing Exacerbating factors: nothing Context: recent immobilization Associated symptoms: nausea and dyspnea Treatment prior to arrival: aspirin (243) and other (ondansetron) Related Data Home Medications Medication Instructions Recorded Confirmed ascorbic acid (vitamin C) 250 mg PO DAILY 05/18/20 05/18/20 atorvastatin 40 mg PO BEDTIME 05/18/20 05/18/20 cyanocobalamin (vitamin B-12) 1 tab PO DAILY 05/18/20 05/18/20 escitalopram oxalate 5 mg PO DAILY 05/18/20 05/18/20 ferrous sulfate 325 mg PO BIDWM 05/18/20 05/18/20 fluticasone propion-salmeterol 1 puff PO Q12H 05/18/20 05/18/20 [Wixela Inhub] folic acid 1 mg PO DAILY 05/18/20 05/18/20 hydroxyzine HCl 25 mg PO DAILY PRN 05/18/20 05/18/20 loratadine 10 mg PO DAILY PRN 05/18/20 05/18/20 mesalamine 400 mg PO QID 05/18/20 05/18/20 omega-3 acid ethyl esters 1 g PO DAILY 05/18/20 05/18/20 Previous Rx's Medication Instructions Recorded dicyclomine 10 mg PO .tid prn #90 cap 05/26/20 potassium chloride 10 meq PO DAILY #14 tab 05/26/20 prednisone 5 mg PO DAILY #250 tab 05/26/20 Allergies Allergy/AdvReac Type Severity Reaction Status Date / Time strawberry [[place]] Allergy Intermediate HIVES Verified 05/18/20 10:34 Sulfa (Sulfonamide Allergy Intermediate RASH Verified 05/18/20 10:34 Antibiotics) morphine Allergy Unknown itching Verified 05/18/20 10:34 Strawberries Allergy Unknown Unknown Uncoded 05/18/20 10:34 [place] C Allergy Unknown rash Uncoded 12/07/14 00:00 Review of Systems Review of Systems: Constitutional : No Weight loss, No Fever, No Chills ENT/Mouth : No sore throat, No Rhinorrhea Eyes: No Eye Pain, No Swelling Cardiovascular : pos Chest Pain, pos SOB, no Dyspnea on Exertion, No Orthopnea, No Edema, No Palpitations Respiratory : No Cough, No Sputum Gastrointestinal : pos Nausea, No Vomiting, No Diarrhea, No abdominal Pain, No Hematochezia, No Melena Genitourinary : No Dysuria, No Urinary Frequency Musculoskeletal : No joint pain, No Myalgias, No Joint Swelling Skin : No Skin Lesions, No rash Neuro : No Weakness, No Numbness, No Dizziness, No Headache Psych : No Anxiety/Panic, No Depression Heme/Lymph: No Bruising, No Lymphadenopathy Endocrine : No Polyuria, No Polydipsia All other systems reviewed and are negative PMFSH Past Medical History Attestation statement: The following information was validated with the patient. Source: old records reviewed Medical History Alcohol abuse Anemia Anxiety CAD (coronary artery disease) Hyperlipidemia Ulcerative colitis Surgical History Hx of tubal ligation Family History Family History (Updated 05/18/20 @ 16:39 by Cj Jaramillo MD) Father Liver cancer Alcoholism Social History Social History Household Members: None Housing: House Alcohol intake: current Alcohol type: beer Smoking Status: Former smoker Second Hand Smoke Exposure: No Use of substances other than those prescribed or required for medical reasons: No Advance Directives: No Advance Directives Information Provided: Yes service: No Current occupational status: retired Physical Exam Vital Signs: Vital Signs: Last Vital Signs Temp 98.5 F 06/13/20 07:28 Pulse 71 06/13/20 12:44 Resp 18 06/13/20 12:44 BP 132/73 06/13/20 12:44 Pulse Ox 100 06/13/20 12:44 Body Mass Index 19.7 Appearance: Alert. Oriented X3. No acute distress. Eyes: Pupils equal, round and reactive to light. ENT: Pharynx normal. Neck: Normal inspection. Neck supple. CVS: Normal heart rate and rhythm. Pulses normal. Respiratory: No respiratory distress. Breath sounds normal. Abdomen: Soft and moderate epigastric ttp Skin: Skin warm and dry. Normal skin color. Normal skin turgor. Extremities: No lower extremity edema. No calf ttp Neuro: Oriented X 3. No motor deficit. No sensory deficit. Course Course Course Narrative: ddimer elevated CTA ordered for PE, IV fentanyl for pain ordered CT scans negative but LFTs concerning for ETOH - some pancreatic stranding on CT scan noted lipase normal, repeat IV pain medications will admit for pancreatitis Procedures EJ/Peripheral Line Arm R: Time Out Performed: Yes Skin Cleansed in Sterile Fashion: Yes Size (gauge): 20 IV Secured and Dressing Applied: Yes Patient Tolerated Procedure: well and no complications Additional Comments: US procedure MDM - Chest Pain MDM Narrative Medical decision making narrative: 69 yo female with hx of UC, ETOH, CAD here wtih chest pain and epigastric pain since yesterday her upper abdomen has ttp no rebound or guarding at this time will need labs, troponin ddimer, CXR, IVF, possible CTA if ddimer positive, CT scan of abdomen for pancreatitis dispo per results and findings. Lab Data Result diagrams: 06/13/20 12:43 06/13/20 Unknown Labs: Lab Results 06/13/20 06/13/20 06/13/20 Range/Units 10:10 10:10 12:43 WBC 5.8 (4.8-10.8) X10*3/uL RBC 2.23 L D (4.20-5.50) X10*6/uL Hgb 7.6 L D (12.0-16.0) g/dl Hct 22.7 L D (37-47) % MCV 101.8 H (80-98) fL MCH 34.1 H (27.0-33.0) pg MCHC 33.5 (31.0-35.0) g/dl RDW 19.4 H (11.0-16.0) % Plt Count 306 (160-400) X10*3/uL MPV 9.2 L (9.4-12.3) fL Immature Gran % (Auto) Cancelled Neut % (Auto) Cancelled Lymph % (Auto) Cancelled [place] % (Auto) Cancelled Eos % (Auto) Cancelled Baso % (Auto) Cancelled Lymph # (Auto) Cancelled [place] # (Auto) Cancelled Eos # (Auto) Cancelled Baso # (Auto) Cancelled Abs Immat Gran (auto) Cancelled Absolute Neuts (auto) Cancelled Absolute Nucleated RBC 0.000 (0.0-0.012) X10*3/uL Nucleated RBC % (auto) 0.0 (0.0-0.2) /100WBC PT TNP INR TNP APTT TNP D-Dimer NG/ML Sodium (135-145) mmol/L Potassium (3.3-5.1) mmol/l Chloride (96-108) mmol/L Carbon Dioxide (22-29) mmol/L Anion Gap (12-20) BUN (9-16) mg/dL Creatinine (0.5-1.4) mg/dL Estim Creat Clear Calc Estimated GFR Random Glucose (60-115) mg/dL Calcium (8.4-10.2) mg/dL Magnesium (1.6-2.6) mg/dL Total Bilirubin (0.0-1.0) mg/dL Direct Bilirubin (0.0-0.5) mg/dL AST (5-31) U/L ALT (0-31) U/L Alkaline Phosphatase (39-117) U/L Troponin I High Sens (<3.5-17.0) ng/L B-Natriuretic Peptide (<100) pg/mL Total Protein (6.5-8.0) g/dL Albumin (3.5-5.0) g/dL Lipase (8-78) U/L Ethyl Alcohol < 10 mg/dL 06/13/20 06/13/20 06/13/20 Range/Units 12:43 Unknown Unknown WBC (4.8-10.8) X10*3/uL RBC (4.20-5.50) X10*6/uL Hgb (12.0-16.0) g/dl Hct (37-47) % MCV (80-98) fL MCH (27.0-33.0) pg MCHC (31.0-35.0) g/dl RDW (11.0-16.0) % Plt Count (160-400) X10*3/uL MPV (9.4-12.3) fL Immature Gran % (Auto) Neut % (Auto) Lymph % (Auto) [place] % (Auto) Eos % (Auto) Baso % (Auto) Lymph # (Auto) [place] # (Auto) Eos # (Auto) Baso # (Auto) Abs Immat Gran (auto) Absolute Neuts (auto) Absolute Nucleated RBC (0.0-0.012) X10*3/uL Nucleated RBC % (auto) (0.0-0.2) /100WBC PT 14.2 H D INR 1.2 H APTT 25.8 D-Dimer 801 NG/ML Sodium 136 (135-145) mmol/L Potassium 3.3 (3.3-5.1) mmol/l Chloride 105 (96-108) mmol/L Carbon Dioxide 21 L (22-29) mmol/L Anion Gap 13 (12-20) BUN 10 (9-16) mg/dL Creatinine 0.51 (0.5-1.4) mg/dL Estim Creat Clear Calc 82.6 Estimated GFR > 60 Random Glucose 70 (60-115) mg/dL Calcium 6.9 L D (8.4-10.2) mg/dL Magnesium 1.3 L* (1.6-2.6) mg/dL Total Bilirubin 1.5 H (0.0-1.0) mg/dL Direct Bilirubin 1.0 H (0.0-0.5) mg/dL AST 87 H (5-31) U/L ALT 284 H (0-31) U/L Alkaline Phosphatase 235 H D (39-117) U/L Troponin I High Sens < 3.5 (<3.5-17.0) ng/L B-Natriuretic Peptide 83 (<100) pg/mL Total Protein 5.1 L (6.5-8.0) g/dL Albumin 2.3 L D (3.5-5.0) g/dL Lipase 26 (8-78) U/L Ethyl Alcohol mg/dL //20 Range/Units Unknown WBC (4.8-10.8) X10*3/uL RBC (4.20-5.50) X10*6/uL Hgb (12.0-16.0) g/dl Hct (37-47) % MCV (80-98) fL MCH (27.0-33.0) pg MCHC (31.0-35.0) g/dl RDW (11.0-16.0) % Plt Count (160-400) X10*3/uL MPV (9.4-12.3) fL Immature Gran % (Auto) Neut % (Auto) Lymph % (Auto) [place] % (Auto) Eos % (Auto) Baso % (Auto) Lymph # (Auto) [place] # (Auto) Eos # (Auto) Baso # (Auto) Abs Immat Gran (auto) Absolute Neuts (auto) Absolute Nucleated RBC (0.0-0.012) X10*3/uL Nucleated RBC % (auto) (0.0-0.2) /100WBC PT INR APTT D-Dimer NG/ML Sodium (135-145) mmol/L Potassium (3.3-5.1) mmol/l Chloride (96-108) mmol/L Carbon Dioxide (22-29) mmol/L Anion Gap (12-20) BUN (9-16) mg/dL Creatinine (0.5-1.4) mg/dL Estim Creat Clear Calc Estimated GFR Random Glucose (60-115) mg/dL Calcium (8.4-10.2) mg/dL Magnesium (1.6-2.6) mg/dL Total Bilirubin (0.0-1.0) mg/dL Direct Bilirubin (0.0-0.5) mg/dL AST (5-31) U/L ALT (0-31) U/L Alkaline Phosphatase (39-117) U/L Troponin I High Sens Cancelled (<3.5-17.0) ng/L B-Natriuretic Peptide (<100) pg/mL Total Protein (6.5-8.0) g/dL Albumin (3.5-5.0) g/dL Lipase (8-78) U/L Ethyl Alcohol mg/dL ECG Data ECG #1: Attestation: I personally reviewed and interpreted this ECG as follows: ECG interpretation date: 06/13/20 ECG interpretation time: 07:44 Interpretation: Rate: 89 Rhythm: NSR [place]: left Normal P waves. Normal MIKI. Normal QRS complex. ST T wave : normal qTC: normal prior studies: no acute ischemia The study has been interpreted contemporaneously by me. . Discharge Plan Discharge Clinical Impression: Anemia, Abnormal LFTs, Acute pancreatitis, Hypomagnesemia Patient Disposition: Admitted As Inpatient
--- NOTE | 2020-06-13 07:28 | ECG_ITS ---
Test Reason : CHEST PAIN Blood Pressure : / mmHG Vent. Rate : 089 BPM Atrial Rate : 089 BPM P-R Int : 110 ms QRS Dur : 066 ms QT Int : 376 ms P-R-T Axes : 007 -12 039 degrees QTc Int : 457 ms Sinus rhythm with short PA with Premature supraventricular complexes Low voltage QRS Nonspecific T wave abnormality Abnormal ECG When compared with ECG of 31-MAY-2020 10:55, Premature supraventricular complexes are now Present Referred By: Alina Neal Electronically Signed By:BHUPINDER WILSON MD
--- NOTE | 2020-06-13 07:28 | XR_ITS ---
EXAMINATION: XR CHEST CLINICAL INFORMATION: Pain COMPARISON: Previous chest x-ray 05/31/2020 TECHNIQUE: Frontal view of the chest was obtained. FINDINGS: The cardiac and mediastinal contours are stable. There is atelectasis or small infiltrate at the left lung base. The lungs are otherwise clear. There is no pleural effusion or pneumothorax. There are degenerative changes of the spine. There are old left-sided rib fractures. XR/XR chest 1V IMPRESSION: Atelectasis or small infiltrate at the left lung base.
[2020-06-13] MEDS: 0.9 % Sodium Chloride 500 ML IV (08:00)
--- NOTE | 2020-06-13 09:20 | PC.NURSE ---
pt resting in the stretcher, ns on the monitor. reports having midsernal pain and requesting pain pill. phlebotomy called to get bloods pt very difficult stick vs stable
[2020-06-13 09:42] LABS: D Dimer 801 NG/ML
--- NOTE | 2020-06-13 09:45 | CT_ITS ---
EXAMINATION: CT ANGIOGRAM OF THE CHEST WITH AND WITHOUT CONTRAST (CT PULMONARY ANGIOGRAM FOR PE) CT ABDOMEN AND PELVIS WITH CONTRAST CLINICAL INFORMATION: Upper abdominal pain. Elevated LFTs. COMPARISON: 03/22/2020 and 05/21/2020 TECHNIQUE: Prior to contrast administration, noncontrast localization images were obtained. Subsequently, multidetector volumetric imaging was performed from the thoracic inlet to below the diaphragms following the administration of 65 mL Omnipaque 350 intravenous contrast. This was followed by multidetector acquisition of the abdomen and pelvis. No contrast reaction reported Sagittal, coronal, and MIP oblique sagittal reformatted images were obtained on the CT workstation, uploaded to PACS, and reviewed. This CT examination was performed using dose optimization techniques as appropriate, variously including the following: *Automated exposure control *Adjustment of mA and/or kV according to patient size (this includes techniques or standardized protocols for targeted exams where dose is matched to indication/reason for exam; i.e. extremities or head) *Use of iterative reconstruction technique Total exam dose-length product 445 mGy-cm FINDINGS: QUALITY OF STUDY/CONTRAST BOLUS: Satisfactory. PULMONARY ARTERIES: No central or segmental pulmonary emboli. THORACIC AORTA: No aneurysm or dissection. LUNG: The central airways are patent. Mild centrilobular emphysema. The previous pleural effusions have resolved. No pneumothorax. No dense consolidation. No suspicious pulmonary nodules. MEDIASTINUM: Normal heart size. There is a trace pericardial effusion which is new from prior. No mediastinal lymphadenopathy. No evidence of septal bowing or right heart strain. CHEST WALL/AXILLA: No axillary or internal mammary lymphadenopathy. LIVER, GALLBLADDER, AND BILIARY TREE: The liver is normal in size, shape, and attenuation. No focal hepatic lesion or biliary ductal dilatation is present. Trace perihepatic ascites is similar to prior. The gallbladder is contracted with no gross abnormality at the current time. PANCREAS: Pancreatic parenchyma is homogenous. Mild stranding is seen in the fat near the pancreatic head/neck. SPLEEN: Normal size. Mild perisplenic ascites. Peripheral wedge-shaped appearance is unchanged. ADRENAL GLANDS: Unremarkable. KIDNEYS AND URETERS: The kidneys are normal in size, shape, and attenuation. No hydronephrosis, hydroureter, or calculi seen. No perinephric stranding. Area of cortical hypoattenuation at the posterior midpole of the right kidney is unchanged. BLADDER: Unremarkable. GASTROINTESTINAL TRACT: The stomach is unremarkable. The small bowel is normal in caliber. There is no obstruction. Somewhat fluid-filled appearance of the jejunum. There is mild diffuse colonic wall thickening. Mild inflammation of the adjacent fat. This is similar in appearance to the previous study. No free air. Small volume ascites. ABDOMINAL WALL: No significant hernia is appreciated. LYMPH NODES: Normal. VASCULAR: Normal caliber aorta with mild atherosclerotic calcification. PELVIC VISCERA: The uterus is unremarkable. Unchanged right adnexal cyst OSSEOUS STRUCTURES: No acute or suspicious osseous abnormality. Multilevel degenerative changes of the spine. CT/CT angio chest PE protocol IMPRESSION: 1. No pulmonary embolism. 2. Mild emphysema. No acute findings in the lungs. There is a new trace pericardial effusion. 3. Small volume ascites. Diffuse mild wall thickening of the colon, consistent with the patient's history of ulcerative colitis. VTE: negative
[2020-06-13] MEDS: fentaNYL citrate/PF 100 MCG/2 ML VIAL 25 MCG IVPUSH (09:57)
[2020-06-13 10:29] LABS: Alanine Aminotransferase 284 U/L (0-31); Albumin Level 2.3 g/dL (3.5-5.0); Alkaline Phosphatase 235 U/L (39-117); Anion Gap 13 (12-20); Aspartate Amino Transferase 87 U/L (5-31); Bilirubin Total 1.5 mg/dL (0.0-1.0); Blood Urea Nitrogen 10 mg/dL (9-16); Carbon Dioxide 21 mmol/L (22-29); Chloride 105 mmol/L (96-108); Creatinine Clr Calc Pharmacy 82.6; Estimated Glomerular Filt Rate > 60; Glucose Random 70 mg/dL (60-115); Lipase 26 U/L (8-78); Potassium 3.3 mmol/l (3.3-5.1); Sodium 136 mmol/L (135-145); Total Protein 5.1 g/dL (6.5-8.0)
[2020-06-13 10:41] LABS: Ethanol < 10 mg/dL
[2020-06-13 10:44] LABS: Calcium 6.9 mg/dL (8.4-10.2); Magnesium 1.3 mg/dL (1.6-2.6)
[2020-06-13 11:25] LABS: INTERNATIONAL NORM RATIO 1.2 (0.9-1.1); Prothrombin Time 14.2 SEC (10.8-13.0)
[2020-06-13 11:29] LABS: Partial Thromboplastin Time 25.8 SEC (24.1-38.0)
--- NOTE | 2020-06-13 12:09 | PC.NURSE ---
Pt to CT at this time
[2020-06-13] MEDS: iohexoL 350 MG/ML 100 ML INFUS..BTL IV (12:28)
--- NOTE | 2020-06-13 12:45 | PC.NURSE ---
pT W/ 20G IV TO LEFT FOREARM FROM EMS, LINE INFILTRATED W/ FLUSH AFTER CTA PER CT STAFF. Site is red w/ some swelling. IV removed. New IV placed by Dr Neal w/ ultrasound
[2020-06-13] MEDS: Magnesium Sulfate/H2O 2 GM/50 ML PIGGYBACK IV (12:57)
[2020-06-13 13:24] LABS: Hematocrit 22.7 % (37-47); Mean Corpuscular HGB Conc 33.5 g/dl (31.0-35.0); Mean Corpuscular Hemoglobin 34.1 pg (27.0-33.0); Mean Corpuscular Volume 101.8 fL (80-98); Mean Platelet Volume 9.2 fL (9.4-12.3); Platelet Count 306 X10*3/uL (160-400); Red Blood Count 2.23 X10*6/uL (4.20-5.50); Red Cell Distribution Width 19.4 % (11.0-16.0); White Blood Count 5.8 X10*3/uL (4.8-10.8)
[2020-06-13 13:39] LABS: B Type Natriuretic Peptide 83 pg/mL (<100); Hemoglobin 7.6 g/dl (12.0-16.0); Troponin-I High Sensitivity < 3.5 ng/L (<3.5-17.0)
[2020-06-13] MEDS: HYDROmorphone HCl 0.5 MG/0.5 ML SYRINGE IVPUSH (14:22)
[2020-06-13 14:48] LABS: Band Neutrophils Percent 6 % (3-5); Lymphocytes Absolute Manual 0.9 X10*3/uL (0.6-4.8); Lymphocytes Percent Manual 15 % (20-40); Monocytes Absolute Manual 0.3 X10*3/uL (0.0-1.2); Monocytes Percent Manual 5 % (2-11); Neutrophils Absolute Manual 4.6 X10*3/uL (2.2-7.9); Neutrophils Percent Manual 74 % (45-73)
[2020-06-13 14:49] LABS: Hypochromasia 1+; Macrocytosis 1+; RBC Morphology NOTED
[2020-06-13 14:50] LABS: Platelet Estimate NORMAL (NORMAL); Platelet Morphology Comment NORMAL
--- NOTE | 2020-06-13 15:12 | P.HPHOSP_ITS ---
History of Present Illness Date of Service: 06/13/20 <Liberty Carlson NP - Last Filed: 06/13/20 15:55> Chief Complaint: Abdominal pain <Liberty Carlson NP - Last Filed: 06/13/20 15:55> 69 year old women presenting with left upper quadrant abdominal pain with some associated nausea. She has a history of Ulcerative colitis with occassional red blood per rectum but large amounts recently. She started having substernal pain that started yesterday however, during the interview and examination her pain was to the left upper quadrant. She reports that she was a heavy drinker but stopped drinking hard liquor a few months ago. her last drink of beer was 3 weeks ago and she reported that she drinks 3-4 beers daily. in the ER, she was noted to be anemic with hemoglobin of 7.6 and hematocrit 22.7 , INR 1.2, magnesium 1.3, total bilirubin 1.5, direct bili Fernandez 1.0, AST 87, ALT 284, alk- phos 235, lipase 26. D-dimer was elevated [address] was obtained which was negative for any VTE. Abdominal CT showed small volume ascites with diffuse mild wall thickening of the colon consistent with history of ulcerative colitis. Pancreas showed some mild stranding. She was noted to have fever delicia kocytosis. Her vital signs are stable. To be admitted for further management and treatment of pancreatitis and possible ulcerative colitis flare. <Liberty Carlson NP - Last Filed: 06/13/20 15:55> Review of Systems Review of Systems: Denies any recent fever chills or decrease in appetite respiratory denies any shortness of breath coverage production cardiovascular is adjustment of any PND or edema gastrointestinal denies any dysphagia abdominal pain nausea vomiting or john rrhea genitourinary denies any dysuria frequency or hematuria musculoskeletal denies any joint pain or swelling neuropsych denies any weakness or seizures all other systems reviewed are negative <Liberty Carlson NP - Last Filed: 06/13/20 15:55> REPLACED BY [facility] Medical History: Medical History Alcohol abuse Anemia Anxiety CAD (coronary artery disease) Hyperlipidemia Ulcerative colitis <Liberty Carlson NP - Last Filed: 06/13/20 15:55> Family History: Family History (Updated 05/18/20 @ 16:39 by Cj Jaramillo MD) Father Liver cancer Alcoholism <Liberty Carlson NP - Last Filed: 06/13/20 15:55> Surgical History: Surgical History Hx of tubal ligation <Liberty Carlson NP - Last Filed: 06/13/20 15:55> Social History: Social History Household Members: None Housing: House Alcohol intake: current Alcohol type: beer Smoking Status: Former smoker Second Hand Smoke Exposure: No Use of substances other than those prescribed or required for medical reasons: No Currently Displaying Signs/Symptoms of Drug Intoxication Withdrawal: No Have you been hit, kicked, punched, or otherwise hurt by someone within the past year? If so, by whom?: No Do you feel safe in your current relationship?: No Current Relationship Is there a partner from a previous relationship who is making you feel unsafe now?: No Are you made to feel afraid or neglected: No Advance Directives: No Advance Directives Information Provided: Yes Do you have thoughts of harming others: None Do you have a plan to hurt others: No Plan Recently lost weight without trying: Unsure service: No Current occupational status: retired <Liberty Carlson NP - Last Filed: 06/13/20 15:55> Meds Allergies/Adverse reactions: Allergies Allergy/AdvReac Type Severity Reaction Status Date / Time strawberry [Shelby] Allergy Intermediate HIVES Verified 05/18/20 10:34 Sulfa (Sulfonamide Allergy Intermediate RASH Verified 05/18/20 10:34 Antibiotics) morphine Allergy Unknown itching Verified 05/18/20 10:34 Strawberries Allergy Unknown Unknown Uncoded 05/18/20 10:34 Shelby C Allergy Unknown rash Uncoded 12/07/14 00:00 <Liberty Carlson NP - Last Filed: 06/13/20 15:55> Home medications: Home Medications Medication Instructions Recorded Confirmed Type ascorbic acid (vitamin C) 250 mg PO DAILY 05/18/20 06/13/20 History atorvastatin 40 mg PO BEDTIME 05/18/20 06/13/20 History cyanocobalamin (vitamin B-12) 1 tab PO DAILY 05/18/20 06/13/20 History escitalopram oxalate 5 mg PO DAILY 05/18/20 06/13/20 History ferrous sulfate 325 mg PO BIDWM 05/18/20 06/13/20 History fluticasone propion-salmeterol 1 puff PO Q12H 05/18/20 06/13/20 History [Wixela Inhub] folic acid 1 mg PO DAILY 05/18/20 06/13/20 History hydroxyzine HCl 25 mg PO DAILY PRN 05/18/20 06/13/20 History loratadine 10 mg PO DAILY PRN 05/18/20 06/13/20 History mesalamine 400 mg PO QID 05/18/20 06/13/20 History omega-3 acid ethyl esters 1 cap PO DAILY 05/18/20 06/13/20 History dicyclomine 10 mg PO TID PRN 06/13/20 06/13/20 History <Liberty Carlson NP - Last Filed: 06/13/20 15:55> Physical Exam Vital Signs and Narrative: Vital Signs: Last Vital Signs Temp 98.5 F 06/13/20 07:28 Pulse 95 06/13/20 14:21 Resp 14 06/13/20 14:21 BP 136/75 06/13/20 14:21 Pulse Ox 98 06/13/20 14:21 Body Mass Index 19.7 <Liberty Carlson NP - Last Filed: 06/13/20 15:55> Appearing in no acute distress head is normocephalic atraumatic eyes pupils are PERRLA sclera is anicteric mouth throat mucous membranes are intact and moist neck is supple no lymphadenopathy, no JVD noted lung sounds are clear to auscultation heart regular rate rhythm, clear S1, S2 positive bowel sounds, abdomen is soft,Tender throughout mostly to LUQ neuro patient is alert x3, no focal deficits <Liberty Carlson NP - Last Filed: 06/13/20 15:55> Results Labs CBC and Chem 7: : 06/15/20 05:59 06/16/20 12:28 <Liberty Carlson NP - Last Filed: 06/13/20 15:55> Labs: Laboratory Results - last 24 hr 06/13/20 06/13/20 06/13/20 10:10 10:10 12:43 MCV 101.8 H MCH 34.1 H MCHC 33.5 RDW 19.4 H Plt Count 306 MPV 9.2 L Immature Gran % (Auto) Cancelled Neut % (Auto) Cancelled Lymph % (Auto) Cancelled [place] % (Auto) Cancelled Eos % (Auto) Cancelled Baso % (Auto) Cancelled Lymph # (Auto) Cancelled [place] # (Auto) Cancelled Eos # (Auto) Cancelled Baso # (Auto) Cancelled Abs Immat Gran (auto) Cancelled Absolute Neuts (auto) Cancelled Absolute Nucleated RBC 0.000 Nucleated RBC % (auto) 0.0 Neutrophils % (Manual) 74 H Band Neutrophils % 6 H Lymphocytes % (Manual) 15 L Monocytes % (Manual) 5 Abs Neuts (Manual) 4.6 Lymphocytes # (Manual) 0.9 Monocytes # (Manual) 0.3 Platelet Estimate NORMAL Plt Morphology Comment NORMAL RBC Morphology NOTED Hypochromasia 1+ Macrocytosis 1+ PT TNP INR TNP APTT TNP D-Dimer Anion Gap Estim Creat Clear Calc Estimated GFR Random Glucose Calcium Magnesium Total Bilirubin Direct Bilirubin AST ALT Alkaline Phosphatase Troponin I High Sens B-Natriuretic Peptide Total Protein Albumin Lipase Ethyl Alcohol < 10 Crossmatch 06/13/20 06/13/20 06/13/20 12:43 14:55 Unknown MCV MCH MCHC RDW Plt Count MPV Immature Gran % (Auto) Neut % (Auto) Lymph % (Auto) [place] % (Auto) Eos % (Auto) Baso % (Auto) Lymph # (Auto) [place] # (Auto) Eos # (Auto) Baso # (Auto) Abs Immat Gran (auto) Absolute Neuts (auto) Absolute Nucleated RBC Nucleated RBC % (auto) Neutrophils % (Manual) Band Neutrophils % Lymphocytes % (Manual) Monocytes % (Manual) Abs Neuts (Manual) Lymphocytes # (Manual) Monocytes # (Manual) Platelet Estimate Plt Morphology Comment RBC Morphology Hypochromasia Macrocytosis PT 14.2 H D INR 1.2 H APTT 25.8 D-Dimer 801 Anion Gap Estim Creat Clear Calc Estimated GFR Random Glucose Calcium Magnesium Total Bilirubin Direct Bilirubin AST ALT Alkaline Phosphatase Troponin I High Sens < 3.5 B-Natriuretic Peptide 83 Total Protein Albumin Lipase Ethyl Alcohol Crossmatch See Detail 06/13/20 06/13/20 Unknown Unknown MCV MCH MCHC RDW Plt Count MPV Immature Gran % (Auto) Neut % (Auto) Lymph % (Auto) [place] % (Auto) Eos % (Auto) Baso % (Auto) Lymph # (Auto) [place] # (Auto) Eos # (Auto) Baso # (Auto) Abs Immat Gran (auto) Absolute Neuts (auto) Absolute Nucleated RBC Nucleated RBC % (auto) Neutrophils % (Manual) Band Neutrophils % Lymphocytes % (Manual) Monocytes % (Manual) Abs Neuts (Manual) Lymphocytes # (Manual) Monocytes # (Manual) Platelet Estimate Plt Morphology Comment RBC Morphology Hypochromasia Macrocytosis PT INR APTT D-Dimer Anion Gap 13 Estim Creat Clear Calc 82.6 Estimated GFR > 60 Random Glucose 70 Calcium 6.9 L D Magnesium 1.3 L* Total Bilirubin 1.5 H Direct Bilirubin 1.0 H AST 87 H ALT 284 H Alkaline Phosphatase 235 H D Troponin I High Sens Cancelled B-Natriuretic Peptide Total Protein 5.1 L Albumin 2.3 L D Lipase 26 Ethyl Alcohol Crossmatch <Liberty Carlson NP - Last Filed: 06/13/20 15:55> Imaging Radiologist's Impressions: Impressions Chest X-Ray 06/13/20 07:28 IMPRESSION: Atelectasis or small infiltrate at the left lung base. Chest CTA 06/13/20 09:45 IMPRESSION: 1. No pulmonary embolism. 2. Mild emphysema. No acute findings in the lungs. There is a new trace pericardial effusion. 3. Small volume ascites. Diffuse mild wall thickening of the colon, consistent with the patient's history of ulcerative colitis. VTE: negative Abdomen/Pelvis CT 06/13/20 10:39 IMPRESSION: 1. No pulmonary embolism. 2. Mild emphysema. No acute findings in the lungs. There is a new trace pericardial effusion. 3. Small volume ascites. Diffuse mild wall thickening of the colon, consistent with the patient's history of ulcerative colitis. VTE: negative <Liberty Carlson NP - Last Filed: 06/13/20 15:55> Assessment and Plan (1) Acute pancreatitis: Qualifiers: Acute pancreatitis complication: unspecified Pancreatitis type: alcohol induced Qualified Code(s): K85.20 - Alcohol induced acute pancreatitis without necrosis or infection <Liberty Carlson NP - Last Filed: 06/13/20 15:55> (2) Ulcerative colitis: Status: Acute <Liberty Carlson NP - Last Filed: 06/13/20 15:55> 69 year old women admitted with pancreatitis and possible UC flare. Pancreatitis. Aggressive IV fluid hydration, clear liquids for now. Related to Alcohol abuse. Ulcerative colitis. No excessive bleeding noted by patient. Hold off on steroids in light of anemia, discuss with GI. Anemia. Will transfuse 2 units PRBC, Follow HH. No overt bleeding. PPI. Transaminitis. Likely from alcohol use. No cirrhosis on recent abdominal CT. Follow LFT's. Coagulaopathy. Likely from alcoholic liver disease. Follow. Alcohol abuse. Reported that she quit drinking 3 weeks ago. DVT prophylaxis with Mechanical compression boots. Discussed with Dr. Brown Full code <Liberty Carlson CLAY HOISTER - Last Filed: 06/13/20 15:55>
[2020-06-13 15:16] LABS: Glucose Urine UA NEG (NEG); Leukocyte Esterase Urine NEG (NEG); Nitrite Urine NEG (NEG); PH 5.5 (5.0-8.0); Specific Gravity - Urine 1.015 (1.005-1.025); Urine Blood TRACE (NEG); Urine Ketones NEG (NEG); Urine Protein NEG (NEG-TRACE)
[2020-06-13 15:17] LABS: Appearance Urine CLEAR; Color Urine YELLOW
[2020-06-13 15:23] LABS: Partial Thromboplastin Time 30.6 SEC (24.1-38.0); RBC Urine 0-2 /HPF (0); Squamous Epithelial Cell Urine 1+ /LPF; WBC Urine 0 /HPF (0-4)
[2020-06-13 15:28] LABS: INTERNATIONAL NORM RATIO 1.3 (0.9-1.1); Prothrombin Time 15.2 SEC (10.8-13.0)
[2020-06-13 16:02] LABS: COVID-19 Test Negative (Negative)
--- NOTE | 2020-06-13 17:24 | PM.EVENT ---
Event Note Date of Service: 06/14/20 Event Note: ? crohn flare ,Gi bleed ,? acute pancreatitis Patient says that she is having abdominal pain for few days also feeling nauseated. Denies any chest pain or shortness of breath or any urinary complaints. Patient says that she has on and off some bleeding in the stool question related to her ulcerative colitis. Denies any fever or chills Physical exam: Cvs: rrr, [id number] , no murmur res: clear to auscultation ,no rales or wheezing abd:has diffuse abd pain otherwise abd is soft , no rebound or guarding ,bs present. ext pulses present , no cyanosis neuro: axo3 , nonfocal. Assessment and plan: ? Ulcerative colitis flare/GI bleed/anemia acute blood loss: Patient already seen by ED and 2 PRBCs ordered Will continue gentle hydration since patient had low p.o. intake last few days FOBT In addition CT abdomen shows changes of ulcerative colitis, also question of acute pancreatitis, even though patient is saying that she did not drink alcohol for 1-2 weeks Will continue bowel rest moniter h/h closely continue mesalamine , add ppi Elevated LFTs: Question multifactorial: Alcohol use, question underlying liver disease GI evaluation pending hypo magnesium and hypokalemia was present-will replete.
[2020-06-13] MEDS: Furosemide 20 MG/2 ML VIAL IVPUSH (21:56)
[2020-06-13 22:33] LABS: Hematocrit 29.4 % (37-47); Hemoglobin 10.4 g/dl (12.0-16.0)
[2020-06-13] MEDS: Potassium Chloride/H20 10 MEQ/100 ML PIGGYBACK 100 MEQ IV (22:48)
[2020-06-13] MEDS: Mesalamine 400 MG CAP.DRTAB. PO (22:53)
[2020-06-13] MEDS: Magnesium Sulfate/D5W 1 GM/100 ML PIGGYBACK IV (22:53)
[2020-06-13] MEDS: Atorvastatin Calcium 40 MG TABLET PO (22:54)
[2020-06-13] MEDS: Pantoprazole Sodium 40 MG/10 ML VIAL IVPUSH (22:54)
[2020-06-14] VITALS (10 sets, daily range): BP systolic 104–149; BP diastolic 72–94; PULSE 74–102; RESP 16–20; TEMP 36.4–37.6; O2SAT 94–99
[2020-06-14] MEDS: 0.9 % Sodium Chloride 1,000 ML 80 ML IVCONT ×2 (02:44→10:51)
[2020-06-14 06:38] LABS: MANUAL DIFF FLAG NO
[2020-06-14 06:51] LABS: INTERNATIONAL NORM RATIO 1.3 (0.9-1.1); Prothrombin Time 15.6 SEC (10.8-13.0)
[2020-06-14 06:57] LABS: Basophils Percent Auto 0.1 % (0-2); Eosinophils Absolute Auto 0.1 X10*3/uL (0.0-0.4); Eosinophils Percent Auto 0.7 % (0-4); Hematocrit 35.4 % (37-47); Hemoglobin 12.2 g/dl (12.0-16.0); Imm Gran Abs Auto 0.06 X10*3/uL (0.00-0.03); Imm Gran Pct Auto 0.9 % (0.0-0.4); Lymphocytes Absolute Auto 0.9 X10*3/uL (1.2-4.9); Lymphocytes Percent Auto 12.3 % (20-40); Mean Corpuscular HGB Conc 34.5 g/dl (31.0-35.0); Mean Corpuscular Hemoglobin 31.7 pg (27.0-33.0); Mean Corpuscular Volume 91.9 fL (80-98); Mean Platelet Volume 9.4 fL (9.4-12.3); Monocytes Absolute Auto 0.4 X10*3/uL (0.1-1.2); Monocytes Percent Auto 6.2 % (2-11); Neutrophils Absolute Auto 5.6 X10*3/uL (2.0-8.3); Neutrophils Percent Auto 79.8 % (45-73); Platelet Count 262 X10*3/uL (160-400); Red Blood Count 3.85 X10*6/uL (4.20-5.50); Red Cell Distribution Width 18.3 % (11.0-16.0); White Blood Count 7.1 X10*3/uL (4.8-10.8)
[2020-06-14 07:11] LABS: Magnesium 1.7 mg/dL (1.6-2.6)
[2020-06-14 07:23] LABS: Alanine Aminotransferase 201 U/L (0-31); Albumin Level 2.3 g/dL (3.5-5.0); Alkaline Phosphatase 191 U/L (39-117); Anion Gap 11 (12-20); Aspartate Amino Transferase 50 U/L (5-31); Bilirubin Direct 1.9 mg/dL (0.0-0.5); Blood Urea Nitrogen 6 mg/dL (9-16); Calcium 6.4 mg/dL (8.4-10.2); Carbon Dioxide 26 mmol/L (22-29); Chloride 100 mmol/L (96-108); Creatinine Clr Calc Pharmacy 85.9; Estimated Glomerular Filt Rate > 60; Glucose Random 73 mg/dL (60-115); Potassium 2.8 mmol/l (3.3-5.1); Sodium 134 mmol/L (135-145); Total Protein 4.9 g/dL (6.5-8.0)
--- NOTE | 2020-06-14 08:18 | P.CDIC_ITS ---
CDI Concurrent Query Service Date: 06/14/20 Documentation Clarification: Please clarify if you are treating a proba ble/suspected/likely or confirmed: Hypokalemia-present Please specify if known Provider Response: Other Other Diagnosis: hypokalemia present. PLEASE DO NOT DELETE/MODIFY EXISTING CONTENT Additional information is needed in order to code to the highest accuracy and appropriate Severity of Illness (SOI). Please clarify the information noted below in your progress notes and discharge summary. Risk Factors/Clinical Indicators/Treatments Labs: Potassium 2.8 L IV Potassium Chloride Alcohol use CDS: Tamar Garcia CCS, CDIS Contact Number: [phone] Please Review the information above and exercise your independent professional judgment in responding to the query. If you concur, pleas document in the PROGRESS NOTES and DISCHARGE SUMMARY. If you do not agree with the query, please document in the query above. THIS QUERY IS PART OF THE PERMANENT MEDICAL RECORD
--- NOTE | 2020-06-14 08:22 | P.CDIC_ITS ---
CDI Concurrent Query Service Date: 06/14/20 Documentation Clarification: Please clarify if you are treating a proba ble/suspected/likely or confirmed: Underweight- not present . Protein calorie malnutrition, mild, moderate or severe Please specify if known or other Provider Response: Other Other Diagnosis: not underweight. PLEASE DO NOT DELETE/MODIFY EXISTING CONTENT Additional information is needed in order to code to the highest accuracy and appropriate Severity of Illness (SOI). Please clarify the information noted below in your progress notes and discharge summary. Risk Factors/Clinical Indicators/Treatments BMI 19.1 Total protein 4.9 Albumin 2.3 CDS: Tamar Garcia CCS, CDIS Contact Number: [phone] Please Review the information above and exercise your independent professional judgment in responding to the query. If you concur, pleas document in the PROGRESS NOTES and DISCHARGE SUMMARY. If you do not agree with the query, please document in the query above. THIS QUERY IS PART OF THE PERMANENT MEDICAL RECORD
[2020-06-14] MEDS: Cyanocobalamin (Vitamin B-12) 1,000 MCG TABLET 1000 MCG PO (08:24)
[2020-06-14] MEDS: Pantoprazole Sodium 40 MG/10 ML VIAL IVPUSH ×2 (08:24→20:43)
[2020-06-14] MEDS: 0.9 % Sodium Chloride Flush 3 ML SYRINGE IVFLUSH ×2 (08:24→15:43)
[2020-06-14] MEDS: Mesalamine 400 MG CAP.DRTAB. PO ×3 (08:24→16:46)
[2020-06-14] MEDS: Folic Acid 1 MG TABLET PO (08:24)
[2020-06-14] MEDS: Escitalopram Oxalate 5 MG TABLET PO (08:24)
[2020-06-14] MEDS: Potassium Chloride Packet 20 MEQ PACKET 40 MEQ PO (09:23)
[2020-06-14] MEDS: Magnesium Sulfate/D5W 1 GM/100 ML PIGGYBACK IV (09:24)
--- NOTE | 2020-06-14 09:58 | MHC.CM.PN ---
met with pt who reports living alone and carl Cabrera rn visits daily thru [facility] and homemaker daily visit thru [facility] pt has a lock box pt says her son will drive her home when dcd
[2020-06-14 10:14] LABS: Anion Gap 13 (12-20); Blood Urea Nitrogen 7 mg/dL (9-16); Calcium 6.5 mg/dL (8.4-10.2); Carbon Dioxide 22 mmol/L (22-29); Chloride 102 mmol/L (96-108); Creatinine Clr Calc Pharmacy 84.2; Estimated Glomerular Filt Rate > 60; Glucose Random 92 mg/dL (60-115); Potassium 3.2 mmol/l (3.3-5.1); Sodium 134 mmol/L (135-145)
[2020-06-14] MEDS: Morphine Sulfate 2 MG/ML CARTRIDGE 0.5 MG IVPUSH ×3 (10:45→22:35)
--- NOTE | 2020-06-14 10:47 | P.CDIC_ITS ---
CDI Concurrent Query Service Date: 06/14/20 Documentation Clarification: Please clarify if you are treating a proba ble/suspected/likely or confirmed: Hypomagnesemim-present . Please specify if known Provider Response: Other Other Diagnosis: Hypomagnesemia PLEASE DO NOT DELETE/MODIFY EXISTING CONTENT Additional information is needed in order to code to the highest accuracy and appropriate Severity of Illness (SOI). Please clarify the information noted below in your progress notes and discharge summary. Risk Factors/Clinical Indicators/Treatments Labs: magnesium 1.3 L IV magnesium sulfate Ed: Clinical impression - hypomagnesemim CDS: Tamar Garcia CCS, CDIS Contact Number: [phone] Please Review the information above and exercise your independent professional judgment in responding to the query. If you concur, pleas document in the PROGRESS NOTES and DISCHARGE SUMMARY. If you do not agree with the query, please document in the query above. THIS QUERY IS PART OF THE PERMANENT MEDICAL RECORD
[2020-06-14 12:06] LABS: Iron 64 mcg/dL (30-160); Percent Iron Saturation 37 % (15-50); Total Iron Binding Capacity 171 mcg/dL (228-428); Unsaturated Iron Binding 107 ug/dL
[2020-06-14 12:22] LABS: Ferritin 979 ng/mL (10-250)
[2020-06-14 12:45] LABS: Folate > 20.0 ng/mL (> or = 4.0); Vitamin B12 > 2000 pg/mL (200-900)
[2020-06-14 13:47] LABS: OBS Int Ctl Valid YES; OBS1 NEG (NEG)
--- NOTE | 2020-06-14 17:11 | HO.PM.IMPN ---
Subjective Subjective Date of Service: 06/14/20 Interval History: Abdominal pain, colitis Review of Systems Patient still has abdominal pain, also has diarrhea, denies any nausea or vomiting No fever or chills No urinary complaints Physical Exam Vital Signs: Vital Signs: Last Vital Signs Temp 99.7 F 06/14/20 15:02 Pulse 100 06/14/20 15:02 Resp 18 06/14/20 15:02 BP 127/73 06/14/20 15:02 Pulse Ox 95 06/14/20 15:02 Body Mass Index 19.7 Physical exam: Cvs: rrr, [id number] , no murmur res: clear to auscultation ,no rhonchii or wheezing abd: no rebound or guarding ,still has abd pain diffuse seems slightly better , bs present. ext pulses present , no cyanosis neuro: axo3 , nonfocal. Objective Data Current Medications Generic Name Dose Route Start Last Admin Trade Name Freq PRN Reason Stop Dose Admin Atorvastatin Calcium 40 mg 06/13/20 21:00 06/13/20 22:54 Atorvastatin Calcium 40 Mg Tablet PO 40 mg BEDTIME BRYANNA Administration Cyanocobalamin 1,000 mcg 06/14/20 09:00 06/14/20 08:24 Cyanocobalamin (Vitamin B-12) 1,000 Mcg Tablet PO 1,000 mcg DAILY BRYANNA Administration Escitalopram Oxalate 5 mg 06/14/20 09:00 06/14/20 08:24 Escitalopram Oxalate 5 Mg Tablet PO 5 mg DAILY BRYANNA Administration Folic Acid 1 mg 06/14/20 09:00 06/14/20 08:24 Folic Acid 1 Mg Tablet PO 1 mg DAILY BRYANNA Administration Hydroxyzine HCl 25 mg 06/13/20 17:23 Hydroxyzine Hcl 25 Mg Tablet PO DAILY PRN Weight Gain Sodium Chloride 1,000 mls @ 80 mls/hr 06/13/20 21:57 06/14/20 10:51 Ns IVCONT 80 mls/hr .[id number] BRYANNA Administration Loratadine 10 mg 06/13/20 17:23 Loratadine 10 Mg Tablet PO DAILY PRN allergies Mesalamine 400 mg 06/13/20 21:00 06/14/20 16:46 Mesalamine 400 Mg Cap.Drtab. PO 400 mg QID BRYANNA Administration Morphine Sulfate 0.5 mg 06/14/20 10:08 06/14/20 16:47 Morphine Sulfate 2 Mg/Ml Cartridge IVPUSH 0.5 mg Q6H PRN Administration Pain and Fever Non-Formulary Medication 1 puff 06/13/20 17:30 06/14/20 15:44 Fluticasone Propion-Salmeterol [Wixela Inhub] PO Not Given Q12H BRYANNA Ondansetron HCl 4 mg 06/13/20 21:57 Ondansetron Hcl 4 Mg/2 Ml Vial IVPUSH Q8H PRN Nausea and Vomiting Pantoprazole Sodium 40 mg 06/13/20 21:00 06/14/20 08:24 Pantoprazole Sodium 40 Mg/10 Ml Vial IVPUSH 40 mg BID BRYANNA Administration Pharmacy Consult 1 each 06/13/20 15:12 Consult Rx Perform Med Rec MISCELLANE ONCE PRN Consult order Sodium Chloride 3 ml 06/13/20 21:57 06/14/20 15:43 0.9 % Sodium Chloride Flush 3 Ml Syringe IVFLUSH 3 ml QSHIFT BRYANNA Administration Labs CBC & Chem 7: 06/14/20 05:31 06/14/20 09:38 Assessment and Plan (1) Anemia: Status: Acute (2) Abnormal LFTs: Status: Acute (3) Acute pancreatitis: Status: Acute (4) Hypomagnesemia: Status: Acute (5) Ulcerative colitis: Status: Acute Assessment and Plan: 69 year old women admitted with pancreatitis and possible UC flare. 1.Pancreatitis. Aggressive IV fluid hydration, clear liquids for now. Related to Alcohol abuse said she stopped alcohol 1-2 weeks back But her last alcohol level was on 05/31 was 290's range etoh levels <10 added morphine for pain zofran prn 2.Ulcerative colitis. still mixon diarrhae Stool for WBC, C diff, culture. No excessive bleeding noted by patient. Hold off on steroids in light of anemia, discuss with GI. GI eval pending 3.Anemia ? acute blood loss vs ulcerative colitis: transfuse 2 units PRBC, Follow HH. No overt bleeding. PPI. H&H improved to 12. Iron study and B12 and folate added. 4. ?Liver dis , elevated LFTs Likely from alcohol use. Question related to alcohol use inr 1.3 moniter lft's an dinr DVT prophylaxis with Mechanical compression boots. (6) Anemia: Status: Acute
--- NOTE | 2020-06-14 17:31 | PM.EVENT ---
Event Note Date of Service: 06/14/20 Event Note: GI Consult-Full note dictated Hx via patient, RN, and EMR Imp: 69 yo female with refractory ulcerative colitis complicated by EtOH abuse, probable noncompliance with meds, and minimal changes of pancreatitis on her CT. Her main issue presently is that of ongoing diarrhea and associated anemia probably in relation to GI blood loss from active colitis. Her abdominal exam is benign. Rec: Trial of IV steroids, increase mesalamine, check stools for Cdiff, dose of IV Vit K, F/U labs in AM. Psych or social services designee consult to assess her competency and ability to take care of herself and her illness while abusing alcohol and not seeming to have a good understanding of her situation with her colitis and EtOH abuse. D/W patient in detail. Thanks.
[2020-06-14] MEDS: Hydrocortisone Sod Succ/PF 100 MG VIAL IVPUSH (18:12)
--- NOTE | 2020-06-14 18:41 | CONS_ITS ---
DATE OF SERVICE: 06/14/2020 REFERRING PHYSICIAN: Perla Brown MD REASON FOR CONSULTATION: Ulcerative colitis, diarrhea, anemia, and elevated LFTs. HISTORY OF PRESENT ILLNESS: The patient is a 69-year-old female, well known to me with underlying history of ulcerative colitis. I last saw her in April when she was hospitalized with a flare of her colitis that required IV steroids and increased mesalamine to try to calm things down. During that hospitalization, workup was negative for any sign of C diff or other infectious process. Prior to discharge, we had discussed the need for starting a biologic agent given her refractory colitis. She went home on a prednisone taper and mesalamine. Since being home, she was seen in the ER for alcohol intoxication in early May. She describes that was the last time she used alcohol. The reliability of that is not clear. She reports that she has been taking her medication, but again that is not entirely clear either. However, she does report that she has a nurse that comes to her house twice a day and helps her with the medication. She should have been in the midst of a prednisone taper as well as using her mesalamine. In any event, she came to the ER due to worsening diarrhea and perhaps some bleeding. She was found to be anemic and did require transfusions. Since admission here, she has continued to have diarrhea, but no sign of bleeding. She is having frequent loose and watery bowel movements. She had been having some abdominal pain rather diffusely. She has had some mild nausea, but no vomiting. She denies any melena. CURRENT MEDICATIONS: Include acetaminophen, atorvastatin, vitamins, citalopram, folic acid, Dilaudid p.r.n., hydroxyzine p.r.n., loratadine p.r.n., magnesium, mesalamine 4 mg q.i.d., morphine p.r.n., Zofran p.r.n., IV pantoprazole 40 mg b.i.d. PAST MEDICAL HISTORY: Long-standing ulcerative colitis diagnosed in the . Her most recent colonoscopy in December of 2017 revealed a woodruff colitis with more active colitis in the transverse colon extending to the rectum with biopsies negative for dysplasia. Recommendations had been made that she would be treated with a biologic agent in the past, but she was either noncompliant with followup or simply did not want to do it. She does have hyperlipidemia. Previous CO. Anemia. Anxiety. Alcohol abuse. Tubal ligation. FAMILY HISTORY: Negative for GI malignancy nor inflammatory bowel disease. SOCIAL HISTORY: She had been a smoker in the past. Alcohol abuse. REVIEW OF SYSTEMS: CONSTITUTIONAL: She has been feeling weak and tired at home. SKIN: No rash. No pruritus. CARDIAC: No chest pain. PULMONARY: No coughing or hemoptysis. GASTROINTESTINAL: As above. URINARY: No dysuria. No hematuria. PHYSICAL EXAMINATION: GENERAL: The patient is an alert, cooperative female. She appears cushingoid. SKIN: Warm and dry. Anicteric sclerae. CARDIAC: Normal S1 and S2. ABDOMEN: Soft, nondistended. Normal bowel sounds and nontender. EXTREMITIES: With some pretibial edema. LABORATORY DATA: Her hemoglobin on admission was 7.6 compared to 10.8 on May 31. Hemoglobin up to 12.2 after transfusions. White blood cell count of 7.1, platelets 262,000. PT 15.6 with INR of 1.3. Sodium 134, potassium 3.2, chloride 102, CO2 of 22, BUN 7, creatinine 0.5, iron 64, iron saturation 37%, ferritin 979. Total bilirubin is 3.0, direct bilirubin 1.9, AST 50, ALT 201, alkaline phosphatase 191. Albumin 2.3. B12 over 2000 and folate over 20. Stool was negative for occult blood. Alcohol level was nondetectable. COVID test was negative. She had a CAT scan of the abdomen and pelvis and a CT angiogram of the chest. These were negative for pulmonary embolism, acute pulmonary findings, and a small volume of ascites. There is some diffuse colon wall thickening consistent with a known history of colitis, but there was no sign of any abscess nor bowel obstruction. There is some very minimal stranding of fat near the pancreatic head, but no definitive pancreatitis within the pancreas itself. The liver appeared normal without biliary obstruction nor any radiographic evidence of cirrhosis. IMPRESSION: Given the patient's clinical history, it does appear that her colitis is remaining active. This may very well be in part related to noncompliance with her medication while she continues to intermittently abuse alcohol. At this point, her abdominal exam is benign and she appears stable. Her hemoglobin has improved and she does not appear to be actively bleeding. At this point, I think her main issue is that of the ongoing colitis with a probable component of noncompliance secondary to her alcohol abuse and perhaps some underlying psychiatric issues. At this point, I would recommend a trial of IV steroids and increase mesalamine to 1600 mg t.i.d. I would check stools to rule out C difficile. Followup laboratories have been ordered in the morning. Clinically, I do not think she has pancreatitis, and therefore I think her diet can be advanced as tolerated depending upon her response to the steroids and her diarrhea. Her elevated LFTs may be in part related to alcohol, although the ratio of the AST and ALT would not definitively support that. I would recommend evaluation prior to discharge for her ability to care for herself and her competency in regard to her ongoing illness while abusing alcohol and not seeming to have a very good understanding of her situation in that regard. As in the past, my office has been working on trying to get her started on Humira injections for the colitis, but her lack of compliance and cooperation has made things difficult in that regard. This has all been discussed with the patient in detail. Thank you for this consultation. MD JOLENE Baron/GLADYS / [id number] MTDD
[2020-06-14 19:03] LABS: Leukocytes Stool Qualitative NEGATIVE (NEGATIVE)
[2020-06-14 19:07] LABS: CDIFF Ag Positive (Negative); CDIFF Internal ctrl Dots and bkg OK (V); CDiff Toxin Negative (Negative)
[2020-06-14] MEDS: Phytonadione (Vit K1) 10 MG in 0.9 % Sodium Chloride 50 ML 51 MG IV (20:37)
[2020-06-14] MEDS: Mesalamine 400 MG CAP.DRTAB. 1600 MG PO (20:43)
[2020-06-14] MEDS: Atorvastatin Calcium 40 MG TABLET PO (20:43)
[2020-06-15] VITALS (7 sets, daily range): BP systolic 111–167; BP diastolic 82–97; PULSE 66–78; RESP 8–20; TEMP 36.1–37.1; O2SAT 97–100
[2020-06-15] MEDS: Hydrocortisone Sod Succ/PF 100 MG VIAL IVPUSH ×3 (02:17→17:17)
[2020-06-15] MEDS: 0.9 % Sodium Chloride 1,000 ML 80 ML IVCONT ×2 (02:37→15:16)
[2020-06-15] MEDS: Morphine Sulfate 2 MG/ML CARTRIDGE 0.5 MG IVPUSH ×3 (04:47→17:14)
[2020-06-15 06:47] LABS: Basophils Percent Auto 0.2 % (0-2); Hematocrit 36.8 % (37-47); Hemoglobin 12.5 g/dl (12.0-16.0); Imm Gran Abs Auto 0.05 X10*3/uL (0.00-0.03); Imm Gran Pct Auto 0.9 % (0.0-0.4); Lymphocytes Absolute Auto 0.5 X10*3/uL (1.2-4.9); MANUAL DIFF FLAG SCAN; Mean Corpuscular Volume 94.1 fL (80-98); Mean Platelet Volume 9.5 fL (9.4-12.3); Monocytes Absolute Auto 0.2 X10*3/uL (0.1-1.2); Monocytes Percent Auto 2.6 % (2-11); Neutrophils Absolute Auto 5.1 X10*3/uL (2.0-8.3); Neutrophils Percent Auto 87.3 % (45-73); Platelet Count 299 X10*3/uL (160-400); Red Blood Count 3.91 X10*6/uL (4.20-5.50); Red Cell Distribution Width 19.9 % (11.0-16.0); SCAN SMEAR FLAG 1; White Blood Count 5.8 X10*3/uL (4.8-10.8)
[2020-06-15 06:50] LABS: INTERNATIONAL NORM RATIO 1.2 (0.9-1.1); Prothrombin Time 14.7 SEC (10.8-13.0)
[2020-06-15 07:25] LABS: Alanine Aminotransferase 179 U/L (0-31); Albumin Level 2.5 g/dL (3.5-5.0); Alkaline Phosphatase 183 U/L (39-117); Anion Gap 13 (12-20); Aspartate Amino Transferase 31 U/L (5-31); Bilirubin Total 1.3 mg/dL (0.0-1.0); Blood Urea Nitrogen 6 mg/dL (9-16); Calcium 6.5 mg/dL (8.4-10.2); Carbon Dioxide 19 mmol/L (22-29); Chloride 102 mmol/L (96-108); Creatinine Clr Calc Pharmacy 67.9; Estimated Glomerular Filt Rate > 60; Glucose Fasting 284 mg/dL (60-99); Lipase 23 U/L (8-78); Potassium 3.5 mmol/l (3.3-5.1); Sodium 130 mmol/L (135-145); Total Protein 5.5 g/dL (6.5-8.0)
[2020-06-15 07:29] LABS: SLIDE REVIEW VERIFIED
[2020-06-15] MEDS: Mesalamine 400 MG CAP.DRTAB. 1600 MG PO ×3 (08:42→20:55)
[2020-06-15] MEDS: Escitalopram Oxalate 5 MG TABLET PO (08:43)
[2020-06-15] MEDS: Folic Acid 1 MG TABLET PO (08:43)
[2020-06-15] MEDS: Cyanocobalamin (Vitamin B-12) 1,000 MCG TABLET 1000 MCG PO (08:43)
[2020-06-15] MEDS: Pantoprazole Sodium 40 MG/10 ML VIAL IVPUSH ×2 (08:43→20:54)
[2020-06-15 09:25] LABS: CDiff Gene PCR NEGATIVE (Negative)
[2020-06-15] MEDS: Calcium Gluconate/NaCl,Iso-Osm 2 GM/100 ML PLAST..BAG IV (10:55)
--- NOTE | 2020-06-15 10:58 | PC.NURSE ---
REQUEST FOR ULTRASOUND IV INSERTION OBTAINED D/T POOR IV ACCESS. NOTED SWELLING/BRUISING TO LUE PREVIOUSLY MENTIONED IN NOTES. RUE ASSESSED; NOTABLE BRUISING TO MEDIAL ASPECT OF AC W/O SWELLING. RUE BASILIC VEIN ASSESSED WITH ULTRASOUND MACHINE AND NOTABLY PATENT. IV ACCESS OBTAINED WITH (20g x 1.75 inch) PRN ANGIOCATH TO RUE BASILIC VEIN. BLOOD RETURN VISUALIZED; FLUSHES EASILY, PT DENIES ANY COMPLAINTS R/T RUE PRN ANGIO. SECURED WITH BIOPATCH AND TEGADERM.
--- NOTE | 2020-06-15 12:56 | PM.CNNEP ---
History of Present Illness Reason for Consult Consult date: 06/15/20 Reason for consult: hypocalcemia Chief Complaint Chief complaint: Pancreatitis History of Present Illness Narrative: Asked to see for hypoCa in setting of adm with GI symptoms with N/V/diarrhea andnoted abnl LFTs.In reveiwing labs she has low Ca 6.5 and low alb 2.3 which neans her correct SCa is 8.2 which is low end of normal. Also noted to have mild hypoNa ( 130) and hypoMg ( 1.3). Alcohol abuse Anemia Anxiety CAD (coronary artery disease) Hyperlipidemia Ulcerative colitis Review of Systems Review of Systems Denies any recent fever chills or decrease in appetite respiratory denies any shortness of breath coverage production cardiovascular is adjustment of any PND or edema gastrointestinal denies any dysphagia abdominal pain nausea vomiting or diarrhea genitourinary denies any dysuria frequency or hematuria musculoskeletal denies any joint pain or swelling neuropsych denies any weakness or seizures all other systems reviewed are negative [facility] Past Medical History Medical History Alcohol abuse Anemia Anxiety CAD (coronary artery disease) Hyperlipidemia Ulcerative colitis Family History Family History (Updated 05/18/20 @ 16:39 by Cj Jaramillo MD) Father Liver cancer Alcoholism Surgical History Surgical History Hx of tubal ligation Social History Social History Household Members: None Housing: House Alcohol intake: current Alcohol type: beer Smoking Status: Former smoker Second Hand Smoke Exposure: No Use of substances other than those prescribed or required for medical reasons: No Currently Displaying Signs/Symptoms of Drug Intoxication Withdrawal: No Have you been hit, kicked, punched, or otherwise hurt by someone within the past year? If so, by whom?: No Do you feel safe in your current relationship?: No Current Relationship Is there a partner from a previous relationship who is making you feel unsafe now?: No Are you made to feel afraid or neglected: No Advance Directives: No Advance Directives Information Provided: Yes Do you have thoughts of harming others: None Do you have a plan to hurt others: No Plan Recently lost weight without trying: Unsure service: No Current occupational status: retired Meds Allergies Allergy/AdvReac Type Severity Reaction Status Date / Time strawberry [[place]] Allergy Intermediate HIVES Verified 05/18/20 10:34 Sulfa (Sulfonamide Allergy Intermediate RASH Verified 05/18/20 10:34 Antibiotics) morphine Allergy Unknown itching Verified 05/18/20 10:34 Strawberries Allergy Unknown Unknown Uncoded 05/18/20 10:34 [place] C Allergy Unknown rash Uncoded 12/07/14 00:00 Home Medications Medication Instructions Recorded Confirmed Type ascorbic acid (vitamin C) 250 mg PO DAILY 05/18/20 06/13/20 History atorvastatin 40 mg PO BEDTIME 05/18/20 06/13/20 History cyanocobalamin (vitamin B-12) 1 tab PO DAILY 05/18/20 06/13/20 History escitalopram oxalate 5 mg PO DAILY 05/18/20 06/13/20 History ferrous sulfate 325 mg PO BIDWM 05/18/20 06/13/20 History fluticasone propion-salmeterol 1 puff PO Q12H 05/18/20 06/13/20 History [Wixela Inhub] folic acid 1 mg PO DAILY 05/18/20 06/13/20 History hydroxyzine HCl 25 mg PO DAILY PRN 05/18/20 06/13/20 History loratadine 10 mg PO DAILY PRN 05/18/20 06/13/20 History mesalamine 400 mg PO QID 05/18/20 06/13/20 History omega-3 acid ethyl esters 1 cap PO DAILY 05/18/20 06/13/20 History dicyclomine 10 mg PO TID PRN 06/13/20 06/13/20 History nabumetone 1 tab PO BID PRN 06/13/20 06/13/20 History Physical Exam Vital Signs: Last Vital Signs Temp 96.9 F 06/15/20 11:16 Pulse 73 06/15/20 11:16 Resp 18 06/15/20 11:16 BP 144/87 H 06/15/20 11:16 Pulse Ox 99 06/15/20 11:16 Body Mass Index 19.7 Physical exam: Cvs: rrr, [id number] , no murmur res: clear to auscultation ,no rhonchii or wheezing abd: no rebound or guarding ,still has abd pain diffuse seems slightly better , bs present. ext pulses present , no cyanosis neuro: axo3 , nonfocal. Const Other: Last Vital Signs Temp 96.9 F 06/15/20 11:16 Pulse 73 06/15/20 11:16 Resp 18 06/15/20 11:16 BP 144/87 H 06/15/20 11:16 Pulse Ox 99 06/15/20 11:16 Body Mass Index 19.7 Cardio Other: Last Vital Signs Temp 96.9 F 06/15/20 11:16 Pulse 73 06/15/20 11:16 Resp 18 06/15/20 11:16 BP 144/87 H 06/15/20 11:16 Pulse Ox 99 06/15/20 11:16 Body Mass Index 19.7 Results Lab Results Result Diagrams: 06/15/20 05:59 06/15/20 05:59 Lab results: Chemistry 06/13/20 06/14/20 06/14/20 Unknown 05:31 09:38 Sodium 136 134 L 134 L Potassium 3.3 2.8 L 3.2 L Carbon Dioxide 21 L 26 22 BUN 10 6 L 7 L Creatinine 0.51 0.49 L 0.50 Calcium 6.9 L D 6.4 L D 6.5 L 06/15/20 05:59 Sodium 130 L Potassium 3.5 Carbon Dioxide 19 L BUN 6 L Creatinine 0.62 Calcium 6.5 L Hematology 06/13/20 06/13/20 06/14/20 12:43 22:24 05:31 WBC 5.8 7.1 Hgb 7.6 L D 10.4 L D 12.2 Plt Count 306 262 06/15/20 05:59 WBC 5.8 Hgb 12.5 Plt Count 299 Urinalysis 06/13/20 14:54 Urine Color YELLOW Urine Appearance CLEAR Urine pH 5.5 Ur Specific [place] 1.015 Urine Protein NEG Urine Glucose (UA) NEG Urine Ketones NEG Urine Blood TRACE Urine Nitrite NEG Ur Leukocyte Esterase NEG Urine RBC 0-2 Urine WBC 0 Ur Squamous Epith Cells 1+ Assessment and Plan (1) Anemia: Qualifiers: Anemia type: unspecified type Qualified Code(s): D64.9 - Anemia, unspecified Status: Acute (2) Abnormal LFTs: Status: Acute (3) Acute pancreatitis: Qualifiers: Acute pancreatitis complication: unspecified Pancreatitis type: alcohol induced Qualified Code(s): K85.20 - Alcohol induced acute pancreatitis without necrosis or infection Status: Acute (4) Hypomagnesemia: Status: Acute (5) Ulcerative colitis: Status: Acute 1. HypoCa: with correction for lowSalb her SCa is onl;y slt low and this may be d/t nutrtional issues, hypoMg, vit D def, doubt hypopara but this would be in the differential; acute panceratits can be assoc with hypoCa but her amylase/lipase are not elevated 2. HypoNa: suspect d/t low solute intake and too much po fluids 3. HypoMg REC: check vit D 25 and PTH levels; cand then start PO vit D and Ca replaceemnt; avoid excess PO fluid intake; will check TSH, am cortisol andurine studies to eval hypoNa; may need to restrcit po fluids to avoid further drop in SNa ( note tpically with diarrhea the SNa will incr d/t incr hypotonic fluid loss in the stool) Procedures Abscess I/D Date of Service: 06/15/20
--- NOTE | 2020-06-15 14:49 | HO.PM.IMPN ---
Subjective Subjective Date of Service: 06/15/20 Interval History: Abdominal pain, colitis Review of Systems She still has abdominal pain, diarrhea Denies any urinary complaint or chest pain or shortness of breath. Physical Exam Vital Signs: Vital Signs: Last Vital Signs Temp 96.9 F 06/15/20 11:16 Pulse 73 06/15/20 11:16 Resp 18 06/15/20 11:16 BP 144/87 H 06/15/20 11:16 Pulse Ox 99 06/15/20 11:16 Body Mass Index 19.7 Physical exam: Heent: eyes: anicteric , no discharge . Cvs: rrr, [id number] , no murmur. res: clear to auscultation ,no rhonchii or wheezing abd: no rebound or guarding ,nt, bs present. ext pulses present , no cyanosis neuro: axo3 , nonfocal. Objective Data Current Medications Generic Name Dose Route Start Last Admin Trade Name Freq PRN Reason Stop Dose Admin Atorvastatin Calcium 40 mg 06/13/20 21:00 06/14/20 20:43 Atorvastatin Calcium 40 Mg Tablet PO 40 mg BEDTIME BRYANNA Administration Calcium Carbonate 500 mg 06/15/20 09:00 06/15/20 08:43 Calcium Carbonate 500 Mg Tablet PO 500 mg TID BRYANNA Administration Cyanocobalamin 1,000 mcg 06/14/20 09:00 06/15/20 08:43 Cyanocobalamin (Vitamin B-12) 1,000 Mcg Tablet PO 1,000 mcg DAILY BRYANNA Administration Escitalopram Oxalate 5 mg 06/14/20 09:00 06/15/20 08:43 Escitalopram Oxalate 5 Mg Tablet PO 5 mg DAILY BRYANNA Administration Folic Acid 1 mg 06/14/20 09:00 06/15/20 08:43 Folic Acid 1 Mg Tablet PO 1 mg DAILY BRYANNA Administration Hydrocortisone Sodium Succinate 100 mg 06/14/20 18:00 06/15/20 08:44 Hydrocortisone Sod Succ/Pf 100 Mg Vial IVPUSH 100 mg Q8H BRYANNA Administration Hydroxyzine HCl 25 mg 06/13/20 17:23 Hydroxyzine Hcl 25 Mg Tablet PO DAILY PRN Weight Gain Sodium Chloride 1,000 mls @ 80 mls/hr 06/13/20 21:57 06/15/20 12:22 Ns IVCONT Not Given .[id number] BRYANNA Loratadine 10 mg 06/13/20 17:23 Loratadine 10 Mg Tablet PO DAILY PRN allergies Mesalamine 1,600 mg 06/14/20 21:00 06/15/20 08:42 Mesalamine 400 Mg Cap.Drtab. PO 1,600 mg TID BRYANNA Administration Morphine Sulfate 0.5 mg 06/14/20 10:08 06/15/20 10:55 Morphine Sulfate 2 Mg/Ml Cartridge IVPUSH 0.5 mg Q6H PRN Administration Pain and Fever Non-Formulary Medication 1 puff 06/13/20 17:30 06/15/20 04:44 Fluticasone Propion-Salmeterol [Wixela Inhub] PO Not Given Q12H BRYANNA Ondansetron HCl 4 mg 06/13/20 21:57 Ondansetron Hcl 4 Mg/2 Ml Vial IVPUSH Q8H PRN Nausea and Vomiting Pantoprazole Sodium 40 mg 06/13/20 21:00 06/15/20 08:43 Pantoprazole Sodium 40 Mg/10 Ml Vial IVPUSH 40 mg BID BRYANNA Administration Pharmacy Consult 1 each 06/13/20 15:12 Consult Rx Perform Med Rec MISCELLANE ONCE PRN Consult order Sodium Chloride 3 ml 06/13/20 21:57 06/15/20 08:44 0.9 % Sodium Chloride Flush 3 Ml Syringe IVFLUSH Not Given QSHIFT [facility] Labs CBC & Chem 7: 06/15/20 05:59 06/15/20 05:59 Microbiology Microbiology Results: Microbiology 06/14/20 18:00 Stool Stool Culture - Preliminary Culture in progress. Assessment and Plan (1) Anemia: Status: Acute (2) Abnormal LFTs: Status: Acute (3) Acute pancreatitis: Status: Acute (4) Hypomagnesemia: Status: Acute (5) Anemia: Status: Acute (6) Ulcerative colitis: Status: Acute Assessment and Plan: 69 year old women admitted with pancreatitis and possible UC flare. 1.Pancreatitis. Discussed with GI unlikely pancreatitis Hold off IV fluids But her last alcohol level was on 05/31 was 290's range etoh levels <10 this admission 2.Ulcerative colitisflare As per Dr. Tello note-patient having noncompliance for research occult colitis management out patiently, also question of intermittent alcohol use. still mixon diarrhae Stool for WBC neg, stool culture pending. c diff added No excessive bleeding noted by patient. Hold off on steroids in light of anemia, discuss with GI. on iv hydrocortisone , morphine for pain,zofran prn 3.Anemia ? acute blood loss vs ulcerative colitis: h/h 12.5- s/p 2 prbc fobt neg iron , iron sats normal , tibc low , ferritin high, folate level normal, B12 levels high ? anemia of ch dis Normocytic anemia 4. ? elevated LFTs -seems improving Question related to alcohol use inr 1.2 moniter lft's an inr 5. hyponatremia /hypocalcemia : adjusted sodium near 132 range adjusted calcium in 7.5 range( albumin 2.5) will add calcium nephro eval 6. probable has moderate Malnutrition: will add nutritionst consult 7. mild hyperglycemia :? realted to steriods will add Hba1c
[2020-06-15 15:43] LABS: Estimated Average Glucose 111 mg/dL; Hemoglobin A1c % 5.5 %
--- NOTE | 2020-06-15 15:44 | MHC.CM.PN ---
per multi dis rounds dc plan rem,anins the same home with resumption of preadmission sevcies
[2020-06-15 16:54] LABS: Anion Gap 14 (12-20); Blood Urea Nitrogen 5 mg/dL (9-16); Calcium 6.9 mg/dL (8.4-10.2); Carbon Dioxide 16 mmol/L (22-29); Chloride 100 mmol/L (96-108); Creatinine Clr Calc Pharmacy 64.8; Estimated Glomerular Filt Rate > 60; Glucose Random 340 mg/dL (60-115); Magnesium 1.5 mg/dL (1.6-2.6); Phosphorus 1.2 mg/dL (2.7-4.5); Sodium 127 mmol/L (135-145)
[2020-06-15 17:02] LABS: TSH reflex Free T4 1.19 mIU/mL (0.32-4.0)
[2020-06-15 17:04] LABS: Vitamin D 25-OH Total 13.9 ng/mL (>30)
[2020-06-15] MEDS: Magnesium Sulfate/H2O 2 GM/50 ML PIGGYBACK IV (20:55)
[2020-06-15] MEDS: Atorvastatin Calcium 40 MG TABLET PO (20:55)
[2020-06-15 21:54] LABS: Sodium 129 mmol/L (135-145)
--- NOTE | 2020-06-15 22:09 | PC.NURSE ---
sodium level 129,Dr Lee notified
[2020-06-15] MEDS: 0.9 % Sodium Chloride Flush 3 ML SYRINGE IVFLUSH (23:39)
[2020-06-16] VITALS (7 sets, daily range): BP systolic 111–148; BP diastolic 64–96; PULSE 65–92; RESP 15–20; TEMP 35.9–37; O2SAT 95–98
[2020-06-16] MEDS: Hydrocortisone Sod Succ/PF 100 MG VIAL IVPUSH ×3 (02:38→18:39)
[2020-06-16] MEDS: Morphine Sulfate 2 MG/ML CARTRIDGE 0.5 MG IVPUSH ×3 (02:46→16:24)
[2020-06-16] MEDS: Fluticasone/Vilanterol 100/25 BLST.W.DEV 1 PUFF INHALE (07:24)
[2020-06-16] MEDS: 0.9 % Sodium Chloride Flush 3 ML SYRINGE IVFLUSH ×3 (08:05→23:57)
[2020-06-16] MEDS: Escitalopram Oxalate 5 MG TABLET PO (08:06)
[2020-06-16] MEDS: Pantoprazole Sodium 40 MG/10 ML VIAL IVPUSH (08:06)
[2020-06-16] MEDS: Cyanocobalamin (Vitamin B-12) 1,000 MCG TABLET 1000 MCG PO (08:06)
[2020-06-16] MEDS: Potassium Chloride ER 20 MEQ TAB.ER.PRT 40 MEQ PO (08:06)
[2020-06-16] MEDS: Folic Acid 1 MG TABLET PO (08:06)
[2020-06-16] MEDS: Mesalamine 400 MG CAP.DRTAB. 1600 MG PO ×3 (08:06→21:09)
--- NOTE | 2020-06-16 08:27 | PM.PNNEP ---
Subjective Subjective Interval history: c/o Epigastric pain Says I want a cheese sandwich !! Physical Exam Vital Signs: Vital Signs: Last Vital Signs Temp 97.1 F 06/16/20 07:09 Pulse 67 06/16/20 07:09 Resp 18 06/16/20 07:09 BP 148/89 H 06/16/20 07:09 Pulse Ox 97 06/16/20 07:09 Body Mass Index 19.7 Const: General: cooperative Orientation/consciousness: oriented to person Neck: Neck: Yes supple Cardio: Heart sounds: no murmurs and no rubs GI: Auscultation: normal bowel sounds Neuro: General: oriented to person Gait exam (Neuro): not ataxic Assessment & Plan Assessment and plan (1) Hyponatremia: Problem details: Hyponatremia in a setting of Pancreatitis Na slowly improved Check Urine Na and Osm Keep PO water restriction Goal Na > 130 No indication for 3% NaCl Status: Acute Procedures Abscess I/D Date of Service: 06/16/20
--- NOTE | 2020-06-16 09:31 | MHC.CLN ---
RE: CONSULT PO INTAKE 75-100% OF LIQUID DIET WT HX WT UP 9# X ONE YEAR, NO SIG WT LOSS IBW 98% WNL NOTED ALBUMIN 2.5 MODERATE DEPLETION DIET RX: F/L-APPROPRIATE RECOMMEND ADDING ENSURE BID TO INCREASE PO PROTEIN INTAKE FOLLOWING
--- NOTE | 2020-06-16 09:42 | MHC.CM.PN ---
Addendum entered by Roseanne De Paz 06/16/20 15:25: Error: Pt is not discharging home today Original Note: contacted Angeles ([phone] at [facility] to inform her of pts pending discharge and need for service resumption. Angeles informed this grant writer that [facility] does not provide nursing visits for this pt, she is active with [facility] for twice daily medication management visits. [facility] updated and informed of DC via [employer]. Pt will discharge home today with resumption of [facility] and home energy consultant services via [facility].
[2020-06-16 13:16] LABS: Anion Gap 15 (12-20); Blood Urea Nitrogen 4 mg/dL (9-16); Calcium 7.2 mg/dL (8.4-10.2); Carbon Dioxide 17 mmol/L (22-29); Chloride 104 mmol/L (96-108); Creatinine Clr Calc Pharmacy 67.9; Estimated Glomerular Filt Rate > 60; Glucose Random 319 mg/dL (60-115); Potassium 3.6 mmol/l (3.3-5.1); Sodium 132 mmol/L (135-145)
[2020-06-16] MEDS: Ibuprofen 400 MG TABLET PO (13:44)
[2020-06-16 14:15] LABS: Osmolality Urine 439 mosm/kg (373-1093)
[2020-06-16 14:28] LABS: Creatinine Urine 57.19 mg/dL; Sodium Urine Random < 20.0 mmol/L
--- NOTE | 2020-06-16 17:31 | P.PNIM_ITS ---
Subjective Subjective Date of Service: 06/17/20 Interval History: Ulcerative colitis flare, question of C diff Review of Systems Patient says abdominal pain seems slowly better also diarrhea is improving Physical Exam Vital Signs: Vital Signs: Last Vital Signs Temp 97.0 F 06/16/20 16:00 Pulse 78 06/16/20 16:00 Resp 16 06/16/20 16:24 BP 117/68 06/16/20 16:00 Pulse Ox 98 06/16/20 16:00 Body Mass Index 19.7 Physical exam: Cvs: rrr, [id number] , no murmur res: clear to auscultation ,no rhonchii or wheezing abd: no rebound or guarding , abdominal pain present, bs present. ext pulses present , no cyanosis neuro: axo3 , nonfocal. Objective Data Current Medications Generic Name Dose Route Start Last Admin Trade Name Freq PRN Reason Stop Dose Admin Atorvastatin Calcium 40 mg 06/13/20 21:00 06/15/20 20:55 Atorvastatin Calcium 40 Mg Tablet PO 40 mg BEDTIME BRYANNA Administration Calcium Carbonate 500 mg 06/15/20 09:00 06/16/20 16:00 Calcium Carbonate 500 Mg Tablet PO 500 mg TID BRYANNA Administration Cyanocobalamin 1,000 mcg 06/14/20 09:00 06/16/20 08:06 Cyanocobalamin (Vitamin B-12) 1,000 Mcg Tablet PO 1,000 mcg DAILY BRYANNA Administration Escitalopram Oxalate 5 mg 06/14/20 09:00 06/16/20 08:06 Escitalopram Oxalate 5 Mg Tablet PO 5 mg DAILY BRYANNA Administration Fluticasone/Vilanterol 1 puff 06/16/20 08:00 06/16/20 07:24 Fluticasone/Vilanterol 100/25 Blst.W.Dev INHALE 1 puff RDAILY BRYANNA Administration Folic Acid 1 mg 06/14/20 09:00 06/16/20 08:06 Folic Acid 1 Mg Tablet PO 1 mg DAILY BRYANNA Administration Hydrocortisone Sodium Succinate 100 mg 06/14/20 18:00 06/16/20 08:06 Hydrocortisone Sod Succ/Pf 100 Mg Vial IVPUSH 100 mg Q8H BRYANNA Administration Hydroxyzine HCl 25 mg 06/13/20 17:23 Hydroxyzine Hcl 25 Mg Tablet PO DAILY PRN Weight Gain Loratadine 10 mg 06/13/20 17:23 Loratadine 10 Mg Tablet PO DAILY PRN allergies Mesalamine 1,600 mg 06/14/20 21:00 06/16/20 16:00 Mesalamine 400 Mg Cap.Drtab. PO 1,600 mg TID BRYANNA Administration Morphine Sulfate 0.5 mg 06/14/20 10:08 06/16/20 16:24 Morphine Sulfate 2 Mg/Ml Cartridge IVPUSH 0.5 mg Q6H PRN Administration Pain and Fever Ondansetron HCl 4 mg 06/13/20 21:57 Ondansetron Hcl 4 Mg/2 Ml Vial IVPUSH Q8H PRN Nausea and Vomiting Pantoprazole Sodium 40 mg 06/13/20 21:00 06/16/20 08:06 Pantoprazole Sodium 40 Mg/10 Ml Vial IVPUSH 40 mg BID BRYANNA Administration Potassium Chloride 40 meq 06/16/20 09:00 06/16/20 08:06 Potassium Chloride Er 20 Meq Tab.Er.Prt PO 40 meq DAILY BRYANNA Administration Sodium Chloride 3 ml 06/13/20 21:57 06/16/20 16:00 0.9 % Sodium Chloride Flush 3 Ml Syringe IVFLUSH 3 ml QSHIFT BRYANNA Administration Labs CBC & Chem 7: 06/15/20 05:59 06/16/20 12:28 Microbiology Microbiology Results: Microbiology 06/14/20 18:00 Stool Stool Culture - Preliminary Culture in progress. Assessment and Plan (1) Ulcerative colitis: Status: Acute (2) Anemia: Status: Acute (3) Abnormal LFTs: Status: Acute (4) Acute pancreatitis: Status: Acute (5) Hypomagnesemia: Status: Acute (6) Anemia: Status: Acute Assessment and Plan: 69 year old women admitted with pancreatitis and possible UC flare. 1.Ulcerative colitisflare As per Dr. Tello note-patient having noncompliance for research occult colitis management out patiently, also question of intermittent alcohol use. still mixon diarrhae but slowly improving Patient initially came with question of pancreatitis which is less likely, since found to have flare of ulcerative colitis as well as she said that she stopped alcohol recently. Initially also had anemia question , so was transfused and H&H seems stable after that Seen by GI: Recommended to start IV hydrocortisone-which she received for almost 2 days and after that yesterday evening she was feeling slightly better so discussed with the GI and put her on p.o. prednisone but today again she saying she has more diarrhea and still has pain. Will try to advance the diet, switch her to p.o. oxycodone, continue prednisone- if her diarrhea does not improve then may need probably switch back to hydrocortisone. care team eval for support. 2.Anemia ? acute blood loss vs ulcerative colitis: h/h 12.5- s/p 2 prbc fobt neg iron , iron sats normal , tibc low , ferritin high, folate level normal, B12 levels high ? anemia of ch dis Normocytic anemia Continue to monitor CBC. 4. ? elevated LFTs -seems improving Question related to alcohol use inr 1.2 Continue to monitor LFTs. 5. hyponatremia : Probably related to volume loss due to diarrhea Improving with hydration and p.o. intake. Continue to monitor BMP 6.hypocalcemia : calcium imrpoving will add calcium + vitamin d, ultimately level is 13.9 6. probable has moderate Malnutrition: Nutrition fu 7. mild hyperglycemia :? realted to steriods Hba1c 5.5
[2020-06-16] MEDS: metroNIDAZOLE/NS 500 MG/100 ML PIGGYBACK 100 MG IV (18:41)
--- NOTE | 2020-06-16 19:49 | PM.EVENT ---
Event Note Date of Service: 06/16/20 Event Note: GI Followup Course noted. Clinically improving. Will change to po prednisone in AM. Course of po Flagyl for possible Cdiff. If stable on po steroids she can be discharged and I will continue try to get her started on Humira if she is agreeable and compliant with treatment and office visits. Hopefully she can remain abstinent from alcohol. Thanks
[2020-06-16] MEDS: Atorvastatin Calcium 40 MG TABLET PO (21:09)
[2020-06-17] MEDS: Morphine Sulfate 2 MG/ML CARTRIDGE 0.5 MG IVPUSH ×2 (00:02→06:16)
[2020-06-17 03:13] VITALS: BP 126/86; PULSE 81; RESP 20; TEMP 36.7; O2SAT 98
[2020-06-17] MEDS: metroNIDAZOLE 500 MG TABLET PO ×2 (05:38→10:56)
[2020-06-17] MEDS: Omeprazole 20 MG CAPSULE.DR PO (05:38)
[2020-06-17] MEDS: Fluticasone/Vilanterol 100/25 BLST.W.DEV 1 PUFF INHALE (07:34)
[2020-06-17 08:00] VITALS: PULSE 81; RESP 20
[2020-06-17 09:06] LABS: Calcium, Ionized 4.7 mg/dL (4.8-5.6)
[2020-06-17] MEDS: Mesalamine 400 MG CAP.DRTAB. 1600 MG PO ×2 (10:53→17:17)
[2020-06-17] MEDS: Potassium Chloride ER 20 MEQ TAB.ER.PRT 40 MEQ PO (10:54)
[2020-06-17] MEDS: Folic Acid 1 MG TABLET PO (10:56)
[2020-06-17] MEDS: predniSONE 20 MG TABLET 40 MG PO (10:57)
[2020-06-17] MEDS: Cyanocobalamin (Vitamin B-12) 1,000 MCG TABLET 1000 MCG PO (10:57)
[2020-06-17] MEDS: Escitalopram Oxalate 5 MG TABLET PO (10:57)
[2020-06-17] MEDS: 0.9 % Sodium Chloride Flush 3 ML SYRINGE IVFLUSH ×2 (10:58→17:18)
[2020-06-17 11:26] LABS: Calcium (PTHI) 7.1 mg/dL (8.6-10.4); PTHI 40 pg/mL (14-64)
[2020-06-17 11:38] VITALS: BP 150/87; PULSE 90; RESP 18; TEMP 36.2; O2SAT 98
--- NOTE | 2020-06-17 12:47 | MHC.CM.PN ---
called dr samuel who expins that pt may not be dcd today as she now has alanis he will deciede later this afternoo jaci at [facility] was updated via telephone
[2020-06-17] MEDS: oxyCODONE HCl Immed Release 5 MG TABLET PO (13:18)
--- NOTE | 2020-06-17 13:45 | PM.PNNEP ---
Subjective Subjective Interval history: Ulcerative colitis flare, question of C diff Physical Exam Vital Signs: Vital Signs: Last Vital Signs Temp 97.1 F 06/16/20 07:09 Pulse 67 06/16/20 07:09 Resp 18 06/16/20 07:09 BP 148/89 H 06/16/20 07:09 Pulse Ox 97 06/16/20 07:09 Body Mass Index 19.7 Const: Other: Last Vital Signs Temp 97.1 F 06/16/20 07:09 Pulse 67 06/16/20 07:09 Resp 18 06/16/20 07:09 BP 148/89 H 06/16/20 07:09 Pulse Ox 97 06/16/20 07:09 Body Mass Index 19.7 General: cooperative Orientation/consciousness: oriented to person Neck: Neck: Yes supple Cardio: Other: Last Vital Signs Temp 97.1 F 06/16/20 07:09 Pulse 67 06/16/20 07:09 Resp 18 06/16/20 07:09 BP 148/89 H 06/16/20 07:09 Pulse Ox 97 06/16/20 07:09 Body Mass Index 19.7 Heart sounds: no murmurs and no rubs GI: Auscultation: normal bowel sounds Neuro: General: oriented to person Gait exam (Neuro): not ataxic Assessment & Plan Assessment and plan (1) Hyponatremia: Problem details: Hyponatremia in a setting of Pancreatitis Na slowly improved Keep PO water restriction Goal Na > 130 No indication for 3% NaCl Status: Acute Procedures Abscess I/D Date of Service: 06/17/20
--- NOTE | 2020-06-17 15:00 | HO.WOUNDCONS ---
History of Present Illness Data of Consult Service Date: 06/17/20 Requesting physician: Perla Brown Primary Care Provider: Unknown Physician HPI Reason for consult: buttock wounds Ms. Mendez is a 69 year old female, ambulatory at home, with UC history, CAD and alcoholism. She came into the hospital with chest pain and there was concern of pancreatitis. Her appetite is good and she is having chronic diarrhea from UC flair. THe GI service is following for this. She denies urinary incontinence at home but wear briefs for occasional incontinence of stool. [facility] Medical History Alcohol abuse Anemia Anxiety CAD (coronary artery disease) Hyperlipidemia Ulcerative colitis Family History (Updated 05/18/20 @ 16:39 by Cj Jaramillo MD) Father Liver cancer Alcoholism Surgical History Hx of tubal ligation Social History Household Members: None Housing: House Alcohol intake: current Alcohol type: beer Smoking Status: Former smoker Second Hand Smoke Exposure: No Use of substances other than those prescribed or required for medical reasons: No Currently Displaying Signs/Symptoms of Drug Intoxication Withdrawal: No Have you been hit, kicked, punched, or otherwise hurt by someone within the past year? If so, by whom?: No Do you feel safe in your current relationship?: No Current Relationship Is there a partner from a previous relationship who is making you feel unsafe now?: No Are you made to feel afraid or neglected: No Advance Directives: No Advance Directives Information Provided: Yes Do you have thoughts of harming others: None Do you have a plan to hurt others: No Plan Recently lost weight without trying: Unsure service: No Current occupational status: retired Meds Allergies Allergy/AdvReac Type Severity Reaction Status Date / Time strawberry [[place]] Allergy Intermediate HIVES Verified 05/18/20 10:34 Sulfa (Sulfonamide Allergy Intermediate RASH Verified 05/18/20 10:34 Antibiotics) morphine Allergy Unknown itching Verified 05/18/20 10:34 Strawberries Allergy Unknown Unknown Uncoded 05/18/20 10:34 [place] C Allergy Unknown rash Uncoded 12/07/14 00:00 Home Medications Medication Instructions Recorded Confirmed Type ascorbic acid (vitamin C) 250 mg PO DAILY 05/18/20 06/13/20 History atorvastatin 40 mg PO BEDTIME 05/18/20 06/13/20 History cyanocobalamin (vitamin B-12) 1 tab PO DAILY 05/18/20 06/13/20 History escitalopram oxalate 5 mg PO DAILY 05/18/20 06/13/20 History ferrous sulfate 325 mg PO BIDWM 05/18/20 06/13/20 History fluticasone propion-salmeterol 1 puff PO Q12H 05/18/20 06/13/20 History [Wixela Inhub] folic acid 1 mg PO DAILY 05/18/20 06/13/20 History hydroxyzine HCl 25 mg PO DAILY PRN 05/18/20 06/13/20 History loratadine 10 mg PO DAILY PRN 05/18/20 06/13/20 History mesalamine 400 mg PO QID 05/18/20 06/13/20 History omega-3 acid ethyl esters 1 cap PO DAILY 05/18/20 06/13/20 History dicyclomine 10 mg PO TID PRN 06/13/20 06/13/20 History Physical Exam Vital Signs and Narrative: Vital Signs: Last Vital Signs Temp 97.2 F 06/17/20 11:38 Pulse 90 06/17/20 11:38 Resp 18 06/17/20 11:38 BP 150/87 H 06/17/20 11:38 Pulse Ox 98 06/17/20 11:38 Body Mass Index 19.7 She is upset because her pain medication is overdue. Once she calms a bit, she is cooperative and pleasant. She has reasonable hygiene. There are 4 open areas, one coccygeal involving the epidermis, and the remaining within the gluteal cleft where repetitive diarhhea might be caustic. These are areas of denuded epidermis, circular in nature, approx 1 cm diameter each with yellow slothy base. No erythema, edema or streaking to suggest cellultiis. Results Labs CBC and Chem 7: 06/15/20 05:59 06/16/20 12:28 Labs: Laboratory Results - last 24 hr 06/15/20 06/15/20 15:45 15:45 Ionized Calcium 4.7 L PTH Intact 40 Calcium (PTH Intact) 7.1 L Assessment and Plan (1) Ulcerative colitis: Status: Acute Suggest barrier cream with zinc bid until healed. These are not pressure related in anyway. There may be an element of maceration or friction if chronically incontinent, so topical powder could be added to barrier cream if desired. Continue to encourage adequate nutrition. Thank you for the courtesy of this consultation.
--- NOTE | 2020-06-17 15:03 | MHC.CM.PN ---
pt is being dcds today liz notified
--- NOTE | 2020-06-17 15:53 | P.DS_ITS ---
DS: Providers Provider Date of admission: 06/13/20 18:46 Primary care physician: Unknown Physician Consults: 06/13/20 21:57 Consult to Gastroenterology Routine Consulting Provider: Mateus Tello Reason for consultation: UC, anemia Has provider been notified: No 06/15/20 11:29 Consult to Nephrology Routine Consulting Provider: Ifeanyi Hensley Reason for consultation: hypocalcemia, hyponatremia Has provider been notified: No 06/16/20 19:28 Consult to Wound Care Provider Routine Consulting Provider: Edward Carmona Reason for consultation: MULTIPLE STAGE II TO BUTTOCK 06/17/20 12:50 Consult to Care Team Routine Comment: Reason for consultation: alcohol use, says quit ? 1-2 weeks, but on 05/31 her alcohol levels :293 DS: Diagnosis Discharge Diagnosis (1) Ulcerative colitis: Status: Acute DS: Medications Discharge Medications Home Medications: Home Medications Medication Instructions Recorded Confirmed ascorbic acid (vitamin C) 250 mg PO DAILY 05/18/20 06/13/20 atorvastatin 40 mg PO BEDTIME 05/18/20 06/13/20 cyanocobalamin (vitamin B-12) 1 tab PO DAILY 05/18/20 06/13/20 escitalopram oxalate 5 mg PO DAILY 05/18/20 06/13/20 ferrous sulfate 325 mg PO BIDWM 05/18/20 06/13/20 fluticasone propion-salmeterol 1 puff PO Q12H 05/18/20 06/13/20 [Wixela Inhub] folic acid 1 mg PO DAILY 05/18/20 06/13/20 hydroxyzine HCl 25 mg PO DAILY PRN 05/18/20 06/13/20 loratadine 10 mg PO DAILY PRN 05/18/20 06/13/20 mesalamine 400 mg PO QID 05/18/20 06/13/20 omega-3 acid ethyl esters 1 cap PO DAILY 05/18/20 06/13/20 dicyclomine 10 mg PO TID PRN 06/13/20 06/13/20 nabumetone 1 tab PO BID PRN 06/13/20 06/13/20 Previous Rx's Medication Instructions Recorded potassium chloride 10 meq PO DAILY #14 tab 05/26/20 DS: Summary Hospital Course Hospital Course: 69 year old women presenting with left upper quadrant abdominal pain with some associated nausea. She has a history of Ulcerative colitis with occassional red blood per rectum but large amounts recently. She started having substernal pain that started yesterday however, during the interview and examination her pain was to the left upper quadrant. She reports that she was a heavy drinker but stopped drinking hard liquor a few months ago. her last drink of beer was 3 weeks ago and she reported that she drinks 3-4 beers daily. in the ER, she was noted to be anemic with hemoglobin of 7.6 and hematocrit 22.7 , INR 1.2, magnesium 1.3, total bilirubin 1.5, direct bili Fernandez 1.0, AST 87, ALT 284, alk- phos 235, lipase 26. D-dimer was elevated [address] was obtained which was negative for any VTE. Abdominal CT showed small volume ascites with diffuse mild wall thickening of the colon consistent with history of ulcerative colitis. Pancreas showed some mild stranding. She was noted to have fever leukocytosis. Her vital signs are stable. To be admitted for further management and treatment of pancreatitis and possible ulcerative colitis flare. 69 year old women admitted with pancreatitis and possible UC flare. 1.Ulcerative colitisflare: Patient initially had abdominal pain and diarrhea, also question of pancreatitis which is less likely, since found to have flare of ulcerative colitis as well as she said that she stopped alcohol recently. Initially also had anemia so was2 prbc transfused and H&H seems stable afterwards in 12 range. Patient was seen by GI and Recommended to start IV hydrocortisone-which she received for almost 2 days -afterwards she was feeling better her diarrhea is improving and abdominal pain is also improving, so discussed with the GI and put her on p.o. prednisone but today again she saying she has more diarrhea and still has pain. In addition patient is to came out to be question of C diff: Discussed with the GI and started her on p.o. Flagyl upon discharge. Patient is to follow with GI within 3 -4 weeks time for further management, may need Humira out patiently. 2.Anemia ? acute blood loss vs ulcerative colitis: h/h 12.5- s/p 2 prbc fobt neg iron , iron sats normal , tibc low , ferritin high, folate level normal, B12 levels high ? anemia of ch dis Normocytic anemia Monitor CBC outpatient with PCP and GI and further management outpatient . 4. ? elevated LFTs -seems improving Question related to alcohol use Improving Continue to monitor LFTs with GI outpatient. 5. hyponatremia : Probably related to volume loss due to diarrhea Improving with hydration and p.o. intake. Continue to monitor BMP outpatient. 6.hypocalcemia : calcium imrpoving will add calcium + vitamin d, ultimately level is 13.9. tinue to monitor BMP outpatient. 7. mild hyperglycemia :? realted to steriods Hba1c 5.5. Above management discussed with the patient in detail length she understand and in agreement with the above plan, time spent 50 minutes and 50% time spent on counseling. Significant findings: As above. Procedures performed: None. Treatment and response: As above. Complications: None. Time Spent with Patient Time attestation: Total time spent providing and/or coordinating discharge services: Physical Exam Vital Signs: Vital Signs: Last Vital Signs Temp 97.2 F 06/17/20 11:38 Pulse 90 06/17/20 11:38 Resp 18 06/17/20 11:38 BP 150/87 H 06/17/20 11:38 Pulse Ox 98 06/17/20 11:38 Body Mass Index 19.7 Physical exam: Heent: eyes anicteric , no discharge. Cvs: rrr, [id number] , no murmur res: clear to auscultation ,no rhonchii or wheezing abd: no rebound or guarding ,nt, bs present. ext pulses present , no cyanosis : no urinary c/o. neuro: axo3 , nonfocal. DS: Data Data Completed and Pending Completed studies during hospitalization [Text1]: Procedures Transfusion of Nonautologous Red Blood Cells into Peripheral Vein, Percutaneous Approach (05/18/20) Labs on day of discharge: 06/13/20 Basic Metabolic Panel Stat D Dimer Stat Lipase Stat Liver Panel Stat Magnesium Stat Partial Thromboplastin Time Stat Prothrombin Time INR Stat 06/13/20 07:28 ECG 12 lead EKG Stat EKG Documentation DIRECTED XR chest 1V Stat 06/13/20 07:30 0.9 % Sodium Chloride [Ns] 500 ml IV 500 mls/hr 06/13/20 09:45 CT angio chest PE protocol Stat 06/13/20 09:46 fentaNYL citrate/PF [Sublimaze] 25 mcg IVPUSH ONCE ONE 06/13/20 10:10 Ethanol Stat Partial Thromboplastin Time Stat Prothrombin Time INR Stat 06/13/20 10:39 CT abdomen pelvis w con Stat 06/13/20 10:43 Magnesium Sulfate/H2O 2 gm in 50 ml IV ONCE 06/13/20 12:28 iohexoL 350 MG/ML [Omnipaque 350 MG/ML] 100 ml IV ONCE ONE 06/13/20 12:43 B Type Natriuretic Peptide Stat Complete Blood Count Man Dif Stat Troponin-I High Sensitivity Stat 06/13/20 14:03 HYDROmorphone HCl [Dilaudid] 0.5 mg IVPUSH ONCE ONE 06/13/20 14:54 COVID-19 ID NOW (Apps4Pro) Stat PTT [Partial Thromboplastin Time] Stat Prothrombin Time INR Stat 06/13/20 14:55 Red Blood Cells Stat Type and Screen Stat 06/13/20 15:12 Consult Rx Perform Med Rec 1 each MISCELLANE ONCE PRN 06/13/20 15:45 Transfer Order Routine 06/13/20 17:30 fluticasone propion-salmeterol [Wixela Inhub] 1 puff PO Q12H 06/13/20 17:35 Magnesium Sulfate/D5W 1 gm in 100 ml IV ONCE Potassium Chloride/H20 10 meq in 100 ml IV ONCE 06/13/20 17:39 Furosemide [Lasix] 20 mg IVPUSH ONCE ONE 06/13/20 Dinner Clear Liquid Diet 06/13/20 21:00 Mesalamine [Delzicol] 400 mg PO QID Pantoprazole Sodium [Protonix] 40 mg IVPUSH BID 06/13/20 21:57 0.9 % Sodium Chloride [Ns] 1,000 ml IVCONT 80 mls/hr 06/13/20 21:57 Compression Therapy QSHIFT IV insert/maintain Q4HR Vital Signs QSHIFT 06/13/20 22:24 Hemoglobin and Hematocrit Routine 06/13/20 22:50 Acetaminophen [Tylenol] 650 mg PO ONCE ONE 06/14/20 05:31 Basic Metabolic Panel DAILY@0600 Complete Blood Count Auto Diff DAILY@0600 Liver Panel DAILY@0600 Magnesium DAILY Prothrombin Time INR DAILY@0600 06/14/20 08:09 Magnesium Sulfate/D5W 1 gm in 100 ml IV ONCE Potassium Chloride Packet [Klor-Con Packet] 40 meq PO ONCE ONE 06/14/20 08:12 OBSX1 Stat 06/14/20 09:38 Basic Metabolic Panel Routine Ferritin Routine Folate Routine IRON PROFILE Routine Vitamin B12 Routine 06/14/20 10:08 Morphine Sulfate 0.5 mg IVPUSH Q6H PRN 06/14/20 14:17 Add Laboratory Test Urgent 06/14/20 17:15 Phytonadione (Vit K1) [Vitamin K] 10 mg 0.9 % Sodium Chloride [Ns] 50 ml IV ONCE 06/14/20 18:00 CDiff with Reflex to PCR Urgent Leukocytes Stool Qualitative Urgent Hydrocortisone Sod Succ/PF [SOLU-Cortef] 100 mg IVPUSH Q8H 06/15/20 05:59 Basic Metabolic Panel Fasting Routine Complete Blood Count Auto Diff Routine Lipase Routine Liver Panel Routine Prothrombin Time INR Routine SLIDE REVIEW Routine 06/15/20 06:08 Hemoglobin A1c Routine 06/15/20 08:27 Calcium Gluconate/NaCl,Iso-Osm [Calcium Gluconate] 2 gm in 100 ml IV ONCE 06/15/20 09:00 Calcium Carbonate [Os-Dioni] 500 mg PO TID 06/15/20 15:08 Add Laboratory Test Urgent 06/15/20 Lunch Full Liquid Diet Basic Metabolic Panel Stat Calcium, Ionized Stat Magnesium Stat PTHI Stat Phosphorus Stat TSH reflex Free T4 Routine Vitamin D 25-OH Total Stat 06/15/20 18:30 Magnesium Sulfate/H2O 2 gm in 50 ml IV ONCE 06/15/20 21:16 Sodium Routine 06/16/20 Breakfast Full Liquid Diet 06/16/20 11:41 Ibuprofen [Motrin] 400 mg PO ONCE ONE 06/16/20 12:28 Basic Metabolic Panel Stat 06/16/20 13:05 Creatinine Urine Routine Osmolality Urine Stat Sodium Urine Random Stat 06/16/20 18:15 metroNIDAZOLE/NS [Flagyl] 500 mg in 100 ml IV Q8H Laboratory Last Values WBC 5.8 X10*3/uL (4.8-10.8) 06/15/20 05:59 RBC 3.91 X10*6/uL (4.20-5.50) L 06/15/20 05:59 Hgb 12.5 g/dl (12.0-16.0) 06/15/20 05:59 Hct 36.8 % (37-47) L 06/15/20 05:59 MCV 94.1 fL (80-98) 06/15/20 05:59 MCH 32.0 pg (27.0-33.0) 06/15/20 05:59 MCHC 34.0 g/dl (31.0-35.0) 06/15/20 05:59 RDW 19.9 % (11.0-16.0) H 06/15/20 05:59 Plt Count 299 X10*3/uL (160-400) 06/15/20 05:59 MPV 9.5 fL (9.4-12.3) 06/15/20 05:59 Immature Gran % (Auto) 0.9 % (0.0-0.4) H 06/15/20 05:59 Neut % (Auto) 87.3 % (45-73) H 06/15/20 05:59 Lymph % (Auto) 9.0 % (20-40) L 06/15/20 05:59 [place] % (Auto) 2.6 % (2-11) 06/15/20 05:59 Eos % (Auto) 0.0 % (0-4) 06/15/20 05:59 Baso % (Auto) 0.2 % (0-2) 06/15/20 05:59 Lymph # (Auto) 0.5 X10*3/uL (1.2-4.9) L 06/15/20 05:59 [place] # (Auto) 0.2 X10*3/uL (0.1-1.2) 06/15/20 05:59 Eos # (Auto) 0.0 X10*3/uL (0.0-0.4) 06/15/20 05:59 Baso # (Auto) 0.0 X10*3/uL (0.0-0.2) 06/15/20 05:59 Abs Immat Gran (auto) 0.05 X10*3/uL (0.00-0.03) H 06/15/20 05:59 Absolute Neuts (auto) 5.1 X10*3/uL (2.0-8.3) 06/15/20 05:59 Absolute Nucleated RBC 0.000 X10*3/uL (0.0-0.012) 06/15/20 05:59 Nucleated RBC % (auto) 0.0 /100WBC (0.0-0.2) 06/15/20 05:59 Neutrophils % (Manual) 74 % (45-73) H 06/13/20 12:43 Band Neutrophils % 6 % (3-5) H 06/13/20 12:43 Lymphocytes % (Manual) 15 % (20-40) L 06/13/20 12:43 Monocytes % (Manual) 5 % (2-11) 06/13/20 12:43 Abs Neuts (Manual) 4.6 X10*3/uL (2.2-7.9) 06/13/20 12:43 Lymphocytes # (Manual) 0.9 X10*3/uL (0.6-4.8) 06/13/20 12:43 Monocytes # (Manual) 0.3 X10*3/uL (0.0-1.2) 06/13/20 12:43 Platelet Estimate NORMAL (NORMAL) 06/13/20 12:43 Plt Morphology Comment NORMAL 06/13/20 12:43 RBC Morphology NOTED 06/13/20 12:43 Hypochromasia 1+ 06/13/20 12:43 Macrocytosis 1+ 06/13/20 12:43 Smear Tech's Comments VERIFIED 06/15/20 05:59 PT 14.7 SEC (10.8-13.0) H 06/15/20 05:59 INR 1.2 (0.9-1.1) H 06/15/20 05:59 APTT 25.8 SEC (24.1-38.0) 06/13/20 Unknown D-Dimer 801 NG/ML 06/13/20 Unknown Sodium 132 mmol/L (135-145) L 06/16/20 12:28 Potassium 3.6 mmol/l (3.3-5.1) 06/16/20 12:28 Chloride 104 mmol/L (96-108) 06/16/20 12:28 Carbon Dioxide 17 mmol/L (22-29) L 06/16/20 12:28 Anion Gap 15 (12-20) 06/16/20 12:28 BUN 4 mg/dL (9-16) L 06/16/20 12:28 Creatinine 0.62 mg/dL (0.5-1.4) 06/16/20 12:28 Estim Creat Clear Calc 67.9 06/16/20 12:28 Estimated GFR > 60 06/16/20 12:28 Random Glucose 319 mg/dL (60-115) H 06/16/20 12:28 Fasting Glucose 284 mg/dL (60-99) H D 06/15/20 05:59 Estimat Average Glucose 111 mg/dL 06/15/20 06:08 Hemoglobin A1c % 5.5 % 06/15/20 06:08 Calcium 7.2 mg/dL (8.4-10.2) L 06/16/20 12:28 Ionized Calcium 4.7 mg/dL (4.8-5.6) L 06/15/20 15:45 Phosphorus 1.2 mg/dL (2.7-4.5) L 06/15/20 15:45 Magnesium 1.5 mg/dL (1.6-2.6) L 06/15/20 15:45 Iron 64 mcg/dL (30-160) 06/14/20 09:38 TIBC 171 mcg/dL (228-428) L 06/14/20 09:38 % Saturation 37 % (15-50) 06/14/20 09:38 Unsat Iron Binding 107 ug/dL 06/14/20 09:38 Ferritin 979 ng/mL (10-250) H 06/14/20 09:38 Total Bilirubin 1.3 mg/dL (0.0-1.0) H 06/15/20 05:59 Direct Bilirubin 1.0 mg/dL (0.0-0.5) H 06/15/20 05:59 AST 31 U/L (5-31) 06/15/20 05:59 ALT 179 U/L (0-31) H 06/15/20 05:59 Alkaline Phosphatase 183 U/L (39-117) H 06/15/20 05:59 Troponin I High Sens Cancelled 06/13/20 Unknown B-Natriuretic Peptide 83 pg/mL (<100) 06/13/20 12:43 Total Protein 5.5 g/dL (6.5-8.0) L 06/15/20 05:59 Albumin 2.5 g/dL (3.5-5.0) L 06/15/20 05:59 Lipase 23 U/L (8-78) 06/15/20 05:59 Vitamin B12 > 2000 pg/mL (200-900) H 06/14/20 09:38 25-OH Vitamin D Total 13.9 ng/mL (>30) 06/15/20 15:45 Folate > 20.0 ng/mL (> or = 4.0) 06/14/20 09:38 TSH 1.19 mIU/mL (0.32-4.0) 06/15/20 15:45 PTH Intact 40 pg/mL (14-64) 06/15/20 15:45 Calcium (PTH Intact) 7.1 mg/dL (8.6-10.4) L 06/15/20 15:45 Urine Color YELLOW 06/13/20 14:54 Urine Appearance CLEAR 06/13/20 14:54 Urine pH 5.5 (5.0-8.0) 06/13/20 14:54 Ur Specific [place] 1.015 (1.005-1.025) 06/13/20 14:54 Urine Protein NEG MG/DL (NEG-TRACE) 06/13/20 14:54 Urine Glucose (UA) NEG MG/DL (NEG) 06/13/20 14:54 Urine Ketones NEG MG/DL (NEG) 06/13/20 14:54 Urine Blood TRACE (NEG) 06/13/20 14:54 Urine Nitrite NEG (NEG) 06/13/20 14:54 Ur Leukocyte Esterase NEG (NEG) 06/13/20 14:54 Urine RBC 0-2 /HPF (0) 06/13/20 14:54 Urine WBC 0 /HPF (0-4) 06/13/20 14:54 Ur Squamous Epith Cells 1+ /LPF 06/13/20 14:54 Urine Bacteria NONE /LPF 06/13/20 14:54 Urine Osmolality 439 mosm/kg (373-1093) 06/16/20 13:05 Ur Random Sodium < 20.0 mmol/L 06/16/20 13:05 Urine Creatinine 57.19 mg/dL 06/16/20 13:05 Stool Occult Blood NEG (NEG) 06/14/20 08:12 Stool Leukocytes, Qual NEGATIVE (NEGATIVE) 06/14/20 18:00 Ethyl Alcohol < 10 mg/dL 06/13/20 10:10 C. difficile Tox B Gene NEGATIVE (Negative) 06/14/20 18:00 C. difficile Toxin A&B Negative (Negative) 06/14/20 18:00 C. difficile Antigen Positive (Negative) A 06/14/20 18:00 C. difficile Interpret PCR to be performed 06/14/20 18:00 COVID-19 (MANI) Negative (Negative) 06/13/20 14:54 COVID-19 Clin Com See Note 06/13/20 14:54 Blood Type A Positive 06/13/20 14:55 Antibody Screen NEGATIVE 06/13/20 14:55 Crossmatch See Detail 06/13/20 14:55 Preliminary micro results at discharge 06/14/20 18:00 Stool Culture - Preliminary Stool Culture in progress. Discharge Plan Discharge Patient Disposition: Home Health Service Referrals: [facility] [Other] ([employer] ) [facility] [Outside] Wilfrido Shine MD [Physician] - 1 Week (Tele 06/21/2020 @ 1:30 Dr will call you to discuss your hospital stay) Discharge Medications: New metronidazole 500 mg Tablet 500 mg PO BID Qty: 10 RF: 0 calcium carbonate-vitamin D3 [Oyster Shell Calcium-Vit D3] 250-125 mg-unit Tablet 1 tab PO DAILY Qty: 30 RF: 0 prednisone 10 mg tablet 10 mg PO DAILY Qty: 116 RF: 0 oxycodone 5 mg capsule 5 mg PO BID PRN (Reason: pain) Qty: 4 RF: 0 Continued atorvastatin 40 mg tablet 40 mg PO BEDTIME RF: 0 fluticasone propion-salmeterol [Wixela Inhub] 250-50 mcg/dose blister with device 1 puff PO Q12H RF: 0 cyanocobalamin (vitamin B-12) 1,000 mcg tablet 1 tab PO DAILY RF: 0 ascorbic acid (vitamin C) 250 mg tablet,chewable 250 mg PO DAILY RF: 0 ferrous sulfate 325 mg (65 mg iron) tablet 325 mg PO BIDWM RF: 0 folic acid 1 mg tablet 1 mg PO DAILY RF: 0 hydroxyzine HCl 25 mg tablet 25 mg PO DAILY PRN (Reason: Weight Gain) RF: 0 loratadine 10 mg tablet 10 mg PO DAILY PRN (Reason: allergies) RF: 0 escitalopram oxalate 5 mg tablet 5 mg PO DAILY RF: 0 omega-3 acid ethyl esters 1 gram capsule 1 cap PO DAILY RF: 0 mesalamine 400 mg capsule (with del rel tablets) 400 mg PO QID RF: 0 potassium chloride 10 mEq tablet extended release 10 meq PO DAILY Qty: 14 RF: 0 dicyclomine 10 mg capsule 10 mg PO TID PRN (Reason: Cramps) RF: 0 Discontinued nabumetone 750 mg tablet 1 tab PO BID PRN (Reason: Pain (Scale Score 1-3)) RF: 0 Discharge Orders: Discharge Order (Routine); Ordered 06/17/20 Ordered By: Perla Brown Diet: advance to usual diet Activity on Discharge: As tolerated Discharge Date/Time: 06/17/20 17:39 Other Ambulatory Orders: Basic Metabolic Panel (Routine) Timeframe: 20200620 Facility: [facility] - Location: Laboratory Ordered By: Perla Brown Complete Blood Count no Diff (Routine) Timeframe: 20200620 Facility: [facility] - Location: Laboratory Ordered By: Perla Brown Liver Panel (Routine) Timeframe: 20200620 Facility: [facility] - Location: Laboratory Ordered By: Perla Brown Visit Report Forms: Patient Portal Discharge page Care Plan Goals: Patient was initially admitted for ulcerative colitis flare, pancreatitis question, anemia , hypokalemia, hyponatremia and hypocalcemia: Initially started on bowel rest and started on fluids as well as subsequently advanced to IV hydrocortisone due to question of ulcerative colitis flare, in addition patient was found to have C diff and started on IV Flagyl, electrolytes were replaced and also found to have low vitamin-D levels-we addeCalcium and vitamin D, hyponatremia is improving with volume repletion. Patient was also advised in addition to that for alcohol abstinence because GI thinking to start her on room air out patiently. anemia markham patient was also transfuse 2 PRBC and H&H is stable in 12 range patient is to monitor CBC with PCP out patiently. In addition also has elevated mild LFTs which are improving probably related to question of alcohol use: Please monitor LFTs outpatient with PCP and further management accordingly as per PCP and Dr. Tello. Health Concerns: As above. Plan of Treatment: As above.
[2020-06-17 16:00] VITALS: BP 166/78; PULSE 80; RESP 20; TEMP 36.8; O2SAT 98
--- NOTE | 2020-06-17 17:23 | MHC.CARE ---
CARE Team reaches out to pt via phone in order to complete consult. Pt states that her granddaughter will be coming to pick her up in 10 mins. Pt declines offer of substance use resources. She states, I've been an alcoholic for years. She reported having no current substance use or mental health supports. She identifies that she still plans on drinking occasionally.. Pt identifies that she struggles with depression and feelings of loneliness. She is agree to referral for outpatient therapy and plans on reaching out to [facility] in [place].
== END 2020-06-17 17:39 | disposition home health service (06) | DRG 371 ==
LOC: HO.ED 14:06 → HO.IMC 19:17
PROVIDERS: Internal Medicine; Internal Medicine Hypertension Specialist; Internal Medicine Nephrology; Nurse Practitioner Acute Care; Admitting Provider Internal Medicine; Emergency Provider Emergency Medicine; Visit Provider Internal Medicine
DX: A04.72 Enterocolitis due to Clostridium difficile, not specified as recurrent (principal); K85.20 Alcohol induced acute pancreatitis without necrosis or infection; D68.9 Coagulation defect, unspecified; D62 Acute posthemorrhagic anemia; E44.0 Moderate protein-calorie malnutrition; Z68.1 Body mass index [BMI] 19.9 or less, adult; E78.5 Hyperlipidemia, unspecified; F41.9 Anxiety disorder, unspecified; F10.10 Alcohol abuse, uncomplicated; E87.6 Hypokalemia; I25.10 Atherosclerotic heart disease of native coronary artery without angina pectoris; R74.01 Elevation of levels of liver transaminase levels; Z91.14 Patient's other noncompliance with medication regimen; E83.51 Hypocalcemia; L98.419 Non-pressure chronic ulcer of buttock with unspecified severity; Z20.828 Contact with and (suspected) exposure to other viral communicable diseases; Z88.2 Allergy status to sulfonamides; Z79.51 Long term (current) use of inhaled steroids; Z79.52 Long term (current) use of systemic steroids; Z79.891 Long term (current) use of opiate analgesic; Z79.899 Other long term (current) drug therapy
CPT/HCPCS: 36415; 36430; 71045; 71275; 74177; 80048; 80076; 80320; 81001; 82272; 82306; 82330; 82533; 82607; 82728; 82746; 83036; 83540; 83690; 83735; 83880; 83935; 83970; 84100; 84295; 84300; 84443; 84484; 85007; 85014; 85018; 85025; 85027; 85379; 85610; 85730; 86850; 86900; 86901; 86920; 86923; 87045; 87046; 87077; 87324; 87449; 87493; 87635; 89055; 93005; 94640; 96361; 96365; 96375; 99225; 99285; J0610; J1170; J1940; J2270; J3010; J3430; J3475; P9016; Q9967

== ENCOUNTER 2020-07-03 18:51 | Emergency (ER) | payer MEDICARE, SELFPAY ==
[2020-07-03 19:04] VITALS: BP 122/77; PULSE 94; RESP 16; TEMP 36.8; O2SAT 97
--- NOTE | 2020-07-03 19:58 | ED.AMS ---
HPI - Altered Mental Status General Chief Complaint: Altered Mental Status Stated Complaint: AMS,FOUND ON FLOOR,NO NEW INJURY Time Seen by Provider: 07/03/20 19:17 Source: patient Mode of arrival: ambulatory Limitations: no limitations History of Present Illness HPI narrative: patient comes to emergency room EMS. According to the patient, she was informed by 2 police officers walking to her house that she missed her doctor's appointment, she was asked to come here according to EMS, the patient is visiting nurse called EMS, patient was found on the floor. Patient reports multiple falls in the past, is not sure if she fell today, patient states the last time she remembers that she fell was in [facility]. Patient is known to drink alcohol. patient has old bruises in her face and in the back of the head, states it has been over a week since she had these bruises Related Data Home Medications Medication Instructions Recorded Confirmed ascorbic acid (vitamin C) 250 mg PO DAILY 05/18/20 06/13/20 atorvastatin 40 mg PO BEDTIME 05/18/20 06/13/20 cyanocobalamin (vitamin B-12) 1 tab PO DAILY 05/18/20 06/13/20 escitalopram oxalate 5 mg PO DAILY 05/18/20 06/13/20 ferrous sulfate 325 mg PO BIDWM 05/18/20 06/13/20 fluticasone propion-salmeterol 1 puff PO Q12H 05/18/20 06/13/20 [Wixela Inhub] folic acid 1 mg PO DAILY 05/18/20 06/13/20 hydroxyzine HCl 25 mg PO DAILY PRN 05/18/20 06/13/20 loratadine 10 mg PO DAILY PRN 05/18/20 06/13/20 mesalamine 400 mg PO QID 05/18/20 06/13/20 omega-3 acid ethyl esters 1 cap PO DAILY 05/18/20 06/13/20 dicyclomine 10 mg PO TID PRN 06/13/20 06/13/20 Previous Rx's Medication Instructions Recorded potassium chloride 10 meq PO DAILY #14 tab 05/26/20 calcium carbonate-vitamin D3 1 tab PO DAILY #30 tab 06/17/20 [Oyster Shell Calcium-Vit D3] metronidazole 500 mg PO BID #10 tab 06/17/20 oxycodone 5 mg PO BID PRN #4 cap 06/17/20 prednisone 10 mg PO DAILY #116 tab 06/17/20 Allergies Allergy/AdvReac Type Severity Reaction Status Date / Time strawberry [[place]] Allergy Intermediate HIVES Verified 05/18/20 10:34 Sulfa (Sulfonamide Allergy Intermediate RASH Verified 05/18/20 10:34 Antibiotics) morphine Allergy Unknown itching Verified 05/18/20 10:34 Strawberries Allergy Unknown Unknown Uncoded 05/18/20 10:34 [place] C Allergy Unknown rash Uncoded 12/07/14 00:00 Review of Systems Review of Systems: Constitutional : No Weight loss, No Fever, No Chills, No Night Sweats, No Fatigue, No Malaise ENT/Mouth : No Hearing loss, No Ear Pain, No Nasal Congestion, No Sinus Pain, No Hoarseness, No sore throat, No Rhinorrhea, No Swallowing Difficulty Eyes: No Eye Pain, No Swelling, No Redness, No Foreign Body, No Discharge, No Vision Changes Cardiovascular : No Chest Pain, No SOB, No Dyspnea on Exertion, No Orthopnea, No Edema, No Palpitations Respiratory : No Cough, No Sputum, No Wheezing, No Smoke Exposure, No Dyspnea Gastrointestinal : No Nausea, No Vomiting, No Diarrhea, No Constipation, No abdominal Pain, No Hematochezia, No Melena Genitourinary : no irregular bleeding, No Dysuria, No Urinary Frequency, No Hematuria, No Urinary Incontinence, No Urgency, No Flank Pain, No Urinary Flow Changes, No Hesitancy Musculoskeletal : No joint pain, No Myalgias, No Joint Swelling Skin : No Skin Lesions, No rash Neuro : No Weakness, complaining of a headache since [place] Endocrine: No Polydipsia, No Temperature Intolerance [facility] Past Medical History Medical History Acute pancreatitis Alcohol abuse Anemia Anxiety CAD (coronary artery disease) Hyperlipidemia Hypomagnesemia Ulcerative colitis Surgical History Hx of tubal ligation Family History Family History (Updated 05/18/20 @ 16:39 by Cj Jaramillo MD) Father Liver cancer Alcoholism Social History Social History Household Members: None Housing: House Alcohol intake: current Alcohol type: beer Smoking Status: Former smoker Second Hand Smoke Exposure: No Advance Directives: No Advance Directives Information Provided: Yes service: No Current occupational status: retired Physical Exam Vital Signs: Vital Signs: Last Vital Signs Temp 98.1 F 07/03/20 21:15 Pulse 99 07/03/20 21:15 Resp 18 07/03/20 21:15 BP 133/85 07/03/20 21:15 Pulse Ox 98 07/03/20 21:15 Body Mass Index 20.0 Appearance: Alert. Oriented X3. No acute distress. Eyes: Pupils equal, round and reactive to light. ENT: Pharynx normal. Neck: Normal inspection. Neck supple. No lymph nodes noted. No crepitus CVS: Normal heart rate and rhythm. Pulses normal. Normal S1 and S2 Respiratory: No respiratory distress. Breath sounds normal. No Wheezing. No rales Abdomen: Soft and nontender. No rigidity. No distention. good BS x4 Skin: Skin warm and dry. multiple ecchymoses on lateral aspect of left eye and left zygomatic process, and occipital area Extremities: No lower extremity edema. No lower extremity edema. No Lacerations. No Rash Neuro: Oriented X 3. No motor deficit. No sensory deficit. Moving all extermities. No slurred speech. Course Course Course Narrative: I discussed the labs and imaging with the patient, no acute pathology. I discussed with the patient whether she can be discharged home safely versus staying for case management and PT consult tomorrow. Patient states that she does not want PT or case management, Declined going anywhere else but home at this time. patient's fall was likely secondary due to alcohol consumption. ETOH obtained at 20:30 had a level of 200. from patient's records, usually her alcohol level rounds around 200 to 300 at this time, patient awake alert and oriented x3, ambulatory with help of a walker at baseline MDM - Altered Mental Status Lab Data Result diagrams: 07/03/20 20:31 07/03/20 20:36 Labs: Lab Results 07/03/20 07/03/20 07/03/20 Range/Units 20:30 20:30 20:31 WBC 10.2 (4.8-10.8) X10*3/uL RBC 4.19 L (4.20-5.50) X10*6/uL Hgb 13.6 (12.0-16.0) g/dl Hct 39.7 (37-47) % MCV 94.7 (80-98) fL MCH 32.5 (27.0-33.0) pg MCHC 34.3 (31.0-35.0) g/dl RDW 18.9 H (11.0-16.0) % Plt Count 265 (160-400) X10*3/uL MPV 8.9 L (9.4-12.3) fL Immature Gran % (Auto) 1.5 H (0.0-0.4) % Neut % (Auto) 83.4 H (45-73) % Lymph % (Auto) 10.2 L (20-40) % [place] % (Auto) 3.7 (2-11) % Eos % (Auto) 0.8 (0-4) % Baso % (Auto) 0.4 (0-2) % Lymph # (Auto) 1.0 L (1.2-4.9) X10*3/uL [place] # (Auto) 0.4 (0.1-1.2) X10*3/uL Eos # (Auto) 0.1 (0.0-0.4) X10*3/uL Baso # (Auto) 0.0 (0.0-0.2) X10*3/uL Abs Immat Gran (auto) 0.15 H (0.00-0.03) X10*3/uL Absolute Neuts (auto) 8.6 H (2.0-8.3) X10*3/uL Absolute Nucleated RBC 0.000 (0.0-0.012) X10*3/uL Nucleated RBC % (auto) 0.0 (0.0-0.2) /100WBC Sodium Cancelled Potassium Cancelled Chloride Cancelled Carbon Dioxide Cancelled Anion Gap Cancelled BUN Cancelled Creatinine Cancelled Estim Creat Clear Calc Cancelled Estimated GFR Cancelled Random Glucose Cancelled Calcium Cancelled Total Bilirubin Cancelled Direct Bilirubin Cancelled AST Cancelled ALT Cancelled Alkaline Phosphatase Cancelled Troponin I High Sens (<3.5-17.0) ng/L B-Natriuretic Peptide (<100) pg/mL Total Protein Cancelled Albumin Cancelled Lipase (8-78) U/L Urine Color Urine Appearance Urine pH (5.0-8.0) Ur Specific [place] (1.005-1.025) Urine Protein (NEG-TRACE) MG/DL Urine Glucose (UA) (NEG) MG/DL Urine Ketones (NEG) MG/DL Urine Blood (NEG) Urine Nitrite (NEG) Ur Leukocyte Esterase (NEG) Ethyl Alcohol 200 mg/dL 07/03/20 07/03/20 07/03/20 Range/Units 20:36 20:36 22:23 WBC (4.8-10.8) X10*3/uL RBC (4.20-5.50) X10*6/uL Hgb (12.0-16.0) g/dl Hct (37-47) % MCV (80-98) fL MCH (27.0-33.0) pg MCHC (31.0-35.0) g/dl RDW (11.0-16.0) % Plt Count (160-400) X10*3/uL MPV (9.4-12.3) fL Immature Gran % (Auto) (0.0-0.4) % Neut % (Auto) (45-73) % Lymph % (Auto) (20-40) % [place] % (Auto) (2-11) % Eos % (Auto) (0-4) % Baso % (Auto) (0-2) % Lymph # (Auto) (1.2-4.9) X10*3/uL [place] # (Auto) (0.1-1.2) X10*3/uL Eos # (Auto) (0.0-0.4) X10*3/uL Baso # (Auto) (0.0-0.2) X10*3/uL Abs Immat Gran (auto) (0.00-0.03) X10*3/uL Absolute Neuts (auto) (2.0-8.3) X10*3/uL Absolute Nucleated RBC (0.0-0.012) X10*3/uL Nucleated RBC % (auto) (0.0-0.2) /100WBC Sodium 138 Potassium 3.0 L Chloride 104 Carbon Dioxide 22 Anion Gap 15 BUN 15 D Creatinine 0.53 Estim Creat Clear Calc 80.9 Estimated GFR > 60 Random Glucose 77 D Calcium 7.3 L Total Bilirubin 0.5 Direct Bilirubin 0.4 AST 25 ALT 21 Alkaline Phosphatase 110 D Troponin I High Sens < 3.5 (<3.5-17.0) ng/L B-Natriuretic Peptide 19 (<100) pg/mL Total Protein 5.1 L Albumin 2.3 L Lipase 74 (8-78) U/L Urine Color YELLOW Urine Appearance CLEAR Urine pH 6.0 (5.0-8.0) Ur Specific [place] 1.020 (1.005-1.025) Urine Protein NEG (NEG-TRACE) MG/DL Urine Glucose (UA) NEG (NEG) MG/DL Urine Ketones NEG (NEG) MG/DL Urine Blood NEG (NEG) Urine Nitrite NEG (NEG) Ur Leukocyte Esterase NEG (NEG) Ethyl Alcohol mg/dL Imaging Data CT scan - head: Radiologist's impression: 1. No evidence of acute intracranial hemorrhage or edematous territorial infarction. 2. Chronic encephalomalacia of the anterior left frontal lobe. 3. Mild to moderate underlying microangiopathy and generalized cerebral volume loss. 4. Mildly displaced fractures of the left zygomatic arch, lateral wall of the left orbit, and lateral wall of the left maxillary sinus. Small volume layering blood products within the left maxillary sinus ECG Data ECG #1: Attestation: I personally reviewed and interpreted this ECG as follows: ( heart rate 92, normal sinus rhythm, QTC 442, no ST segment depressions or elevations, no T-wave inversions) Discharge Plan Discharge Clinical Impression: Hypokalemia, Alcohol intoxication, Fall Patient Disposition: Home, Self-Care Instructions: Alcohol Intoxication (ED) Additional Instructions: the stop drinking alcohol. Please follow-up with your primary care physician tomorrow. If you have any worsening or new symptoms, please return to the emergency room or call 911 Prescriptions: No Action atorvastatin 40 mg tablet 40 mg PO BEDTIME RF: 0 fluticasone propion-salmeterol [Wixela Inhub] 250-50 mcg/dose blister with device 1 puff PO Q12H RF: 0 cyanocobalamin (vitamin B-12) 1,000 mcg tablet 1 tab PO DAILY RF: 0 ascorbic acid (vitamin C) 250 mg tablet,chewable 250 mg PO DAILY RF: 0 ferrous sulfate 325 mg (65 mg iron) tablet 325 mg PO BIDWM RF: 0 folic acid 1 mg tablet 1 mg PO DAILY RF: 0 hydroxyzine HCl 25 mg tablet 25 mg PO DAILY PRN (Reason: Weight Gain) RF: 0 loratadine 10 mg tablet 10 mg PO DAILY PRN (Reason: allergies) RF: 0 escitalopram oxalate 5 mg tablet 5 mg PO DAILY RF: 0 omega-3 acid ethyl esters 1 gram capsule 1 cap PO DAILY RF: 0 mesalamine 400 mg capsule (with del rel tablets) 400 mg PO QID RF: 0 potassium chloride 10 mEq tablet extended release 10 meq PO DAILY Qty: 14 RF: 0 dicyclomine 10 mg capsule 10 mg PO TID PRN (Reason: Cramps) RF: 0 metronidazole 500 mg Tablet 500 mg PO BID Qty: 10 RF: 0 calcium carbonate-vitamin D3 [[place] Calcium-Vit D3] 250-125 mg-unit Tablet 1 tab PO DAILY Qty: 30 RF: 0 prednisone 10 mg tablet 10 mg PO DAILY Qty: 116 RF: 0 oxycodone 5 mg capsule 5 mg PO BID PRN (Reason: pain) Qty: 4 RF: 0
--- NOTE | 2020-07-03 19:59 | ECG_ITS ---
Test Reason : AMS Blood Pressure : / mmHG Vent. Rate : 092 BPM Atrial Rate : 092 BPM P-R Int : 126 ms QRS Dur : 066 ms QT Int : 358 ms P-R-T Axes : 044 000 052 degrees QTc Int : 442 ms Normal sinus rhythm Normal ECG When compared with ECG of 13-JUN-2020 07:29, Premature supraventricular complexes are no longer Present Referred By: Nadeen Durán Electronically Signed By:JOSEFINA VIERA MD
--- NOTE | 2020-07-03 19:59 | CT_ITS ---
EXAMINATION: CT HEAD WITHOUT CONTRAST CLINICAL INFORMATION: Possible fall. Potential loss of consciousness. COMPARISON: CT head from 05/31/2020. TECHNIQUE: Contiguous axial imaging was performed from the skull base to vertex without intravenous administration of contrast. This CT examination was performed using dose optimization techniques as appropriate, variously including the following: *Automated exposure control. *Adjustment of mA and/or kV according to patient size (this includes techniques or standardized protocols for targeted exams where dose is matched to indication/reason for exam; i.e. extremities or head). *Use of iterative reconstruction technique. DLP: 586 mGy-cm FINDINGS: There is no evidence of acute intracranial hemorrhage or edematous territorial infarction. Chronic encephalomalacia of the anterior left frontal lobe. Scattered hypoattenuation in the periventricular and deep white matter are consistent with mild to moderate microangiopathy. [place]-white matter differentiation is preserved. Proportional prominence of the ventricles and sulcal spaces. No evidence for obstructive hydrocephalus. No abnormal mass effect or midline shift. No extra-axial fluid collections. Calcific atherosclerotic disease of the intracranial internal carotid and vertebral arteries. No hyperdense vessel sign. Mildly displaced fractures of the left zygomatic arch, lateral wall of the left orbit, and lateral wall of the left maxillary sinus. Moderate degenerative arthropathy of the left temporomandibular joint. No evidence of acute fractures of the osseous calvarium. Mild mucosal thickening of the paranasal sinuses. Small volume layering blood products within the left maxillary sinus. Trace left-sided mastoid effusion. The right-sided mastoid is clear. Bilateral lens extractions. CT/CT head/brain wo con IMPRESSION: 1. No evidence of acute intracranial hemorrhage or edematous territorial infarction. 2. Chronic encephalomalacia of the anterior left frontal lobe. 3. Mild to moderate underlying microangiopathy and generalized cerebral volume loss. 4. Mildly displaced fractures of the left zygomatic arch, lateral wall of the left orbit, and lateral wall of the left maxillary sinus. Small volume layering blood products within the left maxillary sinus.
[2020-07-03 20:00] VITALS: BP 129/78; PULSE 95; RESP 18; TEMP 36.5; O2SAT 98
[2020-07-03 20:38] LABS: Basophils Percent Auto 0.4 % (0-2); Eosinophils Absolute Auto 0.1 X10*3/uL (0.0-0.4); Eosinophils Percent Auto 0.8 % (0-4); Hemoglobin 13.6 g/dl (12.0-16.0); PLT CLUMP 1; SCAN SMEAR FLAG 1
[2020-07-03 20:40] LABS: Hematocrit 39.7 % (37-47); Imm Gran Abs Auto 0.15 X10*3/uL (0.00-0.03); Imm Gran Pct Auto 1.5 % (0.0-0.4); Lymphocytes Percent Auto 10.2 % (20-40); MANUAL DIFF FLAG NO; Mean Corpuscular HGB Conc 34.3 g/dl (31.0-35.0); Mean Corpuscular Hemoglobin 32.5 pg (27.0-33.0); Mean Corpuscular Volume 94.7 fL (80-98); Mean Platelet Volume 8.9 fL (9.4-12.3); Monocytes Absolute Auto 0.4 X10*3/uL (0.1-1.2); Monocytes Percent Auto 3.7 % (2-11); Neutrophils Absolute Auto 8.6 X10*3/uL (2.0-8.3); Neutrophils Percent Auto 83.4 % (45-73); Platelet Count 265 X10*3/uL (160-400); Red Blood Count 4.19 X10*6/uL (4.20-5.50); Red Cell Distribution Width 18.9 % (11.0-16.0); White Blood Count 10.2 X10*3/uL (4.8-10.8)
[2020-07-03 20:56] LABS: Ethanol 200 mg/dL
[2020-07-03 21:15] VITALS: BP 133/85; PULSE 99; RESP 18; TEMP 36.7; O2SAT 98
[2020-07-03 21:16] LABS: Alanine Aminotransferase 21 U/L (0-31); Albumin Level 2.3 g/dL (3.5-5.0); Alkaline Phosphatase 110 U/L (39-117); Anion Gap 15 (12-20); Aspartate Amino Transferase 25 U/L (5-31); Bilirubin Direct 0.4 mg/dL (0.0-0.5); Bilirubin Total 0.5 mg/dL (0.0-1.0); Blood Urea Nitrogen 15 mg/dL (9-16); Calcium 7.3 mg/dL (8.4-10.2); Carbon Dioxide 22 mmol/L (22-29); Chloride 104 mmol/L (96-108); Creatinine Clr Calc Pharmacy 80.9; Estimated Glomerular Filt Rate > 60; Glucose Random 77 mg/dL (60-115); Lipase 74 U/L (8-78); Sodium 138 mmol/L (135-145); Total Protein 5.1 g/dL (6.5-8.0)
[2020-07-03 21:19] LABS: B Type Natriuretic Peptide 19 pg/mL (<100); Troponin-I High Sensitivity < 3.5 ng/L (<3.5-17.0)
[2020-07-03 22:36] LABS: Glucose Urine UA NEG (NEG); Leukocyte Esterase Urine NEG (NEG); Nitrite Urine NEG (NEG); Urine Blood NEG (NEG); Urine Ketones NEG (NEG); Urine Protein NEG (NEG-TRACE)
[2020-07-03 22:38] LABS: Appearance Urine CLEAR; Color Urine YELLOW
--- NOTE | 2020-07-03 23:30 | PC.NURSE ---
per pt ready for d/c, pt + ETOH. But does not have safe ride home at this time. Pt will be held in ED
[2020-07-04] VITALS: BP 128/69; RESP 18; O2SAT 98
[2020-07-04 01:52] VITALS: BP 136/78; PULSE 97; RESP 18; O2SAT 98
[2020-07-04 04:00] VITALS: RESP 18
== END 2020-07-04 06:33 | disposition home or self-care (01) ==
PROVIDERS: Emergency Provider Emergency Medicine
DX: S09.90XA Unspecified injury of head, initial encounter (principal); F10.129 Alcohol abuse with intoxication, unspecified; Y90.7 Blood alcohol level of 200-239 mg/100 ml; E87.6 Hypokalemia; G44.309 Post-traumatic headache, unspecified, not intractable; W01.0XXA Fall on same level from slipping, tripping and stumbling without subsequent striking against object, initial encounter; Y93.01 Activity, walking, marching and hiking; Y92.9 Unspecified place or not applicable; Y99.9 Unspecified external cause status; Z79.899 Other long term (current) drug therapy; Z87.891 Personal history of nicotine dependence
CPT/HCPCS: 36415; 70450; 80048; 80076; 80320; 81003; 83690; 83880; 84484; 85025; 93005; 99284

== ENCOUNTER 2021-01-04 12:30 | Emergency (ER) | payer MEDICARE, SELFPAY ==
--- NOTE | ~2021-01-04 | CT_ITS ---
EXAMINATION: CT ABDOMEN AND PELVIS WITH CONTRAST CLINICAL INFORMATION: UC flare, pain, diarrhea COMPARISON: 06/12/2020 TECHNIQUE: Multidetector volumetric imaging was performed from the superior aspect of the liver through the pubic symphysis following administration of 85 cc of Omnipaque intravenous contrast Sagittal and coronal reformatted images were obtained on the technologist workstation.. This CT examination was performed using dose optimization techniques as appropriate, variously including the following: *Automated exposure control *Adjustment of mA and/or kV according to patient size (this includes techniques or standardized protocols for targeted exams where dose is matched to indication/reason for exam; i.e. extremities or head) *Use of iterative reconstruction technique DLP: 314 mGy-cm FINDINGS: LUNG BASES: Minimal dependent atelectasis. Small hiatal hernia. LIVER, GALLBLADDER, AND BILIARY TREE: Diffuse fatty infiltration of the liver but no focal hepatic lesion nor biliary ductal dilatation. The gallbladder is unremarkable with no evidence of radiopaque gallstones, gallbladder wall thickening, or obvious pericholecystic inflammatory changes. PANCREAS: Unremarkable. SPLEEN: Unremarkable. ADRENAL GLANDS: Unremarkable. KIDNEYS AND URETERS: The kidneys are normal in size, shape, and attenuation. No hydronephrosis, hydroureter, or calculi seen. No perinephric stranding. BLADDER: Relatively distended with a right-sided [place] type bladder diverticula again noted GASTROINTESTINAL TRACT: Although decompressed, there is diffuse colonic wall thickening extending from the rectum to the cecum. Pericolonic inflammatory changes and mucosal enhancement are present consistent with the diffuse woodurff colitis as has been noted previously. No obstructive changes seen. Visualized small bowel unremarkable ABDOMINAL WALL: No significant hernia is appreciated. LYMPHOVASCULAR STRUCTURES: No lymphadenopathy. The aorta is unremarkable. PELVIC VISCERA: Unremarkable. OSSEOUS STRUCTURES: Mild multilevel degenerative changes in the spine. 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 The appearance would be consistent with patient's known underlying ulcerative colitis. Difficult to assess if there has been progression from the prior study due to the diffuse nature of the disease. Worsened fatty infiltration of the liver
[2021-01-04 12:42] VITALS: BP 98/74; PULSE 101; RESP 16; TEMP 36.9; O2SAT 97
[2021-01-04 12:47] VITALS: BP 109/74; PULSE 98; RESP 18; TEMP 36.9; O2SAT 98; BMI 18.4
--- NOTE | 2021-01-04 12:53 | ECG_ITS ---
Test Reason : SOB Blood Pressure : / mmHG Vent. Rate : 096 BPM Atrial Rate : 096 BPM P-R Int : 122 ms QRS Dur : 076 ms QT Int : 364 ms P-R-T Axes : 035 029 057 degrees QTc Int : 459 ms Normal sinus rhythm Nonspecific ST abnormality Abnormal ECG When compared with ECG of 03-JUL-2020 19:10, No significant change was found Referred By: Sissy Handley Electronically Signed By:JOSEFINA VIERA MD
--- NOTE | 2021-01-04 13:04 | ED_ITS ---
HPI - General Adult General Chief complaint: General Medical <JOÃO Ball - Last Filed: 01/04/21 17:33> Stated complaint: weakness/v/d <JOÃO Ball - Last Filed: 01/04/21 17:33> Time Seen by Provider: 01/04/21 12:53 <JOÃO Ball Last Filed: 01/04/21 17:33> Source: patient and EMS <JOÃO Ball Last Filed: 01/04/21 17:33> Mode of arrival: EMS <JOÃO Ball Last Filed: 01/04/21 17:33> Limitations: no limitations <JOÃO Ball Last Filed: 01/04/21 17:33> History of Present Illness HPI narrative: 70 y/o with history of alcohol abuse, refractory ulcerative colitis with current flare up over the last 2+ weeks who presents to the ER via EMS from outside where she was walking home from the bank and felt incredibly weak and fatigued. She was SOB and so weak all over she couldn't get up. She has had on going diarrhea for the last 2 weeks with intermittent blood when her wipes for the last 1 week. She had 12 bowel movements yesterday and was incontinent. She states stool was brown and non-bloody. She has some diffuse abdominal pain that comes and goes. Currently rating it at a 10/10. No nausea and vomiting. She has been having hot flashes but has not taken her temperature. She follows with Dr. Tello for her UC. She admits to occasionally missing one of her UC meds because it is 4 times per day. <JOÃO Ball - Last Filed: 01/04/21 17:33> MD complaint: weakness + diarrhea <JOÃO Ball Last Filed: 01/04/21 17:33> Onset (ago): week(s) (2.5) <JOÃO Ball Last Filed: 01/04/21 17:33> Location: abdomen <JOÃO Ball Last Filed: 01/04/21 17:33> Radiation: non-radiation <JOÃO Ball Last Filed: 01/04/21 17:33> Severity: moderate and similar to prior episodes <JOÃO Ball - Last Filed: 01/04/21 17:33> Severity scale (1-10): 10 <JOÃO Ball - Last Filed: 01/04/21 17:33> Quality: aching <JOÃO Ball - Last Filed: 01/04/21 17:33> Pain Consistency: constant <JOÃO Ball - Last Filed: 01/04/21 17:33> Relieving factors: none <JOÃO Ball - Last Filed: 01/04/21 17:33> Exacerbating factors: none <JOÃO Ball - Last Filed: 01/04/21 17:33> Associated symptoms: loss of appetite, malaise and weakness <JOÃO Ball - Last Filed: 01/04/21 17:33> Treatments prior to arrival: none <JOÃO Ball - Last Filed: 01/04/21 17:33> Related Data Home medications: Home Medications Medication Instructions Recorded Confirmed ascorbic acid (vitamin C) 250 mg PO DAILY 05/18/20 01/04/21 atorvastatin 40 mg PO BEDTIME 05/18/20 01/04/21 omega-3 acid ethyl esters 1 cap PO DAILY 05/18/20 01/04/21 dicyclomine 10 mg PO QID PRN 06/13/20 01/04/21 calcium carbonate 1 tab PO BID 01/04/21 01/04/21 cyanocobalamin (vitamin B-12) 1 tab PO DAILY 01/04/21 01/04/21 nabumetone 1 tab PO BID PRN 01/04/21 01/04/21 <JOÃO Ball - Last Filed: 01/04/21 17:33> Allergies/adverse reactions: Allergies Allergy/AdvReac Type Severity Reaction Status Date / Time strawberry [[place]] Allergy Intermediate HIVES Verified 05/18/20 10:34 Sulfa (Sulfonamide Allergy Intermediate RASH Verified 05/18/20 10:34 Antibiotics) morphine Allergy Unknown itching Verified 05/18/20 10:34 Strawberries Allergy Unknown Unknown Uncoded 05/18/20 10:34 [place] C Allergy Unknown rash Uncoded 12/07/14 00:00 <JOÃO Ball - Last Filed: 01/04/21 17:33> Review of Systems Review of Systems: Constitutional: No Fever, No Chills ENT/Mouth: No sore throat, No Rhinorrhea, No Swallowing Difficulty Cardiovascular: No Chest Pain, + SOB, No Orthopnea, No Edema Respiratory: No Cough, No Sputum, No Wheezing, No dyspnea Gastrointestinal: No Nausea, No Vomiting, + Diarrhea, + abdominal Pain, + Hematochezia (small amounts), No Melena Genitourinary: No Dysuria, No Urinary Frequency, No Hematuria Musculoskeletal: No joint pain, No Myalgias Skin: No Skin Lesions, No rash Neuro: + Weakness, No Numbness, + Dizziness, No Headache Psych: No Anxiety/Panic, No Depression Heme/Lymph: No Bruising, No Lymphadenopathy Endocrine: No Polyuria, No Polydipsia <JOÃO Ball - Last Filed: 01/04/21 17:33> [facility] Past Medical History Attestation statement: The following information was validated with the patient. <JOÃO Ball - Last Filed: 01/04/21 17:33> Medical History: Medical History Acute pancreatitis Alcohol abuse Anemia Anxiety CAD (coronary artery disease) Hyperlipidemia Hypomagnesemia Ulcerative colitis <JOÃO Ball - Last Filed: 01/04/21 17:33> Surgical History: Surgical History Hx of tubal ligation <JOÃO Ball - Last Filed: 01/04/21 17:33> Family History Family History: Family History (Updated 05/18/20 @ 16:39 by Cj Jaramillo MD) Father Liver cancer Alcoholism <JOÃO Ball - Last Filed: 01/04/21 17:33> Social History Social History: Social History Household Members: None Housing: House Do you presently have visiting nurse or other home services: Yes Alcohol intake: current Alcohol intake frequency: 3 or more drinks per day Alcohol type: hard liquor Second Hand Smoke Exposure: No Advance Directives: No Advance Directives Information Provided: No service: No Current occupational status: retired <JOÃO Ball - Last Filed: 01/04/21 17:33> Physical Exam Vital Signs: Vital Signs: Last Vital Signs Temp 97.4 F 01/04/21 21:09 Pulse 75 01/04/21 21:09 Resp 16 01/04/21 21:09 BP 93/63 01/04/21 21:09 Pulse Ox 98 01/04/21 21:09 Body Mass Index 18.4 Appearance: Alert. Oriented X3. No acute distress. Eyes: Pupils equal, round and reactive to light. ENT: Pharynx normal. Neck: Normal inspection. Neck supple. CVS: Normal heart rate and rhythm. Pulses normal. Respiratory: No respiratory distress. Breath sounds normal. Abdomen: Soft and nontender. +BS x4 Skin: Skin warm and dry. Normal skin color. Poor skin turgor. No rashes. Extremities: No lower extremity edema. Neuro: Oriented X 3. No motor deficit. No sensory deficit. Equal and symmetrical strength throughout, speaking in complete sentences. Non-focal. <JOÃO Ball - Last Filed: 01/04/21 17:33> Vital Signs: Last Vital Signs Temp 97.4 F 01/04/21 21:09 Pulse 75 01/04/21 21:09 Resp 16 01/04/21 21:09 BP 93/63 01/04/21 21:09 Pulse Ox 98 01/04/21 21:09 Body Mass Index 18.4 <Juan José Echeverria MD - Last Filed: 01/04/21 20:50> Vital Signs: Last Vital Signs Temp 97.4 F 01/04/21 21:09 Pulse 75 01/04/21 21:09 Resp 16 01/04/21 21:09 BP 93/63 01/04/21 21:09 Pulse Ox 98 01/04/21 21:09 Body Mass Index 18.4 <Ileana Hopkins MD - Last Filed: 01/05/21 07:10> Course Course Course Narrative: 70 y/o female with history of refractory UC with history of medication non-compliance and ETOH abuse presenting with generalized weakness, fatigue, SOB in the setting of diarrhea and UC flare for > 2 weeks. She is slightly tachycardic with soft BP on arrival, most likely due to hypovolemia. Low suspicion for sepsis at this time. Will check labs, CT scan and give IVF and Zofran. Will need to touch base with GI for recs. <JOÃO Ball - Last Filed: 01/04/21 17:33> 20:47, Patients etoh level went up because she had a liter of vodka that she was drinking from. I doubt GI losses account for magnesium and potassium losses as I think this more likely to be due to alcoholism. Her CT scan is unchanged from prior. <Juan José Echeverria MD - Last Filed: 01/04/21 20:50> Reevaluation(s) Reevaluation #1: Lactic acid 2.5, most likely due to dehydration. IVF ordered. Will add on ETOH level given documented alcohol abuse. <JOÃO Ball - Last Filed: 01/04/21 17:33> Reevaluation #2: ETOH level 158. Asking for narcotics for her abdominal pain, she is resting comfortably between care. No objective signs of pain. No episodes of diarrhea in the ER as of yet. CT scan pending. <JOÃO Ball - Last Filed: 01/04/21 17:33> Reevaluation #3: Mg++ and K+ both very low due to GI losses. Unable to tolerate PO repletion. IV KCL and Mg++ ordered. CT scan still pending. Will plan for admission for management of UC flare. Signed out to Dr. Echeverria who will assume care. <JOÃO Ball - Last Filed: 01/04/21 17:33> Medical Decision Making MDM Narrative Medical decision making narrative: Patient in a.m. awake alert oriented. Repeat abdominal exam is soft nontender. Electrolyte has been repleted. Patient is eating. Will discharge patient home. Currently in stable condition. <Ileana Hopkins MD - Last Filed: 01/05/21 07:10> Lab Data Result diagrams: : 01/04/21 13:57 01/04/21 13:57 <JOÃO Ball - Last Filed: 01/04/21 17:33> Labs: Lab Results 01/04/21 01/04/21 01/04/21 Range/Units 13:57 13:57 13:57 WBC 6.8 (4.8-10.8) X10*3/uL RBC 3.13 L D (4.20-5.50) X10*6/uL Hgb 10.5 L D (12.0-16.0) g/dl Hct 30.3 L D (37-47) % MCV 96.8 (80-98) fL MCH 33.5 H (27.0-33.0) pg MCHC 34.7 (31.0-35.0) g/dl RDW 17.3 H (11.0-16.0) % Plt Count 283 (160-400) X10*3/uL MPV 9.0 L (9.4-12.3) fL Immature Gran % (Auto) 0.4 (0.0-0.4) % Neut % (Auto) 66.9 (45-73) % Lymph % (Auto) 22.7 (20-40) % [place] % (Auto) 9.1 (2-11) % Eos % (Auto) 0.6 (0-4) % Baso % (Auto) 0.3 (0-2) % Lymph # (Auto) 1.6 (1.2-4.9) X10*3/uL [place] # (Auto) 0.6 (0.1-1.2) X10*3/uL Eos # (Auto) 0.0 (0.0-0.4) X10*3/uL Baso # (Auto) 0.0 (0.0-0.2) X10*3/uL Abs Immat Gran (auto) 0.03 (0.00-0.03) X10*3/uL Absolute Neuts (auto) 4.6 (2.0-8.3) X10*3/uL Absolute Nucleated RBC 0.000 (0.0-0.012) X10*3/uL Nucleated RBC % (auto) 0.0 (0.0-0.2) /100WBC Sodium 132 L (135-145) mmol/L Potassium 3.2 L (3.3-5.1) mmol/L Chloride 99 (96-108) mmol/L Carbon Dioxide 19 L (22-29) mmol/L Anion Gap 17 (12-20) BUN 9 (9-16) mg/dL Creatinine 0.77 (0.5-1.4) mg/dL Estim Creat Clear Calc 50.5 Estimated GFR > 60 Random Glucose 92 (60-115) mg/dL Lactic Acid (0.5-2.0) mmol/L Lactic Acid Fup @ 2Hr (0.5-2.0) mmol/L Lactic Acid Fup @ 4Hr (0.5-2.0) mmol/L Calcium 8.3 L D (8.4-10.2) mg/dL Magnesium 1.0 L* (1.6-2.6) mg/dL Total Bilirubin 0.5 (0.0-1.0) mg/dL Direct Bilirubin 0.4 (0.0-0.5) mg/dL AST 65 H (5-31) U/L ALT 26 (0-31) U/L Alkaline Phosphatase 149 H D (39-117) U/L Troponin I High Sens < 3.5 (<3.5-17.0) ng/L Total Protein 6.1 L (6.5-8.0) g/dL Albumin 2.9 L D (3.5-5.0) g/dL Lipase 27 (8-78) U/L Ethyl Alcohol mg/dL 01/04/21 01/04/21 01/04/21 Range/Units 13:58 15:33 16:49 WBC (4.8-10.8) X10*3/uL RBC (4.20-5.50) X10*6/uL Hgb (12.0-16.0) g/dl Hct (37-47) % MCV (80-98) fL MCH (27.0-33.0) pg MCHC (31.0-35.0) g/dl RDW (11.0-16.0) % Plt Count (160-400) X10*3/uL MPV (9.4-12.3) fL Immature Gran % (Auto) (0.0-0.4) % Neut % (Auto) (45-73) % Lymph % (Auto) (20-40) % [place] % (Auto) (2-11) % Eos % (Auto) (0-4) % Baso % (Auto) (0-2) % Lymph # (Auto) (1.2-4.9) X10*3/uL [place] # (Auto) (0.1-1.2) X10*3/uL Eos # (Auto) (0.0-0.4) X10*3/uL Baso # (Auto) (0.0-0.2) X10*3/uL Abs Immat Gran (auto) (0.00-0.03) X10*3/uL Absolute Neuts (auto) (2.0-8.3) X10*3/uL Absolute Nucleated RBC (0.0-0.012) X10*3/uL Nucleated RBC % (auto) (0.0-0.2) /100WBC Sodium (135-145) mmol/L Potassium (3.3-5.1) mmol/L Chloride (96-108) mmol/L Carbon Dioxide (22-29) mmol/L Anion Gap (12-20) BUN (9-16) mg/dL Creatinine (0.5-1.4) mg/dL Estim Creat Clear Calc Estimated GFR Random Glucose (60-115) mg/dL Lactic Acid 2.5 H* (0.5-2.0) mmol/L Lactic Acid Fup @ 2Hr 2.7 H* (0.5-2.0) mmol/L Lactic Acid Fup @ 4Hr (0.5-2.0) mmol/L Calcium (8.4-10.2) mg/dL Magnesium (1.6-2.6) mg/dL Total Bilirubin (0.0-1.0) mg/dL Direct Bilirubin (0.0-0.5) mg/dL AST (5-31) U/L ALT (0-31) U/L Alkaline Phosphatase (39-117) U/L Troponin I High Sens (<3.5-17.0) ng/L Total Protein (6.5-8.0) g/dL Albumin (3.5-5.0) g/dL Lipase (8-78) U/L Ethyl Alcohol 158 mg/dL 01/04/21 01/04/21 Range/Units 20:03 20:03 WBC (4.8-10.8) X10*3/uL RBC (4.20-5.50) X10*6/uL Hgb (12.0-16.0) g/dl Hct (37-47) % MCV (80-98) fL MCH (27.0-33.0) pg MCHC (31.0-35.0) g/dl RDW (11.0-16.0) % Plt Count (160-400) X10*3/uL MPV (9.4-12.3) fL Immature Gran % (Auto) (0.0-0.4) % Neut % (Auto) (45-73) % Lymph % (Auto) (20-40) % [place] % (Auto) (2-11) % Eos % (Auto) (0-4) % Baso % (Auto) (0-2) % Lymph # (Auto) (1.2-4.9) X10*3/uL [place] # (Auto) (0.1-1.2) X10*3/uL Eos # (Auto) (0.0-0.4) X10*3/uL Baso # (Auto) (0.0-0.2) X10*3/uL Abs Immat Gran (auto) (0.00-0.03) X10*3/uL Absolute Neuts (auto) (2.0-8.3) X10*3/uL Absolute Nucleated RBC (0.0-0.012) X10*3/uL Nucleated RBC % (auto) (0.0-0.2) /100WBC Sodium (135-145) mmol/L Potassium (3.3-5.1) mmol/L Chloride (96-108) mmol/L Carbon Dioxide (22-29) mmol/L Anion Gap (12-20) BUN (9-16) mg/dL Creatinine (0.5-1.4) mg/dL Estim Creat Clear Calc Estimated GFR Random Glucose (60-115) mg/dL Lactic Acid (0.5-2.0) mmol/L Lactic Acid Fup @ 2Hr (0.5-2.0) mmol/L Lactic Acid Fup @ 4Hr 2.0 (0.5-2.0) mmol/L Calcium (8.4-10.2) mg/dL Magnesium (1.6-2.6) mg/dL Total Bilirubin (0.0-1.0) mg/dL Direct Bilirubin (0.0-0.5) mg/dL AST (5-31) U/L ALT (0-31) U/L Alkaline Phosphatase (39-117) U/L Troponin I High Sens (<3.5-17.0) ng/L Total Protein (6.5-8.0) g/dL Albumin (3.5-5.0) g/dL Lipase (8-78) U/L Ethyl Alcohol 264 mg/dL <JOÃO Ball - Last Filed: 01/04/21 17:33> Lab Results 01/04/21 01/04/21 01/04/21 Range/Units 13:57 13:57 13:57 WBC 6.8 (4.8-10.8) X10*3/uL RBC 3.13 L D (4.20-5.50) X10*6/uL Hgb 10.5 L D (12.0-16.0) g/dl Hct 30.3 L D (37-47) % MCV 96.8 (80-98) fL MCH 33.5 H (27.0-33.0) pg MCHC 34.7 (31.0-35.0) g/dl RDW 17.3 H (11.0-16.0) % Plt Count 283 (160-400) X10*3/uL MPV 9.0 L (9.4-12.3) fL Immature Gran % (Auto) 0.4 (0.0-0.4) % Neut % (Auto) 66.9 (45-73) % Lymph % (Auto) 22.7 (20-40) % [place] % (Auto) 9.1 (2-11) % Eos % (Auto) 0.6 (0-4) % Baso % (Auto) 0.3 (0-2) % Lymph # (Auto) 1.6 (1.2-4.9) X10*3/uL [place] # (Auto) 0.6 (0.1-1.2) X10*3/uL Eos # (Auto) 0.0 (0.0-0.4) X10*3/uL Baso # (Auto) 0.0 (0.0-0.2) X10*3/uL Abs Immat Gran (auto) 0.03 (0.00-0.03) X10*3/uL Absolute Neuts (auto) 4.6 (2.0-8.3) X10*3/uL Absolute Nucleated RBC 0.000 (0.0-0.012) X10*3/uL Nucleated RBC % (auto) 0.0 (0.0-0.2) /100WBC Sodium 132 L (135-145) mmol/L Potassium 3.2 L (3.3-5.1) mmol/L Chloride 99 (96-108) mmol/L Carbon Dioxide 19 L (22-29) mmol/L Anion Gap 17 (12-20) BUN 9 (9-16) mg/dL Creatinine 0.77 (0.5-1.4) mg/dL Estim Creat Clear Calc 50.5 Estimated GFR > 60 Random Glucose 92 (60-115) mg/dL Lactic Acid (0.5-2.0) mmol/L Lactic Acid Fup @ 2Hr (0.5-2.0) mmol/L Lactic Acid Fup @ 4Hr (0.5-2.0) mmol/L Calcium 8.3 L D (8.4-10.2) mg/dL Magnesium 1.0 L* (1.6-2.6) mg/dL Total Bilirubin 0.5 (0.0-1.0) mg/dL Direct Bilirubin 0.4 (0.0-0.5) mg/dL AST 65 H (5-31) U/L ALT 26 (0-31) U/L Alkaline Phosphatase 149 H D (39-117) U/L Troponin I High Sens < 3.5 (<3.5-17.0) ng/L Total Protein 6.1 L (6.5-8.0) g/dL Albumin 2.9 L D (3.5-5.0) g/dL Lipase 27 (8-78) U/L Ethyl Alcohol mg/dL 01/04/21 01/04/21 01/04/21 Range/Units 13:58 15:33 16:49 WBC (4.8-10.8) X10*3/uL RBC (4.20-5.50) X10*6/uL Hgb (12.0-16.0) g/dl Hct (37-47) % MCV (80-98) fL MCH (27.0-33.0) pg MCHC (31.0-35.0) g/dl RDW (11.0-16.0) % Plt Count (160-400) X10*3/uL MPV (9.4-12.3) fL Immature Gran % (Auto) (0.0-0.4) % Neut % (Auto) (45-73) % Lymph % (Auto) (20-40) % [place] % (Auto) (2-11) % Eos % (Auto) (0-4) % Baso % (Auto) (0-2) % Lymph # (Auto) (1.2-4.9) X10*3/uL [place] # (Auto) (0.1-1.2) X10*3/uL Eos # (Auto) (0.0-0.4) X10*3/uL Baso # (Auto) (0.0-0.2) X10*3/uL Abs Immat Gran (auto) (0.00-0.03) X10*3/uL Absolute Neuts (auto) (2.0-8.3) X10*3/uL Absolute Nucleated RBC (0.0-0.012) X10*3/uL Nucleated RBC % (auto) (0.0-0.2) /100WBC Sodium (135-145) mmol/L Potassium (3.3-5.1) mmol/L Chloride (96-108) mmol/L Carbon Dioxide (22-29) mmol/L Anion Gap (12-20) BUN (9-16) mg/dL Creatinine (0.5-1.4) mg/dL Estim Creat Clear Calc Estimated GFR Random Glucose (60-115) mg/dL Lactic Acid 2.5 H* (0.5-2.0) mmol/L Lactic Acid Fup @ 2Hr 2.7 H* (0.5-2.0) mmol/L Lactic Acid Fup @ 4Hr (0.5-2.0) mmol/L Calcium (8.4-10.2) mg/dL Magnesium (1.6-2.6) mg/dL Total Bilirubin (0.0-1.0) mg/dL Direct Bilirubin (0.0-0.5) mg/dL AST (5-31) U/L ALT (0-31) U/L Alkaline Phosphatase (39-117) U/L Troponin I High Sens (<3.5-17.0) ng/L Total Protein (6.5-8.0) g/dL Albumin (3.5-5.0) g/dL Lipase (8-78) U/L Ethyl Alcohol 158 mg/dL 01/04/21 01/04/21 Range/Units 20:03 20:03 WBC (4.8-10.8) X10*3/uL RBC (4.20-5.50) X10*6/uL Hgb (12.0-16.0) g/dl Hct (37-47) % MCV (80-98) fL MCH (27.0-33.0) pg MCHC (31.0-35.0) g/dl RDW (11.0-16.0) % Plt Count (160-400) X10*3/uL MPV (9.4-12.3) fL Immature Gran % (Auto) (0.0-0.4) % Neut % (Auto) (45-73) % Lymph % (Auto) (20-40) % [place] % (Auto) (2-11) % Eos % (Auto) (0-4) % Baso % (Auto) (0-2) % Lymph # (Auto) (1.2-4.9) X10*3/uL [place] # (Auto) (0.1-1.2) X10*3/uL Eos # (Auto) (0.0-0.4) X10*3/uL Baso # (Auto) (0.0-0.2) X10*3/uL Abs Immat Gran (auto) (0.00-0.03) X10*3/uL Absolute Neuts (auto) (2.0-8.3) X10*3/uL Absolute Nucleated RBC (0.0-0.012) X10*3/uL Nucleated RBC % (auto) (0.0-0.2) /100WBC Sodium (135-145) mmol/L Potassium (3.3-5.1) mmol/L Chloride (96-108) mmol/L Carbon Dioxide (22-29) mmol/L Anion Gap (12-20) BUN (9-16) mg/dL Creatinine (0.5-1.4) mg/dL Estim Creat Clear Calc Estimated GFR Random Glucose (60-115) mg/dL Lactic Acid (0.5-2.0) mmol/L Lactic Acid Fup @ 2Hr (0.5-2.0) mmol/L Lactic Acid Fup @ 4Hr 2.0 (0.5-2.0) mmol/L Calcium (8.4-10.2) mg/dL Magnesium (1.6-2.6) mg/dL Total Bilirubin (0.0-1.0) mg/dL Direct Bilirubin (0.0-0.5) mg/dL AST (5-31) U/L ALT (0-31) U/L Alkaline Phosphatase (39-117) U/L Troponin I High Sens (<3.5-17.0) ng/L Total Protein (6.5-8.0) g/dL Albumin (3.5-5.0) g/dL Lipase (8-78) U/L Ethyl Alcohol 264 mg/dL <Juan José Echeverria MD - Last Filed: 01/04/21 20:50> Lab Results 01/04/21 01/04/21 01/04/21 Range/Units 13:57 13:57 13:57 WBC 6.8 (4.8-10.8) X10*3/uL RBC 3.13 L D (4.20-5.50) X10*6/uL Hgb 10.5 L D (12.0-16.0) g/dl Hct 30.3 L D (37-47) % MCV 96.8 (80-98) fL MCH 33.5 H (27.0-33.0) pg MCHC 34.7 (31.0-35.0) g/dl RDW 17.3 H (11.0-16.0) % Plt Count 283 (160-400) X10*3/uL MPV 9.0 L (9.4-12.3) fL Immature Gran % (Auto) 0.4 (0.0-0.4) % Neut % (Auto) 66.9 (45-73) % Lymph % (Auto) 22.7 (20-40) % [place] % (Auto) 9.1 (2-11) % Eos % (Auto) 0.6 (0-4) % Baso % (Auto) 0.3 (0-2) % Lymph # (Auto) 1.6 (1.2-4.9) X10*3/uL [place] # (Auto) 0.6 (0.1-1.2) X10*3/uL Eos # (Auto) 0.0 (0.0-0.4) X10*3/uL Baso # (Auto) 0.0 (0.0-0.2) X10*3/uL Abs Immat Gran (auto) 0.03 (0.00-0.03) X10*3/uL Absolute Neuts (auto) 4.6 (2.0-8.3) X10*3/uL Absolute Nucleated RBC 0.000 (0.0-0.012) X10*3/uL Nucleated RBC % (auto) 0.0 (0.0-0.2) /100WBC Sodium 132 L (135-145) mmol/L Potassium 3.2 L (3.3-5.1) mmol/L Chloride 99 (96-108) mmol/L Carbon Dioxide 19 L (22-29) mmol/L Anion Gap 17 (12-20) BUN 9 (9-16) mg/dL Creatinine 0.77 (0.5-1.4) mg/dL Estim Creat Clear Calc 50.5 Estimated GFR > 60 Random Glucose 92 (60-115) mg/dL Lactic Acid (0.5-2.0) mmol/L Lactic Acid Fup @ 2Hr (0.5-2.0) mmol/L Lactic Acid Fup @ 4Hr (0.5-2.0) mmol/L Calcium 8.3 L D (8.4-10.2) mg/dL Magnesium 1.0 L* (1.6-2.6) mg/dL Total Bilirubin 0.5 (0.0-1.0) mg/dL Direct Bilirubin 0.4 (0.0-0.5) mg/dL AST 65 H (5-31) U/L ALT 26 (0-31) U/L Alkaline Phosphatase 149 H D (39-117) U/L Troponin I High Sens < 3.5 (<3.5-17.0) ng/L Total Protein 6.1 L (6.5-8.0) g/dL Albumin 2.9 L D (3.5-5.0) g/dL Lipase 27 (8-78) U/L Ethyl Alcohol mg/dL 01/04/21 01/04/21 01/04/21 Range/Units 13:58 15:33 16:49 WBC (4.8-10.8) X10*3/uL RBC (4.20-5.50) X10*6/uL Hgb (12.0-16.0) g/dl Hct (37-47) % MCV (80-98) fL MCH (27.0-33.0) pg MCHC (31.0-35.0) g/dl RDW (11.0-16.0) % Plt Count (160-400) X10*3/uL MPV (9.4-12.3) fL Immature Gran % (Auto) (0.0-0.4) % Neut % (Auto) (45-73) % Lymph % (Auto) (20-40) % [place] % (Auto) (2-11) % Eos % (Auto) (0-4) % Baso % (Auto) (0-2) % Lymph # (Auto) (1.2-4.9) X10*3/uL [place] # (Auto) (0.1-1.2) X10*3/uL Eos # (Auto) (0.0-0.4) X10*3/uL Baso # (Auto) (0.0-0.2) X10*3/uL Abs Immat Gran (auto) (0.00-0.03) X10*3/uL Absolute Neuts (auto) (2.0-8.3) X10*3/uL Absolute Nucleated RBC (0.0-0.012) X10*3/uL Nucleated RBC % (auto) (0.0-0.2) /100WBC Sodium (135-145) mmol/L Potassium (3.3-5.1) mmol/L Chloride (96-108) mmol/L Carbon Dioxide (22-29) mmol/L Anion Gap (12-20) BUN (9-16) mg/dL Creatinine (0.5-1.4) mg/dL Estim Creat Clear Calc Estimated GFR Random Glucose (60-115) mg/dL Lactic Acid 2.5 H* (0.5-2.0) mmol/L Lactic Acid Fup @ 2Hr 2.7 H* (0.5-2.0) mmol/L Lactic Acid Fup @ 4Hr (0.5-2.0) mmol/L Calcium (8.4-10.2) mg/dL Magnesium (1.6-2.6) mg/dL Total Bilirubin (0.0-1.0) mg/dL Direct Bilirubin (0.0-0.5) mg/dL AST (5-31) U/L ALT (0-31) U/L Alkaline Phosphatase (39-117) U/L Troponin I High Sens (<3.5-17.0) ng/L Total Protein (6.5-8.0) g/dL Albumin (3.5-5.0) g/dL Lipase (8-78) U/L Ethyl Alcohol 158 mg/dL 01/04/21 01/04/21 Range/Units 20:03 20:03 WBC (4.8-10.8) X10*3/uL RBC (4.20-5.50) X10*6/uL Hgb (12.0-16.0) g/dl Hct (37-47) % MCV (80-98) fL MCH (27.0-33.0) pg MCHC (31.0-35.0) g/dl RDW (11.0-16.0) % Plt Count (160-400) X10*3/uL MPV (9.4-12.3) fL Immature Gran % (Auto) (0.0-0.4) % Neut % (Auto) (45-73) % Lymph % (Auto) (20-40) % [place] % (Auto) (2-11) % Eos % (Auto) (0-4) % Baso % (Auto) (0-2) % Lymph # (Auto) (1.2-4.9) X10*3/uL [place] # (Auto) (0.1-1.2) X10*3/uL Eos # (Auto) (0.0-0.4) X10*3/uL Baso # (Auto) (0.0-0.2) X10*3/uL Abs Immat Gran (auto) (0.00-0.03) X10*3/uL Absolute Neuts (auto) (2.0-8.3) X10*3/uL Absolute Nucleated RBC (0.0-0.012) X10*3/uL Nucleated RBC % (auto) (0.0-0.2) /100WBC Sodium (135-145) mmol/L Potassium (3.3-5.1) mmol/L Chloride (96-108) mmol/L Carbon Dioxide (22-29) mmol/L Anion Gap (12-20) BUN (9-16) mg/dL Creatinine (0.5-1.4) mg/dL Estim Creat Clear Calc Estimated GFR Random Glucose (60-115) mg/dL Lactic Acid (0.5-2.0) mmol/L Lactic Acid Fup @ 2Hr (0.5-2.0) mmol/L Lactic Acid Fup @ 4Hr 2.0 (0.5-2.0) mmol/L Calcium (8.4-10.2) mg/dL Magnesium (1.6-2.6) mg/dL Total Bilirubin (0.0-1.0) mg/dL Direct Bilirubin (0.0-0.5) mg/dL AST (5-31) U/L ALT (0-31) U/L Alkaline Phosphatase (39-117) U/L Troponin I High Sens (<3.5-17.0) ng/L Total Protein (6.5-8.0) g/dL Albumin (3.5-5.0) g/dL Lipase (8-78) U/L Ethyl Alcohol 264 mg/dL <Ileana Hopkins MD - Last Filed: 01/05/21 07:10> Imaging Data CT scan - abdomen: Radiologist's impression: IMPRESSION: Diffuse woodruff colitis from the rectum to the cecum with mucosal enhancement and pericolonic inflammatory changes as has been noted previously. The appearance would be consistent with patient's known underlying ulcerative colitis. Difficult to assess if there has been progression from the prior study due to the diffuse nature of the disease. Worsened fatty infiltration of the liver <Juan José Echeverria MD - Last Filed: 01/04/21 20:50> Critical Care Time Critical Care Time Critical Care Time: Yes <JOÃO Ball - Last Filed: 01/04/21 17:33> Total Critical Care Time: 36 <JOÃO Ball - Last Filed: 01/04/21 17:33> Attestation: I attest to critical care time with this patient who has significant electrolyte abnormalities due to severe GI losses. <JOÃO Ball - Last Filed: 01/04/21 17:33> Discharge Plan Discharge Clinical Impression: Hypokalemia, Hypomagnesemia Ulcerative colitis Qualifiers: Ulcerative colitis location: unspecified ulcerative colitis location Digestive disease complication type: without complication Qualified Code(s): K51.90 - Ulcerative colitis, unspecified, without complications <JOÃO Ball - Last Filed: 01/04/21 17:33> Patient Disposition: Home, Self-Care <JOÃO Ball - Last Filed: 01/04/21 17:33> Instructions: Ulcerative Colitis (ED), Abuse of Alcohol (ED) <JOÃO Ball - Last Filed: 01/04/21 17:33> Prescriptions: No Action nabumetone 750 mg tablet 1 tab PO BID PRN (Reason: Pain) RF: 0 cyanocobalamin (vitamin B-12) 500 mcg tablet 1 tab PO DAILY RF: 0 calcium carbonate 500 mg calcium (1,250 mg) tablet 1 tab PO BID RF: 0 atorvastatin 40 mg tablet 40 mg PO BEDTIME RF: 0 ascorbic acid (vitamin C) 250 mg tablet,chewable 250 mg PO DAILY RF: 0 omega-3 acid ethyl esters 1 gram capsule 1 cap PO DAILY RF: 0 dicyclomine 10 mg capsule 10 mg PO QID PRN (Reason: Diarrhea) RF: 0 <JOÃO Ball - Last Filed: 01/04/21 17:33> Referrals: Physician,Unknown [Primary Care Provider] - 2 days (Please stop drinking alcohol. Please eat a healthy diet. Drinking too much alcohol can kill you. Please go to detox.) <JOÃO Ball - Last Filed: 01/04/21 17:33>
[2021-01-04 14:03] LABS: MANUAL DIFF FLAG NO
[2021-01-04 14:05] LABS: Basophils Percent Auto 0.3 % (0-2); Eosinophils Percent Auto 0.6 % (0-4); Hematocrit 30.3 % (37-47); Hemoglobin 10.5 g/dl (12.0-16.0); Imm Gran Abs Auto 0.03 X10*3/uL (0.00-0.03); Imm Gran Pct Auto 0.4 % (0.0-0.4); Lymphocytes Absolute Auto 1.6 X10*3/uL (1.2-4.9); Lymphocytes Percent Auto 22.7 % (20-40); Mean Corpuscular HGB Conc 34.7 g/dl (31.0-35.0); Mean Corpuscular Hemoglobin 33.5 pg (27.0-33.0); Mean Corpuscular Volume 96.8 fL (80-98); Monocytes Absolute Auto 0.6 X10*3/uL (0.1-1.2); Monocytes Percent Auto 9.1 % (2-11); Neutrophils Absolute Auto 4.6 X10*3/uL (2.0-8.3); Neutrophils Percent Auto 66.9 % (45-73); Platelet Count 283 X10*3/uL (160-400); Red Blood Count 3.13 X10*6/uL (4.20-5.50); Red Cell Distribution Width 17.3 % (11.0-16.0); White Blood Count 6.8 X10*3/uL (4.8-10.8)
[2021-01-04] MEDS: ondansetron HCL 4 MG/2 ML VIAL IVPUSH (14:12)
[2021-01-04] MEDS: 0.9 % Sodium Chloride 1,000 ML 999 ML IVCONT ×2 (14:12→17:11)
[2021-01-04] MEDS: oxyCODONE HCl Immed Release 5 MG TABLET PO (14:31)
[2021-01-04 14:36] VITALS: BP 111/75; PULSE 96; RESP 17; O2SAT 98
[2021-01-04 15:28] LABS: Troponin-I High Sensitivity < 3.5 ng/L (<3.5-17.0)
[2021-01-04 15:29] VITALS: BP 95/64; PULSE 98; RESP 17; TEMP 36.9; O2SAT 99
[2021-01-04 15:47] LABS: Lactic Acid 2.5 mmol/L (0.5-2.0)
[2021-01-04 16:02] LABS: Reflex Lactate? Lactic Acid Added
[2021-01-04 16:13] LABS: Ethanol 158 mg/dL
[2021-01-04 16:21] LABS: Alanine Aminotransferase 26 U/L (0-31); Albumin Level 2.9 g/dL (3.5-5.0); Alkaline Phosphatase 149 U/L (39-117); Anion Gap 17 (12-20); Aspartate Amino Transferase 65 U/L (5-31); Bilirubin Direct 0.4 mg/dL (0.0-0.5); Bilirubin Total 0.5 mg/dL (0.0-1.0); Blood Urea Nitrogen 9 mg/dL (9-16); Calcium 8.3 mg/dL (8.4-10.2); Carbon Dioxide 19 mmol/L (22-29); Chloride 99 mmol/L (96-108); Creatinine Clr Calc Pharmacy 50.5; Estimated Glomerular Filt Rate > 60; Glucose Random 92 mg/dL (60-115); Lipase 27 U/L (8-78); Potassium 3.2 mmol/L (3.3-5.1); Sodium 132 mmol/L (135-145); Total Protein 6.1 g/dL (6.5-8.0)
--- NOTE | 2021-01-04 17:04 | PHA.MEDREC ---
Pharmacy Consult ? Medication Reconciliation Pharmacy has completed the medication reconciliation. Contacted [facility] pharmacy, then son and tye- all not 100 % sure what pt takes, will contact A 01/05/21 [phone] to get an accurate med list
[2021-01-04] MEDS: Magnesium Sulfate/H2O 2 GM/50 ML PIGGYBACK IV (17:12)
[2021-01-04] MEDS: iohexoL 350 MG/ML 100 ML INFUS..BTL IV (17:56)
[2021-01-04 18:00] VITALS: BP 80/52; PULSE 76; RESP 16; TEMP 36.9; O2SAT 95
[2021-01-04 18:11] LABS: ~Lactic Acid-LAB USE ONLY 2.7 mmol/L (0.5-2.0)
[2021-01-04] MEDS: Hydrocortisone Sod Succ/PF 100 MG VIAL IVPUSH (18:35)
[2021-01-04] MEDS: Potassium Chloride/H20 10 MEQ/100 ML PIGGYBACK 100 MEQ IV ×2 (18:35→20:04)
--- NOTE | 2021-01-04 18:41 | PC.NURSE ---
PT APPEARING DISTRAUGHT IN BED, MINOR SLURRING OF WORDS/MUMBLING, WHILE REPOSITIONING PT A 1/2 GALLON BOTTLE OF VODKA ROLLED OUT OF PT'S PURSE ON BED, BOTTLE REMOVED FROM PT'S ROOM, PT YELLED IN PROTEST, PT ASSURED BY THIS RN PROPERTY WILL BE RETURNED AFTER D/C, PT LABEL APPLIED TO BOTTLE AND GIVEN TO SECURITY.
[2021-01-04 19:12] LABS: Reflex Lactate? 2 Y
[2021-01-04 20:44] LABS: Ethanol 264 mg/dL
[2021-01-04 21:09] VITALS: BP 93/63; PULSE 75; RESP 16; TEMP 36.3; O2SAT 98
--- NOTE | 2021-01-04 22:07 | PC.NURSE ---
PT REFUSING CARE, REMOVED LEADS FROM CHEST, STS DOES NOT WANT IV INFUSION. PT GIVEN SANDWICH PER REQUEST, TOLERATING PO INTAKE W/OUT DIFFICULTY. PT AWAITING CLINICAL SOBRIETY FOR D/C HOME.
== END 2021-01-05 07:30 | disposition home or self-care (01) ==
PROVIDERS: Emergency Medicine; Physician Assistant; Emergency Provider Emergency Medicine
DX: K51.90 Ulcerative colitis, unspecified, without complications (principal); E87.6 Hypokalemia; E83.42 Hypomagnesemia; F10.10 Alcohol abuse, uncomplicated; Y90.6 Blood alcohol level of 120-199 mg/100 ml; Z91.14 Patient's other noncompliance with medication regimen
CPT/HCPCS: 36415; 74177; 80048; 80076; 82077; 83605; 83690; 83735; 84484; 85025; 87040; 93005; 96361; 96365; 96366; 96368; 96375; 99285; 99291; J2405; J3475; Q9967

== ENCOUNTER 2022-03-02 05:30 | Emergency (ER) | payer MEDICARE, SELFPAY ==
[2022-03-02 05:40] VITALS: BMI 18.3
--- NOTE | 2022-03-02 05:41 | PC.NURSE ---
TOD 0533.
--- NOTE | 2022-03-02 05:49 | ED_ITS ---
HPI - CPR General Chief Complaint: Cardiac Arrest/CPR Stated Complaint: cardiac arrest Time Seen by Provider: 03/02/22 05:38 History of Present Illness HPI narrative: Patient is a 71-year-old female presented today in cardiac arrest. Patient last known well time was about 23:00. At about 04:00 patient was noted to be down. Not breathing. EMS was contacted brought the patient to the emergency department. Related Data Home Medications Medication Instructions Recorded Confirmed ascorbic acid (vitamin C) 250 mg 250 mg PO DAILY 05/18/20 01/04/21 chewable tablet atorvastatin 40 mg tablet 40 mg PO BEDTIME 05/18/20 01/04/21 omega-3 acid ethyl esters 1 gram 1 cap PO DAILY 05/18/20 01/04/21 capsule dicyclomine 10 mg capsule 10 mg PO QID PRN Diarrhea 06/13/20 01/04/21 calcium carbonate 500 mg calcium 1 tab PO BID 01/04/21 01/04/21 (1,250 mg) tablet cyanocobalamin (vitamin B-12) 500 1 tab PO DAILY 01/04/21 01/04/21 mcg tablet nabumetone 750 mg tablet 1 tab PO BID PRN Pain 01/04/21 01/04/21 Allergies Allergy/AdvReac Type Severity Reaction Status Date / Time strawberry [[place]] Allergy Intermediate HIVES Verified 05/18/20 10:34 Sulfa (Sulfonamide Allergy Intermediate RASH Verified 05/18/20 10:34 Antibiotics) morphine Allergy Unknown itching Verified 05/18/20 10:34 Strawberries Allergy Unknown Unknown Uncoded 05/18/20 10:34 [place] C Allergy Unknown rash Uncoded 12/07/14 00:00 Review of Systems Review of Systems: Unable to obtain review systems secondary to patient's condition Yes Unobtainable due to mental condition PMF Past Medical History Medical History Acute pancreatitis Alcohol abuse Anemia Anxiety CAD (coronary artery disease) Hyperlipidemia Hypomagnesemia Ulcerative colitis Surgical History Hx of tubal ligation Family History Family History Father Liver cancer Alcoholism Social History Social History Household Members: None Housing: House Do you presently have visiting nurse or other home services: Yes Alcohol intake: current Alcohol intake frequency: 3 or more drinks per day Alcohol type: hard liquor Second Hand Smoke Exposure: No Advance Directives: No Advance Directives Information Provided: No service: No Current occupational status: retired Physical Exam Vital Signs: Vital Signs: BMI result Body Mass Index 18.3 In cardiac arrest 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 ENT: Poor dentition noted Neck: Normal inspection. Neck supple. No lymph nodes noted. No crepitus CVS: CPR in progress Respiratory: Positive breath sounds on bagging Abdomen: Nontender Skin: Mottled and cyanotic Extremities: No lower extremity edema. Neuro: CPR in progress MDM - Cardiac Arrest/CPR MDM Narrative Medical decision making narrative: Patient was found at approximately 04:45 by EMS to be in asystole. CPR was done. Patient was bagged. No line was established prior to arrival. Patient was done intubated. Remain in asystole the entire time coming to the ED. Over 45 minutes. On arrival patient was in asystole verified better monitor. The code was called at 05:34 a.m. patient's case discussed with the resident medical officer's office given previous history of ulcerative colitis, significant alcohol use, C diff. The mid depth to be natural. Patient's case discussed with family. Son at bedside. All questions were answered. Do not wish for an autopsy at this time. Medical Records Attestation: I reviewed the patient's medical records. Critical Care Time Critical Care Time Critical Care Time: Yes Total Critical Care Time: 35 Attestation: I have personally provided 35 minutes of critical care time exclusive of time spent on separately billable procedures. Time includes review of lab data, radiology results, discussion with consultants, and monitoring for potential decompensation. Interventions were performed as documented above Discharge Plan Discharge Clinical Impression: Cardiac arrest Patient Disposition: Prescriptions: No Action nabumetone 750 mg tablet 1 tab PO BID PRN (Reason: Pain) cyanocobalamin (vitamin B-12) 500 mcg tablet 1 tab PO DAILY calcium carbonate 500 mg calcium (1,250 mg) tablet 1 tab PO BID atorvastatin 40 mg tablet 40 mg PO BEDTIME ascorbic acid (vitamin C) 250 mg tablet,chewable 250 mg PO DAILY omega-3 acid ethyl esters 1 gram capsule 1 cap PO DAILY dicyclomine 10 mg capsule 10 mg PO QID PRN (Reason: Diarrhea)
--- NOTE | 2022-03-02 06:03 | PC.NURSE ---
[facility] contacted by this RN, spoke to [place]- . Per Chastity, patient has been accepted for potential donation. ME declined the case.
== END 2022-03-03 08:09 | disposition expired ==
PROVIDERS: Emergency Provider Emergency Medicine Emergency Medical Services
DX: I46.9 Cardiac arrest, cause unspecified (principal); Z79.899 Other long term (current) drug therapy
CPT/HCPCS: 99282; 99284